=== PATIENT | male | born 1985 | race Caucasian/White ===

== ENCOUNTER 2016-08-09 13:12 | Inpatient (IN) | payer MEDICAID, OTHER ==
[~2016-08-09] VITALS: Ht 182.9 cm; Wt 100.0 kg
[~2016-08-09 13:12] MED LIST: DIVA500T14 PO; HYDR50CA3 PO; PALI156D IM; RISP4TAB2 PO
[2016-08-09] MEDS ORDERED: Magnesium Hydroxide 10 mL Oral Concentration PO PRN (14:30)
[2016-08-09] MEDS ORDERED: LORazepam 1 mg Tablet PO PRN (14:30)
[2016-08-09] MEDS ORDERED: Benzocaine-Menthol Lozenge 2/Pkg PO PRN (14:30)
[2016-08-09] MEDS ORDERED: Alum-Mag Hydrox-Simeth 30 mL Suspension PO PRN (14:30)
--- NOTE | 2016-08-09 16:15 | NUR ---
Nurses Admission Note 31 year old male admitted after losing behavioral control in [facility] grocery store by throwing a glass jar smashing it to the floor and threatening employees. Patient per report, appeared to be responding to inner stimuli. He apparently did not remain medication compliant since his discharge on 08/02/16 from our unit and was unable to stay at the [employer] [facility] due to preference and then psychosis. Patient was served with papers to revoke LRO today. Patient received Haldol 5mg,Ativan 2mg and Benadryl 50mg IM last evening around [id number] at [facility] ER. Patient presented to the unit via stretcher in good behavioral control. His thoughts were clear,organized and reality based. He has not been sleeping while on the streets. He c/o racing thoughts and excessive energy. Patient signed admission paperwork,showered,ate well at dinner. Will maintain Q 15min.checks for safety and support.
--- NOTE | 2016-08-09 18:58 | NUR ---
[facility] Day Shift Pt arrived on the unit at approx 16:25. Pt completed the admission process without incident. Pt affect appears pleasant, though pt appears tired. Pt spends most of the shift getting acclimated to the unit, obtaining food from the dining room, and resting/sleeping in his room. Pt appears appropriate with staff and peers when active on the unit. Pt attended dinner and ate 100% of all meals.
[2016-08-09] MEDS ORDERED: Haloperidol 5 mg/mL Inj ONE (20:35)
--- NOTE | 2016-08-09 23:48 | NUR ---
Nurses Note Seclusion Patient was placed in seclusion at 2030 after an agitated episode prompted by a female peer where he yelled out loudly and grabbed the door on his room pulling it away and off its hinges before throwing it to the floor. He received Haldol 5mg,Ativan 2mg,Benadryl 50mg IM R deltoid. Patient eventually calmed and was returned to his room at 2220 where he remains asleep without signs of distress and will be monitored q 15min. checks for safety. Patient was able to be debriefed about the events.
--- NOTE | 2016-08-10 05:04 | NUR ---
nursing, nights, 11-7 s/o- has appeared to sleep with sitter outside of door after 2244. assessed q 15 minutes. a- no apparent distress. p- monitor behavior/emotional state, quality, times and amount of sleep, use and effect of medication. nalini
--- NOTE | 2016-08-10 05:53 | NUR ---
Pt was upbeat/manic and sexually inappropriate with staff stating he was sexually frustrated at start of shift , after being called names by another Pt he ripped door to his room off while yelling. Walked into seclusion 2029 and medicated. Continued to yell, hit things and then finally sing. Out of seclusion at 2220 to room. Pt asleep at 2245. 1:1 sitter for safety. Pt observed every 15 minutes as ordered.
[2016-08-10] MEDS: hydrOXYzine Pamoate 25 mg Capsule PO PRN (08:15)
[2016-08-10] MEDS ORDERED: Haloperidol 5 mg/mL Inj ONE ×2 (08:31→10:08)
[2016-08-10] MEDS ORDERED: diphenhydrAMINE 50 mg Capsule PO ONE (08:35)
[2016-08-10] MEDS ORDERED: LORazepam 2 mg Tablet ONE (10:13)
[2016-08-10] MEDS ORDERED: Haloperidol 5 mg/mL Inj IM PRN (10:20)
[2016-08-10 10:30] VITALS: BP 149/80; PULSE 106
[2016-08-10] MEDS: diphenhydrAMINE 50 mg Capsule PO PRN ×2 (10:31→15:53)
[2016-08-10] MEDS ORDERED: Divalproex (QD) 500 mg ER24 Tablet PO ONE (10:39)
[2016-08-10] MEDS ORDERED: risperiDONE 2 mg Tablet ONE (10:41)
--- NOTE | 2016-08-10 13:48 | HP ---
[address] [address] HISTORY AND PHYSICAL PATIENT: WILFRED HERNANDEZ : 1985 MR#: [id number] ADMIT: 08/09/2016 JOB ID: [id number] INITIAL EVALUATION: IDENTIFICATION OF PATIENT: The patient is a 31-year-old male well known to myself with recent discharge last week who reportedly was admitted under a revocation of a LR 90, after presenting to the emergency department at [facility] with altered mental status. There is suggestion that the patient has not taken medications since his discharge last week. CHIEF COMPLAINT: "I don't trust any of you, you need to go back to school and learn more about medications." This per patient report. HISTORY OF PRESENT ILLNESS: As stated above, the patient was admitted under a revocation order of his LR 90. The patient has a significant long-term history of diagnostic features including paranoid schizophrenia, polysubstance use and antisocial personality disorder. Last evening the patient escalated to the point of throwing a glass jar, smashing it on the floor, threatening employees. He reportedly was under a Code [place] and seclusion order with injections of Haldol, Ativan and Benadryl. On interview this morning, the patient was seen pacing in the hallways. He showed significant inability to follow directions. Had evidence of racing thoughts, thought blocking, visual tracking throughout. He was agreeable to administer oral doses of Haldol 10 mg, Ativan 2 and Benadryl 50 with also co-administration of Risperdal 2 mg and Depakote 1500 mg due to the fact that he had refused medications last evening. In reviewing his current status, the patient also has been notified that there will be a police report filed due to the fact that he destroyed one of the patient room doors pulling it off of its hinges and throwing it onto the floor. The patient notably has a long-term history of antisocial personality disorder and has had previous incarceration per report. PAST MEDICAL HISTORY: Substantial for allergies to CECLOR, PREDNISONE, SULFAMETHOXAZOLE, TRIMETHOPRIM. His current medications that he was discharged on included: 1. Depakote 1500 mg q.h.s. 2. Risperdal 4 mg q.h.s. However, there is suspicion that he has been noncompliant. Other medical history was reviewed through documentation through [facility]. The patient declined physical examination. PAST PSYCHIATRIC HISTORY: Substantial for multiple hospitalizations, most recent with discharge last week. His current services under monitoring at LR 90 was notably with [facility] and he evidently was residing at [facility]. He denied any usage of substances. However, there is questionable validity. SOCIAL HISTORY: As noted above, the patient is homeless. There was some question of possible drug usage and questionable validity of the patient's response. Abuse history was not reviewed. FAMILY HISTORY: Deferred. DEVELOPMENT HISTORY: Deferred. MENTAL STATUS EXAMINATION: General appearance: The patient was seen pacing the halls but was agreeable to administer oral doses of medication as noted above. His speech is pressured, tangential. His mood is dysphoric, labile. Affect is elevated. His thought process shows evidence of racing thoughts, flight of ideas, loose and disconnected thinking. Thought content: There was no evidence of suicidal or homicidal ideation. Admits to significant agitation and behavioral outburst as noted above. He appears to be quite paranoid, actively hallucinating. He was alert, oriented to place only. Attention and concentration are poor. Insight and judgment are poor. IMPRESSIONS: AXIS I 1. Schizophrenia, schizoaffective disorder, bipolar variant. 2. Schizophrenia, paranoid type, by history. 3. Polysubstance use disorder. AXIS II Antisocial personality features. AXIS III None. AXIS IV Stressors are noted for noncompliance with medications, chronic mental health issues, chronic substance abuse issues. AXIS V Global assessment of functioning of current 20. PLANS: 1. Recommendations for utilization of Depakote 1500 mg ER q.h.s., Risperdal 4 mg q.h.s., Seroquel 100 mg q.4 hours p.r.n. p.o. for agitation, Ativan 2 mg q.4 hours p.o. or IM for agitation or anxiety, Haldol 10 mg p.o. or IM q.4 hours for agitation, Benadryl 50 mg p.o. or IM q.4 hours for EPS. 2. Petition to revoke LR 90 with possible options including return to [facility].
[2016-08-10] MEDS: LORazepam 1 mg Tablet PO PRN (15:53)
--- NOTE | 2016-08-10 15:53 | NUR ---
Nurses PRN Patient requested and received Ativan 2mg ,Haldol 10mg, Benadryl 50mg PO at 1553 for increasing agitation in the dayroom with peers, will assess response. Addendum: 08/10/16 at 2304 by DEMETRIA HURTADO RN Nurses Note Evening Patient has remained in good control this shift. His mood has been depressed with a sad affect. He napped on and off,ate well at dinner and later had snacks and accepted HS medications.Will maintain q 15min. checks for safety and support.
--- NOTE | 2016-08-10 18:09 | NUR ---
Nursing Dayshift: S: "Give me a shot in the arm!" O: Patient has been irritable and agitated this AM. Accepted Ativan 1 mg PO and Vistaril 50 mg at 0815 with no effectiveness noted. Patient more agitated and making derogatory statements towards a female patient about her vagina. Given Haldol 5 mg and Benadryl 50 mg both IM at 0856. Calmer within the half hour. Increasingly agitated yelling above statement and received Ativan 2 mg, Haldol 10 mg, and Benadryl 50 mg all PO at 1030. No effectiveness. Patient continued yelling and MD ordered now doses of Depakote ER 500 mg and Risperdal 4 mg at 1110. Patient progressively calmer afterward and noted to be calm early afternoon. Has eaten well at meals. Has remained calmer through the afternoon and through present. A: Agitated. Belligerent. P: CPOC. Monitor mood and behavior.
--- NOTE | 2016-08-10 18:33 | NUR ---
Observations [id number] Pt was asleep upon start of shift. Upon waking, pt was moved to a different room. Mood was extremely hostile and aggressive towards another male patient, pt stating "I just want to murder that miky." Pt was able to calm down once medicated. Pt was also verbally aggressive towards a female patient as well. Pt paced bardales. He attended all meals, eating 100%. Pt spent the majority of the afternoon sleeping. He stated "I will not take anymore meds." Pt did not participate in group activities. He appears to be very forward to female staff and patients. Pt appears negative regarding medication and future plans. He was observed every 15 minutes of shift as directed.
[2016-08-10] MEDS: risperiDONE 2 mg Tablet PO SCH (21:02)
[2016-08-10] MEDS: Divalproex (QD) 500 mg ER24 Tablet PO SCH (21:03)
--- NOTE | 2016-08-11 05:42 | NUR ---
Nursing Noc Pt noted to be sleeping and start of shift and then up for short periods of time for ADLs. Pt noted to be mostly non-verbal or belligerent with interaction. "that miky think he is funny or something". Pt noted to mostly approach nursing station and stair at staff non-verbally. Continuing to monitor q15 minute, mood, behavior, emotional state, and sleep times. CP
--- NOTE | 2016-08-11 06:35 | NUR ---
Pt asleep much of shift [id number], 2129-. Concerned about outside court date. Pt observed every 15 minutes as ordered.
[2016-08-11] MEDS: diphenhydrAMINE 50 mg Capsule PO PRN (08:22)
[2016-08-11] MEDS: LORazepam 1 mg Tablet PO PRN (08:22)
--- NOTE | 2016-08-11 13:20 | PROG NOTE ---
[address] [address] PROGRESS NOTE PATIENT: WILFRED HERNANDEZ : 1985 MR#: [id number] ADMIT: 08/09/2016 JOB ID: [id number] DATE: 08/11/2016 CHIEF COMPLAINT: "I thought you were going to help me." This per patient report. HISTORY OF PRESENT ILLNESS: As stated above, the patient met with myself briefly in the Day Area. He is quite sedate and has received multiple medication interventions at this time. He continues to be belligerent and aggressive but is redirectable to some degree. His speech is slurred. He is dressed in hospital scrub attire. His mood is dysphoric. Affect irritable, labile. His thought process shows continuation of random flight of ideas, loose and disorganized thinking. His thought content: There has been no evidence of suicidal or homicidal ideation. He descriptively, per nursing staff, has been irritable and labile. He appears to be responding to internal stimulus consistently. He was alert, oriented to place only. Attention and concentration are poor. Insight and judgment are poor. PHYSICAL EXAMINATION: All vital signs are current. Temperature is 36.2, pulse 106, blood pressure 149/80. MEDICATIONS: Review includes Depakote 1500 mg q.h.s., Risperdal 4 mg q.h.s. Seroquel 100 mg q.4 h. p.r.n., Ativan 2 mg q.4 h. p.r.n., Haldol 10 mg q.4 h. p.r.n., and Benadryl 50 mg q.4 h. p.r.n. ASSESSMENT: Walker I: Schizoaffective disorder, bipolar variant. Schizophrenia, paranoid type, by history. Polysubstance use disorder. Walker II: Antisocial personality disorder. Walker III: None. Walker IV: Stressors are noted for chronic mental health issues, noncompliance. Walker V: Global Assessment of Functioning of current 20. PLAN: 1. Recommendations for continuation of all medications as noted. 2. Recommendations for petition to revoke probable on Sunday with revision of LR 90 to MR 90 based on the patient's significant difficulties with rapid decompensation post hospitalization. However, this will be deferred to final judgment of Dr. Kerns and the additional treatment team members.
--- NOTE | 2016-08-11 13:38 | NUR ---
Nursing Note [id number] Behavior S/O: Pt brought footboard from bed & pounded in on nursing station window. He then gave me the footboard & stated, "I wanted to throw this at people & knock their heads off. I could use it as a shield. Shortly afterward he requested medications this morning. He wanted Ativan, Benadryl, & Haldol. Ativan 2 mg, Benadryl 50 mg, & Haldol 10 mg given at 0822. Pt attempted to follow nurse through locked doors on unit. He smiled as the door was shut prior to him getting out. A: Pt con't to have inappropriate volatile behavior. P: Provide structured environment. Monitor medications & effects.
[2016-08-11 14:14] VITALS: BP 141/85; PULSE 97; RESP 16
[2016-08-11] MEDS: Divalproex (QD) 500 mg ER24 Tablet PO SCH (20:03)
[2016-08-11] MEDS: risperiDONE 2 mg Tablet PO SCH (20:04)
--- NOTE | 2016-08-11 20:33 | NUR ---
Case Management/Counselor: S: "You guys said you were going to help me!" O: Met with patient and psychiatrist. Patient slept 8 hours last night per staff. He denies S/I and H/I. He also denies auditory and visual hallucinations. He did not rate depression and anxiety. A: Patient is cooperative, unkept, unpredictable, irritable, labile, poor insight, poor judgment. P: Follow care plan, coordinate out-patient providers.
--- NOTE | 2016-08-12 04:39 | NUR ---
Nursing Noc Patients affect continues to be irritable and labile. Pt noted to attempt to get into nursing station this shift. Pt noted to attempt to interact with other disruptive patient, perhaps to escalate situation or gain attention. Pt little more directable and is not glaring at staff this shift. Pt noted to be first asleep at [id number], up for short while drinking water then back to bed for the rest of the shift. Continuing to monitor safety and sleep times with Q15 minute safety checks. Monitoring mood, bahavior, emotional state and medications. CP
--- NOTE | 2016-08-12 06:03 | NUR ---
Pt asleep most of shift. When up he was labile and easily agitated. Asleep 2100-145, 215 on. Pt observed every 15 minutes as ordered.
[2016-08-12] MEDS: LORazepam 1 mg Tablet PO PRN ×2 (06:04→17:40)
--- NOTE | 2016-08-12 17:00 | NUR ---
[id number]. nurs. S: "You make me sleep by over medicating me...Nobody liked me there, I like to be social but they hated me cept one miky and he was friendly because he wanted..." O: Pt given ativan 2mg at 0604, and seroquel 100mg at 0636 for agitated appearance and request for anxiety meds by pt. Pt loud and restless then returned to bed. Pt mostly asleep until 1330 at which time he was irritable and appearing sedated and slurring words . Within 30 minutes pt looking alert ,speech clear , and pt no longer irritable, testy, and social with staff and some ppeers. Pt needing to be reminded re appropriate boundaries in verbal commentary re other peers and staff. Pt active around unit, discussing his experience with poor/negative interactions with others in [facility]. A: Pt not involved in problem solving shelter self care planning. Pt impulsive with poor insight, frustrated with poor coping. Maintaining behavioural control on unit. P:CNCP Addendum: 08/13/16 at 1509 by KEV WESTBROOK RN After dinner pt asking for nicorette lozenge within an hour after last dose, and became angry, went and kicked far bardales exit door, pt c/o wanting to leave because he can't cope with craving for cigarettes ,refuses offered patch, pt given nicorette and went with staff to patio to exercise to address pent up negative energies, get fresh air, and given 2 mg of ativan at that time 1740. Pt's mood calmer and behaviour controlled after episode, pt continues to try to push at appropriate verbal boundaries.
--- NOTE | 2016-08-12 18:31 | NUR ---
Line Assembler./ c.m. S.:"I feel better. I feel frustrated. I should do more with myself." O.: met with pt. and MD together. Pt. denied SI/HI, denied AH/VH, denied racing thoughts, denied paranoid/delusional thoughts, denied anxiety. He was in and out of his room during the day. He was hoping to go home on for Mary. He also was concerned about his court date that he didn't remember if he missed it already or not. He had difficulty focusing on a conversation and was trying to convince MD on discharging home on Sunday or Sunday. Later pt. had a phone conversation with his family and he became very upset. A.: pt. is cooperative, social with peers, scattered, has unpredictable behavior, easily agitated. P.: monitor behavior, provide safety in the unit, encourage pt. to take meds; follow care plan.
--- NOTE | 2016-08-12 19:03 | PCM.PNPSY ---
Subjective Date of Service Aug 12, 2016 Subjective Patient reports that he is frustrated that he is not moving forward fast enough and not doing enough to progress as a person. He reports that he would like to get a job potentially helping others, or get on SSI and have others help him. He reports that he is concerned about court [facility] which he reports should have occurred today, 08/12/16. No side effect c/o other than drowsiness. Reports no further problems with peer which had resulted in property damage early in stay. Sleep: 7.75+ hours Appetite: "okay" Suicidal and homicidal ideation: denies Auditory hallucinations/Visual hallucinations: denies Other Psychotic Symptoms: disorganization, denies PI Anxiety/Depression: denies Current Medications Current Medications Divalproex Sodium 1,500 mg HS PO Last administered on 08/11/16at 20:03; Admin Dose 1,500 MG; Start 08/10/16 at 21:00 Nicotine Polacrilex 2 mg Q4H PRN BUCCAL Last administered on 08/12/16at 17:32; Admin Dose 2 MG; Start 08/11/16 at 16:40 Risperidone 4 mg HS PO Last administered on 08/11/16at 20:04; Admin Dose 4 MG; Start 08/10/16 at 21:00 Mental Status Exam Appearance: Unkept, Disheveled Attitude: Cooperative Behavior: Distractible Affect: Restricted, Blunted Mood: Anxious Speech Production: Paucity Speech Rate: Lags/Latency Speech Articulation: Normal Thought Content: Negativistic Danger to Self/Suicidal Ideati: None Danger to Others: None Hallucinations: Auditory (Denies), Visual (Denies) Consciousness: Somnolent (somewhat) Orientation: Person, Place, Date, Situation Memory: Short Term Memory (Impaired) Estimate Intellectual Function: Average Basis for IQ estimate: Awareness current events, Word use/vocabulary, Educational history Attention/Concentration & Cogn: Impaired Insight: Limited Judgement: Limited Mental Health Plan The patient is a 31-year-old male with a history of schizoaffective disorder with recent discharge last week who was admitted under a revocation of a LR 90, after presenting to the emergency department at [facility] with altered mental status. There is suggestion that the patient has not taken medications since his discharge last week. The patient was initially quite impulsive and tore a door off its hinges. He is calmer and more organized but still presenting as impulsive. [place] AXIS I 1. Schizoaffective disorder, bipolar type. 2. Polysubstance use disorder. AXIS II Antisocial personality features. AXIS III None. AXIS IV Stressors are noted for noncompliance with medications, chronic mental health issues, chronic substance abuse issues. AXIS V Global assessment of functioning = 30. Medications Medications to address General Physical Health Depakote 1500 mg ER q.h.s., Risperdal 4 mg q.h.s., Seroquel 100 mg q.4 hours p.r.n. p.o. for agitation, Ativan 2 mg q.4 hours p.o. or IM for agitation or anxiety, Hydroxyzine 50mg po q4hr PRN anxiety/agitation/insomnia Haldol 10 mg p.o. or IM q.4 hours for agitation, Benadryl 50 mg p.o. or IM q.4 hours for EPS. Treatments 1. Continue all medications as noted above. 2. Pseudoephedrine and dextromethorphan for coryzal symptoms 3. Patient encouraged to participate in group and milieu therapy. 4. Treatment team to meet with patient on a daily basis 5. Per Dr. Tate, "Recommendations for petition to revoke probable on Sunday with revision of LR 90 to MR 90 based on the patient's significant difficulties with rapid decompensation post hospitalization. However, this will be deferred to final judgment of Dr. Kerns and the additional treatment team members." 6. No special precautions indicated at this time. Charbel Sahu MD Aug 12, 2016 19:03
--- NOTE | 2016-08-12 19:26 | NUR ---
Observations 0700 to 1900 Pt struggled to maintain behavioral control. Pt came out for breakfast and lunch, but other slept during morning until 1330. Pt spent afternoon pacing hallways and conversing with other pts. Pt seemed mostly amiable, but attempts to provoke staff by walking closely next to them and behind them. Pt asked staff if they would be interested in fighting. Pt starting escalating around 1730 and began kicking door at end of pt hallway and screaming. Staff took pt to patio and played music and pt calmed down. Pt then went to sleep and is asleep as of writing. Pt ate 100% of meals and was observed every 15 minutes as ordered.
[2016-08-12] MEDS: risperiDONE 2 mg Tablet PO SCH (23:00)
[2016-08-12] MEDS: Divalproex (QD) 500 mg ER24 Tablet PO SCH (23:00)
--- NOTE | 2016-08-13 05:46 | NUR ---
Observations from [id number] Pt was asleep for most of the evening but when he did wake up, pt was very sexually inappropriate with female staff. He continues to ask for hugs even thought he knows it's against the rules and he asked this abstract writer to "get into bed with him." He is commenting on staff appearance and body parts, and doesn't stop even when told he' being inappropriate. Pt was asleep at 180 and stayed asleep until 2345, was up for 30 minutes and then went back to bed. Pt has been monitored every 15 minutes as directed,
--- NOTE | 2016-08-13 06:27 | NUR ---
Nursing Noc Pt cooperative with medications this shift. Sexually aggressive towards female staff. Noted to be sleeping mostly and Up for ADLs only. Continuing to monitor sleep times, mood behavior, and medications. BHCP Q15 minute safety checks throughtout the night.
[2016-08-13] MEDS: LORazepam 1 mg Tablet PO PRN (10:37)
[2016-08-13] MEDS: guaiFENesin 20 mg/mL 10 mL Syrup PO PRN ×2 (10:37→21:47)
--- NOTE | 2016-08-13 15:09 | NUR ---
1222-0051. nurs. S: "I am a weak person, I give into my cravings,...." O: Pt unable to seriously address his past hx of impulsivity and the adverse consequences of his actions, and px solve future effective coping stats. Pt back and forth to bed to sleep between 0500 and 0930 this am, then more consistently out of room restless around unit, interacting with staff with robin lerma, trying to get attention, trying to test boundaries verbally. Pt trying to minimally scrape and bang furniture to obtain reaction , pt escorted away from interacting with peer intrusively, and involved in ping pong with [facility]. Pt given 2 mg of ativan at 1037. and this med did appear to reduce pt's acting out behaviour and reduce further escalation. Addendum: 08/13/16 at 1539 by KEV WESTBROOK RN Pt able to report with some serious attention that his depression was 2/10 and anxiety "none" even when asked if he was anxious re. managing on discharge. Pt reports no SI. Pt out on patio for fresh air breaks and exercise with ball games over afternoon and appears to help him focus some of his restless energy and help him relax.
--- NOTE | 2016-08-13 15:35 | PCM.PNPSY ---
Subjective Date of Service Aug 13, 2016 Subjective The patient reports that he is "doing alright today." Patient reports that he is "ashamed that I did that" [break the door] "I felt I had to do something explosive." He reports that he is feeling stable enough for discharge but quickly snapped, smacked his fist into his hand, and became rather irritable when given the answer that he should try to not damage anything for the remainder of his stay as this had become a pattern and could potentially cause problems in the future. He reported that he would like to move forward regardless, "the next step is the first step because I'm at the bottom ring." Patient stated he would [facility] and then go to [facility]. Sleep: 7.75+ hours Appetite: "okay" Suicidal and homicidal ideation: denies Auditory hallucinations/Visual hallucinations: denies Other Psychotic Symptoms: disorganization, denies PI Anxiety: 09/05 Depression: 12/04 Current Medications Current Medications Guaifenesin 200 mg Q6H PRN PO Last administered on 08/13/16at 10:37; Admin Dose 200 MG; Start 08/13/16 at 10:20 Nicotine Polacrilex 2 mg Q4H PRN BUCCAL Last administered on 08/13/16at 11:06; Admin Dose 2 MG; Start 08/11/16 at 16:40 Mental Status Exam Appearance: Unkept, Disheveled Attitude: Cooperative, Hostile/Threatening (briefly) Behavior: Distractible Affect: Restricted Mood: Anxious Speech Production: Paucity Speech Rate: Lags/Latency Speech Articulation: Normal Thought Content: Negativistic Danger to Self/Suicidal Ideati: None Danger to Others: None Hallucinations: Auditory (Denies), Visual (Denies) Consciousness: Alert Orientation: Person, Place, Date, Situation Memory: Short Term Memory (Impaired) Estimate Intellectual Function: Average Basis for IQ estimate: Awareness current events, Word use/vocabulary, Educational history Attention/Concentration & Cogn: Impaired Insight: Limited Judgement: Limited Mental Health Plan The patient is a 31-year-old male with a history of schizoaffective disorder with recent discharge last week who was admitted under a revocation of a LR 90, after presenting to the emergency department at [facility] with altered mental status. There is suggestion that the patient has not taken medications since his discharge last week. The patient was initially quite impulsive and tore a door off its hinges. He is calmer and more organized but still presenting as impulsive. It is unclear what community resources remain available to him at this time due to his ongoing impulsivity. [place] AXIS I 1. Schizoaffective disorder, bipolar type. 2. Polysubstance use disorder. AXIS II Antisocial personality features. AXIS III None. AXIS IV Stressors are noted for noncompliance with medications, chronic mental health issues, chronic substance abuse issues. AXIS V Global assessment of functioning = 30. Medications Medications to address General Physical Health Depakote 1500 mg ER q.h.s., Risperdal 4 mg q.h.s., Seroquel 100 mg q.4 hours p.r.n. p.o. for agitation, Ativan 2 mg q.4 hours p.o. or IM for agitation or anxiety, Hydroxyzine 50mg po q4hr PRN anxiety/agitation/insomnia Haldol 10 mg p.o. or IM q.4 hours for agitation, Benadryl 50 mg p.o. or IM q.4 hours for EPS. Treatments 1. Continue all medications as noted above. 2. Pseudoephedrine and dextromethorphan for coryzal symptoms 3. Patient encouraged to participate in group and milieu therapy. 4. Treatment team to meet with patient on a daily basis 5. Per Dr. Tate, "Recommendations for petition to revoke probable on Sunday with revision of LR 90 to MR 90 based on the patient's significant difficulties with rapid decompensation post hospitalization. However, this will be deferred to final judgment of Dr. Kerns and the additional treatment team members." 6. No special precautions indicated at this time. 7. CBC, CMP, Valproic acid level in am. Charbel Sahu MD Aug 13, 2016 15:35
--- NOTE | 2016-08-13 16:32 | NUR ---
Ep Technologist./ c.m. S.:"I'm doing all right. I feel more like a human right now." O.: met with pt. and MD together in a private room. Pt. slept a lot last night but it was a broken sleep. He felt more rested today. He denied SI/HI, denied AH/VH, rated depression at 4/10 and anxiety at 1/10. He said that his thoughts were "slow" today. He is waiting for his family visit on Sunday. He said that he needed a stable housing. He wanted to go to [facility] prior to [facility]. He became angry and threatening after MD mentioned his violent behavior towards hospital property. "You can f---ing discharge me now! You are treating me like a f---ing child!I don't need this!" It took pt. some time to calm down. He was in and out of his room during the day. He was hitting renee occasionally and running in a bardales. A.: pt. is unpredictable, easily agitated and angry, intrusive at times, looks restless and gamy. P.: monitor behavior, provide safety in the unit; follow care plan.
[2016-08-13 17:28] VITALS: BP 133/78; PULSE 92; RESP 17
--- NOTE | 2016-08-13 17:43 | NUR ---
[facility] [place] Day Shift Pt maintained behavioral control throughout the shift. Pt affect appears mostly euthymic, somewhat manic. Pt spends most of the shift pacing the unit, interacting with peers, and participating in unit activities. Pt is mostly appropriate with staff and peers, but is occasionally inappropriate during interactions with female staff and peers. Pt is redirectable. Pt participated actively in afternoon group activity. Pt attended all meals and ate approx 100% of all meals.
[2016-08-13] MEDS: risperiDONE 2 mg Tablet PO SCH (21:18)
[2016-08-13] MEDS: Divalproex (QD) 500 mg ER24 Tablet PO SCH (21:18)
[2016-08-14] MEDS: hydrOXYzine Pamoate 25 mg Capsule PO PRN (01:00)
--- NOTE | 2016-08-14 05:57 | NUR ---
Nursing 7p-7a Pt remains hypersexual in thoughts and statements when around females. He has maintained behavioral control this shift. Able to follow direction for the most part. Visible out on the unit and participatory in unit activities. Took scheduled medication. He received Robitussin prior to bed for a bad cough and later received Vistaril 50mg for anxiety. Adequate sleep through the night with 7.5 hours. He awoke briefly x 2 and quickly back to sleep both times. His sleep has improved compared to previous nights.
[2016-08-14 09:31] LABS: BASOPHILS % (AUTO) 0.5 % (0-3); EOSINOPHILS % (AUTO) 2.7 % (0-5); MONOCYTES % (AUTO) 8.7 % (4-12); Mean Corpuscular Hemoglobin 28.9 pg (27.0-35.0); Mean Corpuscular Volume 85.3 fL (81-100); NEUTROPHILS % (AUTO) 70.8 % (40-74); Platelet Count 220 bil/L (150-400)
--- NOTE | 2016-08-14 13:37 | PCM.PNPSY ---
Subjective Date of Service Aug 14, 2016 Subjective I spent 30 minutes both reviewing his treatment plan and providing supportive and educational psychotherapy. I spent more than 50% of the time counseling the patient. I reviewed the treatment plan with the patient and discussed options available including the potential risks, benefits and side effects. Emery reports that he is ready for discharge and is hoping for a fdc. The Staff reports that he has been very active on the unit. He had been quite disruptive over the weekend and responded verbally in a verbally aggressive manner to another patient who was agitated. Today he is participating well in one-to-one unit and group activities. He slept 7 hours. He denies medication side effects. Patient was able to identify his medications and what they were used to treat. He acknowledged that he was medication noncompliant as an outpatient. He appeared to understand the need for medications by the questions he asked during our discussion. Current Medications Current Medications Guaifenesin 200 mg Q6H PRN PO Last administered on 08/13/16at 21:47; Admin Dose 200 MG; Start 08/13/16 at 10:20 Mental Status Exam Appearance: Unkept, Disheveled Attitude: Pleasant, Cooperative Behavior: Distractible Affect: Restricted Mood: Expansive, Anxious Speech Production: Paucity Speech Rate: Lags/Latency Speech Articulation: Normal Thought Content: Negativistic Danger to Self/Suicidal Ideati: None Danger to Others: None Hallucinations: Auditory (Denies), Visual (Denies) Consciousness: Alert Orientation: Person, Place, Date, Situation Memory: Short Term Memory (Impaired) Estimate Intellectual Function: Average Basis for IQ estimate: Awareness current events, Word use/vocabulary, Educational history Attention/Concentration & Cogn: Impaired Insight: Limited Judgement: Limited Result Diagram: 08/14/1691708/14/16917 Mental Health Plan The patient is a 31-year-old male with a history of antisocial personality disorder and also schizoaffective disorder with a recent discharge last week. He had been admitted under a revocation of a LR 90, after presenting to the emergency department at [facility] with altered mental status. There is suggestion that the patient has not taken medications since his discharge last week. The patient was initially quite impulsive and tore a door off its hinges this past weekend. He is calmer and more organized but still presenting as impulsive. It is unclear what community resources remain available to him at this time due to his ongoing impulsivity. We may need to petition for [facility] long-term treatment. [place] AXIS I 1. Schizoaffective disorder, bipolar type. 2. Polysubstance use disorder. AXIS II Antisocial personality features. AXIS III None. AXIS IV Stressors are noted for noncompliance with medications, chronic mental health issues, chronic substance abuse issues. AXIS V Global assessment of functioning = 35. Medications Medications to address General Physical Health Depakote 1500 mg ER q.h.s., Risperdal 4 mg q.h.s., Seroquel 100 mg q.4 hours p.r.n. p.o. for agitation, Ativan 2 mg q.4 hours p.o. or IM for agitation or anxiety, Hydroxyzine 50mg po q4hr PRN anxiety/agitation/insomnia Haldol 10 mg p.o. or IM q.4 hours for agitation, Benadryl 50 mg p.o. or IM q.4 hours for EPS. Treatments 1. Continue all medications as noted above. 2. Pseudoephedrine and dextromethorphan for coryzal symptoms 3. Patient encouraged to participate in group and milieu therapy. 4. Treatment team to meet with patient on a daily basis 5. Dr. Tate, "Recommendations for petition to revoke probable on Sunday with revision of LR 90 to MR 90 based on the patient's significant difficulties with rapid decompensation post hospitalization. I met with the patient this morning and we discussed least restrictive alternatives versus most restrictive alternatives. Patient repeatedly stated that he believed he could maintain as an outpatient if he had the right follow- up. I am concerned given the rapid number of rapid readmissions but will consider this over the next 24 hours. 6. No special precautions indicated at this time. 7. CBC, CMP, Valproic acid level in am. Ritchie Kerns MD Aug 14, 2016 13:37
[2016-08-14] MEDS: LORazepam 1 mg Tablet PO PRN (14:25)
--- NOTE | 2016-08-14 15:01 | NUR ---
Nursing Note [id number] Behavior S/O: Pt frequently pacing halls. Pt started to follow me to door going off unit. Confronted pt about following me. Pt smiled & stated, "You think I'm trying to scare you?!" Pt d/n follow further. Pt attending groups today. His goal today was to do laundry. Pt requested at 1415 for Ativan. He reports, "I feel angry for no reason." Ativan 2 mg given. Pt able to maintain behavioral control. A: Pt enjoys teasing people & has poor boundaries about how much is enough. P: Provide supportive environment. Monitor medications & effects.
[2016-08-14] MEDS: Divalproex (QD) 500 mg ER24 Tablet PO SCH (20:36)
[2016-08-14] MEDS: risperiDONE 2 mg Tablet PO SCH (20:36)
--- NOTE | 2016-08-14 22:08 | NUR ---
Pt maintained controlled behavior on unit. Affect appeared bright and Pt stated he was looking forward to DC in near future to [facility]. Pt up on unit socializing with peers and staff and conversation appropriate. Pt compliant with meds and is currently asleep in room. Q15min safety checks done per protocol, [facility] sleep, behavior, safety
--- NOTE | 2016-08-15 03:30 | NUR ---
Observations 1900 to 0700 Pt was in and out of his room for most of the evening. Pt had some snacks and walked the hallways for awhile before going back to his room. Pt affect was flat. Pt first appeared asleep at 21:30 and was observed every 15 minutes through the night as directed.
--- NOTE | 2016-08-15 05:45 | NUR ---
Nursing: surface plate inspector Patient noted to be awake briefly at 0100 to check the time. Patient appears to be sleeping on all subsequent safety checks.
[2016-08-15 10:06] VITALS: BP 127/68; PULSE 80; RESP 17
--- NOTE | 2016-08-15 11:49 | NUR ---
Nursing Note [id number] Behavior S/O: Pt out of room most of the day. Pt ate 100% of breakfast. Pacing halls. Blocked nurse from going into nurses station, smiled & stated sarcastically, "I'm sorry, I'm sorry, I'm sorry" while continuing to block nurse. Pt after a few minutes did move & laughed. Pt went to outside patio during group. Attend community meeting this morning. VS stable. Frequent multiple requests from staff. A: Pt unable to set appropriate boundaries. P: Provide supportive environment. Monitor medications & effects.
--- NOTE | 2016-08-15 12:00 | NUR ---
Process Development Chemist./ c.m. S.:"I'm good. I'm going to court tomorrow. Did you call [facility]? I'm going to [facility] tomorrow after the court." O.: met with pt. early in the morning. He is expecting to see his family today in the evening. He talked about his possible discharge tomorrow after court but he didn't know for sure where he would go. He denied SI/HI, denied AH/VH. He couldn't carry on a conversation well. He was moving constantly and talking about multiple things at once. His mood was changing all the time from even to angry and unpredictable. Later pt. asked the commercial lines underwriter to be present when he would have a mtg with MD. Love.: pt. is unpredictable, looks restless and tired, has poor boundaries. P.: monitor behavior, court tomorrow, provide safety in the unit; follow care plan.
--- NOTE | 2016-08-15 13:44 | NUR ---
Obs Dayshift Pt is participating, restless, bored, joking, energetic, good eye contact, engages well w/ peers and staff, mostly appropriate. Pt participates in groups, encourages peers. Pt spend a lot of time walking the unit, entertaining peers and staff, talking. Spent a hour outside bowling and talking. Read the daily reading in comm. meeting. Watched movie w/ peers. Pt made a statement that he was told he was going to [facility] and was ok with the idea, talked w/ a couple of peers that have been before. Good ADL's, Good meals
--- NOTE | 2016-08-15 13:51 | PCM.PNPSY ---
Subjective Date of Service Aug 15, 2016 Subjective I spent 30 minutes both reviewing his treatment plan and providing supportive and educational psychotherapy. I spent more than 50% of the time counseling the patient. I reviewed the Court senior care process with the patient and discussed options available including his right to talk with the printed circuit layout taper. Emery reports that he is ready for discharge and is hoping for a care home. The Staff reports that he has been hyperactive on the unit. He had been quite disruptive over the weekend and responded verbally in a verbally aggressive manner to another patient who was agitated. Today he is participating well in one-to-one unit and group activities. He slept 8 hours. He denies medication side effects. Patient was able to identify his medications and what they were used to treat. He appeared to understand the need for medications by the questions he asked during our discussion. Mental Status Exam Vital Signs Vital Signs Date Time Temp Pulse Resp B/P Pulse Ox O2 Delivery O2 Flow Rate FiO2 08/15/16 10:06 36.4 80 17 127/68 Appearance: Neat/well groomed Attitude: Pleasant, Cooperative Behavior: Distractible Affect: Labile Mood: Expansive, Anxious Speech Production: Normal Speech Rate: Normal Speech Articulation: Normal Thought Content: Appropriate Danger to Self/Suicidal Ideati: None Danger to Others: None Consciousness: Alert Orientation: Person, Place, Date, Situation Estimate Intellectual Function: Average Basis for IQ estimate: Awareness current events, Word use/vocabulary, Educational history Attention/Concentration & Cogn: Impaired Insight: Limited Judgement: Limited Result Diagram: 08/14/1691708/14/1618 Mental Health Plan He is a 31year-old white male, who has been struggling with symptoms of psychosis and mood instability for the past 10 years. He is medication noncompliant and tends to use recreational drugs. Since release he has not been taking his medications. He is currently showing multiple symptoms of psychosis with disorganized thought, flight of ideas, perseveration and extremely poor judgment and insight. Current symptoms: I have met with the above patient and he continues to have significant symptoms of psychosis. His main issue is schizophrenia and co- occurring issues are medication noncompliance and significant substance abuse. The condition is chronic and has been present for the past 10 years (The patient meets diagnostic features of paranoid schizophrenia, polysubstance use and antisocial personality disorder). At present it is of a moderate intensity manifesting with escalating to the point of throwing a glass jar, smashing items on the floor, threatening employees, and causing property damage on the unit to the tune of $3-$4000 by destroying one of the rooms. A behavioral Code [place] had to be called and he required seclusion and injections of Haldol, Ativan and Benadryl to maintain safety. All the above symptoms and behaviors are made worse by not taking his medications, poor sleep, interpersonal relationship conflicts and ongoing substance abuse. He continues to present with little insight into his mental illness or need for medications. I believe a revocation of his 90 day LRO is necessary given this lack of insight and severity of impairment. [place] AXIS I 1. Schizoaffective disorder, bipolar type. 2. Polysubstance use disorder. AXIS II Antisocial personality features. AXIS III None. AXIS IV Stressors are noted for noncompliance with medications, chronic mental health issues, chronic substance abuse issues. AXIS V Global assessment of functioning = 35. Medications Medications to address General Physical Health Depakote 1500 mg ER q.h.s., Risperdal 4 mg q.h.s., Seroquel 100 mg q.4 hours p.r.n. p.o. for agitation, Ativan 2 mg q.4 hours p.o. or IM for agitation or anxiety, Hydroxyzine 50mg po q4hr PRN anxiety/agitation/insomnia Haldol 10 mg p.o. or IM q.4 hours for agitation, Benadryl 50 mg p.o. or IM q.4 hours for EPS. Treatments 1. Continue all medications as noted above. 2. Pseudoephedrine and dextromethorphan for coryzal symptoms 3. Patient encouraged to participate in group and milieu therapy. 4. Treatment team to meet with patient on a daily basis 5. Patient scheduled for court in the a.m., I am requesting a 90 day revocation. 6. No special precautions indicated at this time. 7. CBC, CMP, Valproic acid level in am. Ritchie Kerns MD Aug 15, 2016 13:51
[2016-08-15] MEDS: guaiFENesin 20 mg/mL 10 mL Syrup PO PRN (13:58)
[2016-08-15] MEDS: Divalproex (QD) 500 mg ER24 Tablet PO SCH (20:17)
[2016-08-15] MEDS: risperiDONE 2 mg Tablet PO SCH (20:18)
[2016-08-15] MEDS: LORazepam 1 mg Tablet PO PRN (21:21)
[2016-08-15] MEDS: hydrOXYzine Pamoate 25 mg Capsule PO PRN (21:42)
--- NOTE | 2016-08-15 21:52 | NUR ---
Nursing Note Yaima Pt had visit from mother. Pt was increasingly restless, and energetic after visit with mom. Started making inappropriate remarks to female staff. Pacing hallway, humping tv. Pt was given ativan and Pt requested "more pills". Pt was asked to keep it down and Pt became verbally threatening to [facility]. Security was called. Pt was escorted to his room by security and staff. PO Haldol and Vistaril given. Pt debriefed that threatening staff was not appropriate and Pt agreed to try and calm down and stay in room. Q15 min safety checks done per protocol, PT currently resting in room. [facility] sleep, safety, behavior
--- NOTE | 2016-08-16 02:52 | NUR ---
Observations 1900 to 0700 Pt behavior was inappropriate and disruptive for most of the night. Pt told me me right when my shift started that he didn't like my voice so that's why he hates me. Pt said the same thing when I was filling out the board in the DR, to the point his visitors told him to calm down. Pt a few hours later was yelling and clapping when Pt's were asleep. Pt then began pelvic thrusting the TV and kicking the chairs and laughing. I asked Pt to quiet down because people were sleeping. He didn't like that, I then told him if he cant act in the proper way and be a little quieter that I would have to turn the movie off earlier. Pt then proceed to walk towards me doing some gang type movements with his hands over his head and lifting up his shirt as if he was carrying a gun. I said to him "come on Emery you're not a gangster now, just don't be so loud. He became enraged and walking towards me with his hands up in the fighting stance and threatening all types of violence against me. I went to the nurse station and called security for a show of force. Pt continued yelling obscenities at me until he seen me on the phone. Pt then laid down on the floor in front of the med window. Once security arrived I told him that he's the choice to go to his room or seclusion if he couldn't act in an appropriate way. Pt asked if he could go to his room on his own. I told he he can do that but he needs to stay there for the rest of the evening. Pt went to his stefano and yelled out many more obscenities at me including "fat f--k". Security stayed present until the Pt took his meds. Pt has stayed in his room as requested. Pt first appeared asleep at 21:30 and was observed every 15 minutes through the night as directed.
--- NOTE | 2016-08-16 06:18 | NUR ---
Sleep 11p-7a Adequate sleep through the night with no noted distress or awakening per protocol checks. Total sleep 7.5+ hours.
--- NOTE | 2016-08-16 12:36 | PCM.PNPSY ---
Subjective Date of Service Aug 16, 2016 Subjective I spent 30 minutes both reviewing his treatment plan and providing supportive and educational psychotherapy. I spent more than 50% of the time counseling the patient. I reviewed the Court care home process with the patient and discussed options available . He and his candy vendor decided to postpone his court until this Sunday. This was in hopes that Emery could stabilize and potentially be discharged. Emery reports that he is ready for discharge and is hoping for a fdc. Really wants to smoke cigarettes and is very frustrated about this. He showing very poor insight and judgment. His impulse control relative to normal situations is barely maintained. The Staff reports that he has been hyperactive on the unit. He had been quite disruptive over the weekend and responded verbally in a verbally aggressive manner to another patient who was agitated. Today he is participating well in one-to-one unit and group activities. He slept 7 hours. He denies medication side effects. Patient was able to identify his medications and what they were used to treat. He appeared to understand the need for medications by the questions he asked during our discussion. Mental Status Exam Appearance: Neat/well groomed Attitude: Pleasant, Cooperative Behavior: Distractible Affect: Labile Mood: Expansive, Anxious Speech Production: Normal Speech Rate: Normal Speech Articulation: Normal Thought Content: Appropriate Danger to Self/Suicidal Ideati: None Danger to Others: None Consciousness: Alert Orientation: Person, Place, Date, Situation Estimate Intellectual Function: Average Basis for IQ estimate: Awareness current events, Word use/vocabulary, Educational history Attention/Concentration & Cogn: Impaired Insight: Limited Judgement: Limited Result Diagram: 08/14/1691708/14/16 09 Mental Health Plan He is a 31year-old white male, who has been struggling with symptoms of psychosis and mood instability for the past 10 years. He is medication noncompliant and tends to use recreational drugs. Since release he has not been taking his medications. He is currently showing multiple symptoms of psychosis with disorganized thought, flight of ideas, perseveration and extremely poor judgment and insight. Current symptoms: I have met with the above patient and he continues to have significant symptoms of psychosis. His main issue is schizophrenia and co- occurring issues are medication noncompliance and significant substance abuse. The condition is chronic and has been present for the past 10 years (The patient meets diagnostic features of paranoid schizophrenia, polysubstance use and antisocial personality disorder). At present it is of a moderate intensity manifesting with escalating to the point of throwing a glass jar, smashing items on the floor, threatening employees, and causing property damage on the unit to the tune of $3-$4000 by destroying one of the rooms. A behavioral Code Mccarthy had to be called and he required seclusion and injections of Haldol, Ativan and Benadryl to maintain safety. All the above symptoms and behaviors are made worse by not taking his medications, poor sleep, interpersonal relationship conflicts and ongoing substance abuse. He continues to present with little insight into his mental illness or need for medications. I believe a revocation of his 90 day LRO is necessary given this lack of insight and severity of impairment. We have rescheduled court until this next Sunday. At present 08/16/2016 Emery is demonstrating the ability to interact in a calm and socially appropriate manner. He does requires multiple redirections from staff but is receptive to this feedback. [place] AXIS I 1. Schizoaffective disorder, bipolar type. 2. Polysubstance use disorder. AXIS II Antisocial personality features. AXIS III None. AXIS IV Stressors are noted for noncompliance with medications, chronic mental health issues, chronic substance abuse issues. AXIS V Global assessment of functioning = 35. Medications Medications to address General Physical Health Depakote 1500 mg ER q.h.s., Risperdal 4 mg q.h.s., Seroquel 100 mg q.4 hours p.r.n. p.o. for agitation, Ativan 2 mg q.4 hours p.o. or IM for agitation or anxiety, Hydroxyzine 50mg po q4hr PRN anxiety/agitation/insomnia Haldol 10 mg p.o. or IM q.4 hours for agitation, Benadryl 50 mg p.o. or IM q.4 hours for EPS. Treatments 1. Continue all medications as noted above. 2. Pseudoephedrine and dextromethorphan for coryzal symptoms 3. Patient encouraged to participate in group and milieu therapy. 4. Treatment team to meet with patient on a daily basis 5. Patient scheduled for court in the a.m., I am requesting a 90 day revocation. 6. No special precautions indicated at this time. 7. CBC, CMP, Valproic acid level in am. 8. Court date moved to this coming Sunday. Ritchie Kerns MD Aug 16, 2016 12:36
--- NOTE | 2016-08-16 16:32 | NUR ---
Obs Dayshift Pt spent the day in his room sleeping. Got up for meals and court, then went right back to bed. Little to no engaging w/ others this shift. Pt has been calm, quiet, tired. No ADL's, Good meals
--- NOTE | 2016-08-16 18:45 | NUR ---
[id number]. nurs . S/0: Pt noted to be in very quiet subdued mood through day, frequently returning to sleep on mattress on floor in bedrm and stated that he did not feel well some residual cold symptoms. Pt did attend court hearing remained calm under control and was continued to next Sunday. Pt did take patio break with RT and noted to be quiet without usual energetic movts and verbally brief , polite with few request or commentary. No prn meds given over day pt's temp 37.2 in am continue to monitor URI. P:CNCP
--- NOTE | 2016-08-16 18:54 | NUR ---
Case Management/Counselor: S: "Miladis, how are you today?" O: Met with patient. Patient slept 7+ hours last night per staff. However, patient slept the majority of the day. Patient denies S/I and H/I. He also denies auditory and visual hallucinations. He did not rate depression and anxiety. A: Patient is cooperative, labile, anxious, distractible, limited insight, limited judgment. P: Follow care plan, coordinate out-patient providers.
[2016-08-16] MEDS: risperiDONE 2 mg Tablet PO SCH (20:45)
[2016-08-16] MEDS: Divalproex (QD) 500 mg ER24 Tablet PO SCH (20:46)
--- NOTE | 2016-08-16 21:11 | NUR ---
Behavior Pt found lying in his bed, awake. I stated that he had spent alot of time in bed today. The pt agreed. He is afebrile. I asked if he felt ok. The pt stated, "I took alot of pills last night. I took ativan, haldol, and vistaril. I wanted to see what they would do to me." RN encouraged pt to be interactive in group area get a snack. Pt responded positively by coming out to the group area. Interacting and then having a snack. Care ongoing
--- NOTE | 2016-08-17 01:32 | NUR ---
Observations 1900 to 0700 Pt was in his room for most of the evening. Pt had some snacks before going back to his room. Pt affect was flat. Pt first appeared asleep at 21:45 and was observed every 15 minutes through the night as directed.
--- NOTE | 2016-08-17 05:36 | NUR ---
nursing, nights, 11-7 s/o- has appeared to sleep after 2144 to 299. had a snack and returned to bed, appearing to sleep after 344. assessed q 15 minutes. a- generally appropriate, interrupted sleep, no apparent distress. p- monitor behavior/emotional state, quality, times and amount of sleep, use and effect of medication. nalini
--- NOTE | 2016-08-17 12:35 | NUR ---
[id number]. nurs. S: "How can I be a 10/10 when I am in here" O: Pt out on unit reporting that his cold symptoms had improved from yesterday. Pt with bright affect, active out on unit seeking to engage with staff and some peers with joking commentary and behaviours also dancing and participating in grp physical exercising activities. pt stated to staff last night that he taken a lot of prn meds "to see what would happen" and felt that his quiet presentation, sedated, slowed behaviour, and long periods in bed was a result of these meds taken night before on . Pt had one flare of frustration and anger re. his continued hospitalization but does not appear to work on any discharge self care planing. A: Pt maintaining behavioural control does push boundaries verbally aware of appropriate lts. P:CNCP
--- NOTE | 2016-08-17 13:08 | PCM.PNPSY ---
Subjective Date of Service Aug 17, 2016 Subjective I spent 20 minutes both reviewing his treatment plan and providing supportive and educational psychotherapy. I spent more than 50% of the time counseling the patient. Emery reports that he is feeling sedated but calm.. He showing very poor insight and judgment. His impulse control relative to normal situations is barely maintained. The Staff reports that he has been calm and appropriate on the unit. He had been quite disruptive over the weekend and responded verbally in a verbally aggressive manner to another patient who was agitated. Today he is participating well in one-to-one unit and group activities. He slept 7.75 hours. He denies medication side effects. Mental Status Exam Appearance: Neat/well groomed Attitude: Pleasant, Cooperative Behavior: No unusual behavior Affect: Well Modulated/Appropriate Mood: Euthymic Speech Production: Normal Speech Rate: Normal Speech Articulation: Normal Thought Content: Appropriate Danger to Self/Suicidal Ideati: None Danger to Others: None Consciousness: Alert Orientation: Person, Place, Date, Situation Estimate Intellectual Function: Average Basis for IQ estimate: Awareness current events, Word use/vocabulary, Educational history Attention/Concentration & Cogn: Impaired Insight: Limited Judgement: Limited Result Diagram: 08/14/1691708/14/16917 Mental Health Plan He is a 31year-old white male, who has been struggling with symptoms of psychosis and mood instability for the past 10 years. He is medication noncompliant and tends to use recreational drugs. Since release he has not been taking his medications. He is currently showing multiple symptoms of psychosis with disorganized thought, flight of ideas, perseveration and extremely poor judgment and insight. Current symptoms: I have met with the above patient and he continues to have significant symptoms of psychosis. His main issue is schizophrenia and co- occurring issues are medication noncompliance and significant substance abuse. The condition is chronic and has been present for the past 10 years (The patient meets diagnostic features of paranoid schizophrenia, polysubstance use and antisocial personality disorder). At present it is of a moderate intensity manifesting with escalating to the point of throwing a glass jar, smashing items on the floor, threatening employees, and causing property damage on the unit to the tune of $3-$4000 by destroying one of the rooms. A behavioral Code Mccarthy had to be called and he required seclusion and injections of Haldol, Ativan and Benadryl to maintain safety. All the above symptoms and behaviors are made worse by not taking his medications, poor sleep, interpersonal relationship conflicts and ongoing substance abuse. He continues to present with little insight into his mental illness or need for medications. I believe a revocation of his 90 day LRO is necessary given this lack of insight and severity of impairment. We have rescheduled court until this next Sunday. Over the past 24 hours Emery has continued to demonstrate the ability to interact in a calm and socially appropriate manner. He has required less redirection from staff as he is starting to self manage. [place] AXIS I 1. Schizoaffective disorder, bipolar type. 2. Polysubstance use disorder. AXIS II Antisocial personality features. AXIS III None. AXIS IV Stressors are noted for noncompliance with medications, chronic mental health issues, chronic substance abuse issues. AXIS V Global assessment of functioning = 40. Medications Medications to address General Physical Health Depakote 1500 mg ER q.h.s., Risperdal 4 mg q.h.s., Seroquel 100 mg q.4 hours p.r.n. p.o. for agitation, Ativan 2 mg q.4 hours p.o. or IM for agitation or anxiety, Hydroxyzine 50mg po q4hr PRN anxiety/agitation/insomnia Haldol 10 mg p.o. or IM q.4 hours for agitation, Benadryl 50 mg p.o. or IM q.4 hours for EPS. Treatments 1. Continue all medications as noted above. 2. Pseudoephedrine and dextromethorphan for coryzal symptoms 3. Patient encouraged to participate in group and milieu therapy. 4. Treatment team to meet with patient on a daily basis 5. Patient scheduled for court in the a.m., I am requesting a 90 day revocation. 6. No special precautions indicated at this time. 7. CBC, CMP, Valproic acid level in am. 8. Court date moved to this coming Sunday Ritchie Kerns MD Aug 17, 2016 13:08
[2016-08-17] MEDS: guaiFENesin 20 mg/mL 10 mL Syrup PO PRN (16:08)
[2016-08-17 17:46] VITALS: BP 130/81; PULSE 103; RESP 18
--- NOTE | 2016-08-17 18:23 | NUR ---
[facility] Day Shift Pt maintained behavioral control throughout the shift. Pt affect appears mostly euthymic, somewhat manic. Pt spends most of the shift pacing the unit, interacting with peers, and participating in unit activities. Pt is mostly appropriate with staff and peers, but is occasionally inappropriate during interactions with female staff and peers. Pt is redirectable, though he requires more redirection in the evening. Pt did not attend community meeting. Pt participated actively in afternoon group activity. Pt attended all meals and ate approx 100% of all meals.
--- NOTE | 2016-08-17 18:45 | NUR ---
Case Management/Counselor: S: "I'm doing better today." O: Met with patient. Patient slept 7.75 hours last night per staff. Patient denies S/I and H/I. He also denies auditory and visual hallucinations. He did not rate depression and anxiety. A: Patient is cooperative, improving, brighter, smiling, pleasant, limited insight, limited judgment. P: Follow care plan, coordinate out-patient providers.
[2016-08-17] MEDS: LORazepam 1 mg Tablet PO PRN (19:27)
[2016-08-17] MEDS: diphenhydrAMINE 50 mg Capsule PO PRN (20:00)
[2016-08-17] MEDS: Divalproex (QD) 500 mg ER24 Tablet PO SCH (20:57)
[2016-08-17] MEDS: risperiDONE 2 mg Tablet PO SCH (20:58)
--- NOTE | 2016-08-18 05:14 | NUR ---
nursing, nights, 11-7 s/o- has appeared to sleep after 2144 during q 15 minute assessments. a- no apparent distress. p- monitor behavior/emotional state, quality, times and amount of sleep, use and effect of medication. nalini
--- NOTE | 2016-08-18 05:45 | NUR ---
Pt very active and inappropriate until going to bed and asleep at 2145. Pt observed every 15 minutes as ordered.
[2016-08-18 09:54] VITALS: BP 123/77; PULSE 107; RESP 20
--- NOTE | 2016-08-18 13:07 | PCM.PNPSY ---
Subjective Date of Service Aug 18, 2016 Subjective I spent 30 minutes both reviewing his treatment plan and providing supportive and educational psychotherapy. I spent more than 50% of the time counseling the patient. Emery reports that he is feeling calm.. He showing improved insight and judgment. His impulse control relative to normal social situations markedly improved. The Staff reports that he has been calm and appropriate on the unit. Today he is participating well in one-to-one unit and group activities. He slept 7.75 hours. He is hoping to discharge to a least restrictive [facility] rather than [facility]. He denies medication side effects. Mental Status Exam Vital Signs Vital Signs Date Time Temp Pulse Resp B/P Pulse Ox O2 Delivery O2 Flow Rate FiO2 08/18/16 09:54 36.6 107 20 123/77 Appearance: Neat/well groomed Attitude: Pleasant, Cooperative Behavior: No unusual behavior Affect: Well Modulated/Appropriate Mood: Euthymic Speech Production: Normal Speech Rate: Normal Speech Articulation: Normal Thought Content: Appropriate Danger to Self/Suicidal Ideati: None Danger to Others: None Consciousness: Alert Orientation: Person, Place, Date, Situation Estimate Intellectual Function: Average Basis for IQ estimate: Awareness current events, Word use/vocabulary, Educational history Attention/Concentration & Cogn: Impaired Insight: Limited Judgement: Limited Result Diagram: 08/14/1691708/14/16917 Mental Health Plan He is a 31year-old white male, who has been struggling with symptoms of psychosis and mood instability for the past 10 years. He is medication noncompliant and tends to use recreational drugs. Since release he has not been taking his medications. He is currently showing multiple symptoms of psychosis with disorganized thought, flight of ideas, perseveration and extremely poor judgment and insight. Current symptoms: I have met with the above patient and he continues to have significant symptoms of psychosis. His main issue is schizophrenia and co- occurring issues are medication noncompliance and significant substance abuse. The condition is chronic and has been present for the past 10 years (The patient meets diagnostic features of paranoid schizophrenia, polysubstance use and antisocial personality disorder). At present it is of a moderate intensity manifesting with escalating to the point of throwing a glass jar, smashing items on the floor, threatening employees, and causing property damage on the unit to the tune of $3-$4000 by destroying one of the rooms. A behavioral Code Mccarthy had to be called and he required seclusion and injections of Haldol, Ativan and Benadryl to maintain safety. All the above symptoms and behaviors are made worse by not taking his medications, poor sleep, interpersonal relationship conflicts and ongoing substance abuse. He continues to present with little insight into his mental illness or need for medications. I believe a revocation of his 90 day LRO is necessary given this lack of insight and severity of impairment. We have rescheduled court until this next Sunday. Over the past 48 hours Emery has continued to demonstrate the ability to interact in a calm and socially appropriate manner. He has required less redirection from staff as he is starting to self manage. [place] AXIS I 1. Schizoaffective disorder, bipolar type. 2. Polysubstance use disorder. AXIS II Antisocial personality features. AXIS III None. AXIS IV Stressors are noted for noncompliance with medications, chronic mental health issues, chronic substance abuse issues. AXIS V Global assessment of functioning = 40. Medications Medications to address General Physical Health Depakote 1500 mg ER q.h.s., Risperdal 4 mg q.h.s., Seroquel 100 mg q.4 hours p.r.n. p.o. for agitation, Ativan 2 mg q.4 hours p.o. or IM for agitation or anxiety, Hydroxyzine 50mg po q4hr PRN anxiety/agitation/insomnia Haldol 10 mg p.o. or IM q.4 hours for agitation, Benadryl 50 mg p.o. or IM q.4 hours for EPS. Treatments 1. Continue all medications as noted above. 2. Pseudoephedrine and dextromethorphan for coryzal symptoms 3. Patient encouraged to participate in group and milieu therapy. 4. Treatment team to meet with patient on a daily basis 5. Patient scheduled for court in the a.m., I am requesting a 90 day revocation. 6. No special precautions indicated at this time. 7. CBC, CMP, Valproic acid level in am. 8. Court date moved to this coming Sunday Ritchie Kerns MD Aug 18, 2016 13:07
--- NOTE | 2016-08-18 14:33 | NUR ---
Nursing Note Days Pt has been up socializing with staff and peers most of morning. Pt overly energetic, restless and continues making inappropriate comments to female staff . Pt compliant with meds and took PRN Motrin for pain. Pt has been cooperative and no anger outbursts noted on shift. Pt currently sleeping in room. Q15 min safety checks done per protocol, [facility] sleep, safety, behavior
[2016-08-18] MEDS: LORazepam 1 mg Tablet PO PRN (16:51)
--- NOTE | 2016-08-18 17:00 | NUR ---
Case Management/Counselor: S: "What are we doing here people?" O: Met with patient and psychiatrist. Patient slept 7.5 hours last night per staff. Patient denies S/I and H/I. He also denies auditory and visual hallucinations. He did not rate depression and anxiety. This card writer hand faxed PACT Team screening application A: Patient is cooperative, improving, euthymic, limited insight, limited judgment. P: Follow care plan, coordinate out-patient providers.
--- NOTE | 2016-08-18 21:12 | NUR ---
Observations 0900 to 2130 Pt appears to be labile, inappropriate at times, preoccupied and poor boundaries. Pt speech and eye contact was good. Pt was social with staff and select peers when approached. Pt attended group and unit activities. Pt listened to music and paced in the hallway. Pt to a shower and attended to ADL's. Pt appears to be internally preoccupied. Pt maintained behavior throughout the shift for the most part. Pt needs redirection and talked to about boundaries. Pt attended meals in the D.R. and ate 100% of breakfast, 100% of lunch and 100% of dinner. Pt ate snack. Pt had a couple of visitors and it appeared to go well. Pt was observed every 15 minutes throughout the shift as ordered.
[2016-08-18] MEDS: Divalproex (QD) 500 mg ER24 Tablet PO SCH (21:30)
[2016-08-18] MEDS: risperiDONE 2 mg Tablet PO SCH (21:30)
--- NOTE | 2016-08-18 21:45 | NUR ---
Nurses Note Evening Patient has maintained behavioral control this shift. He enjoyed a visit from his mother and sister which improved his mood. He had a period earlier in the shift requiring an Ativan 2mg at 1651 for increasing disorganization and hyper active behaviors with calming effect. Patient continues to lack insight into illness and management of same. Will maintain q 15min.checks for safety,encourage continued medication compliance. Addendum: 08/18/16 at 2201 by DEMETRIA HURTADO RN Amended: Links added.
--- NOTE | 2016-08-19 05:19 | NUR ---
nursing, nights, 11-7 s/o- has appeared to sleep after 2129 during q 15 minute assessments. a- no apparent distress. p- monitor behavior/emotional state, quality, times and amount of sleep, use and effect of medication. nalini
--- NOTE | 2016-08-19 05:25 | NUR ---
Pt had visit from mother and sister. Was up interacting on unit for a while and was excited that he had signed PACT team paperwork to help get DC planning going. Asleep at 2130. Pt observed every 15 minutes as ordered.
--- NOTE | 2016-08-19 12:37 | PCM.PNPSY ---
Subjective Date of Service Aug 19, 2016 Subjective I spent 20 minutes both reviewing his treatment plan and providing supportive and educational psychotherapy. I spent more than 50% of the time counseling the patient. Emery reports that he is feeling calm and is requesting discharge. He is showing improved insight and judgment. His impulse control relative to normal social situations continues to be poor but markedly improved from his previous hospitalizations. The Staff reports that he has been appropriate on the unit. Today he is participating well in one-to-one unit and group activities. He slept 7.75 hours. He is hoping to discharge to a least restrictive [facility] rather than [facility]. He denies medication side effects. Mental Status Exam Appearance: Neat/well groomed Attitude: Pleasant, Cooperative Behavior: No unusual behavior Affect: Well Modulated/Appropriate Mood: Euthymic Thought Process/Associations: Logical/Sequential, Goal Directed Speech Production: Normal Speech Rate: Normal Speech Articulation: Normal Thought Content: Appropriate Danger to Self/Suicidal Ideati: None Danger to Others: None Consciousness: Alert Orientation: Person, Place, Date, Situation Estimate Intellectual Function: Average Basis for IQ estimate: Awareness current events, Word use/vocabulary, Educational history Attention/Concentration & Cogn: Impaired Insight: Limited Judgement: Limited Result Diagram: 08/14/1691708/14/16917 Mental Health Plan He is a 31year-old white male, who has been struggling with symptoms of psychosis and mood instability for the past 10 years. He is medication noncompliant and tends to use recreational drugs. Since release he has not been taking his medications. He is currently showing multiple symptoms of psychosis with disorganized thought, flight of ideas, perseveration and extremely poor judgment and insight. Current symptoms: I have met with the above patient and he continues to have significant symptoms of psychosis. His main issue is schizophrenia and co- occurring issues are medication noncompliance and significant substance abuse. The condition is chronic and has been present for the past 10 years (The patient meets diagnostic features of paranoid schizophrenia, polysubstance use and antisocial personality disorder). At present it is of a moderate intensity manifesting with escalating to the point of throwing a glass jar, smashing items on the floor, threatening employees, and causing property damage on the unit to the tune of $3-$4000 by destroying one of the rooms. A behavioral Code Fabio had to be called and he required seclusion and injections of Haldol, Ativan and Benadryl to maintain safety. All the above symptoms and behaviors are made worse by not taking his medications, poor sleep, interpersonal relationship conflicts and ongoing substance abuse. He continues to present with little insight into his mental illness or need for medications. I believe a revocation of his 90 day LRO is necessary given this lack of insight and severity of impairment. We have rescheduled court until this next Sunday. Over the past 72 hours Emery has continued to demonstrate the ability to interact in a calm and socially appropriate manner. He has required less redirection from staff as he is starting to self manage. [place] AXIS I 1. Schizoaffective disorder, bipolar type. 2. Polysubstance use disorder. AXIS II Antisocial personality features. AXIS III None. AXIS IV Stressors are noted for noncompliance with medications, chronic mental health issues, chronic substance abuse issues. AXIS V Global assessment of functioning = 40. Medications Medications to address General Physical Health Depakote 1500 mg ER q.h.s., Risperdal 4 mg q.h.s., Seroquel 100 mg q.4 hours p.r.n. p.o. for agitation, Ativan 2 mg q.4 hours p.o. or IM for agitation or anxiety, Hydroxyzine 50mg po q4hr PRN anxiety/agitation/insomnia Haldol 10 mg p.o. or IM q.4 hours for agitation, Benadryl 50 mg p.o. or IM q.4 hours for EPS. Treatments 1. Continue all medications as noted above. 2. Pseudoephedrine and dextromethorphan for coryzal symptoms 3. Patient encouraged to participate in group and milieu therapy. 4. Treatment team to meet with patient on a daily basis 5. Patient scheduled for court in the a.m., I am requesting a 90 day revocation. 6. No special precautions indicated at this time. 7. CBC, CMP, Valproic acid level in am. 8. Court date moved to this coming Sunday Ritchie Kerns MD Aug 19, 2016 12:37
--- NOTE | 2016-08-19 17:27 | NUR ---
Nursing Dayshift: S: "I was grumpy this morning. I was tired and I got a good nap." O: Patient's mood has improved through the shift. A little irritable this AM when changing rooms to accommodate a new patient. Patient's " mom" visited this afternoon. Noted to be a very good visit. Has been eating well at meals. Approachable. Denies anxiety, depression, harmful thoughts, and hallucinations. A: Mood improved. Brighter. Some irritability. P: CPOC. Monitor mood and behavior. Addendum: 08/19/16 at 1734 by SHADY MOORE RN Amended: Links added.
--- NOTE | 2016-08-19 18:20 | NUR ---
Assistant Account Executive./ c.m. S.:"What did I do? I did nothing!.. Come here, I will give you a hug..." O.: met with pt. after lunch. He was in and out of his room. He denied SI/HI, denied AH/VH or paranoid/delusional thoughts. Pt. was intrusive in his behavior. He was aware of [facility] application and he asked writer producer to follow through with this process. "Now it is your job to get me in that program." He denied depression or anxiety at this time. He slept "ok" last night. A.: pt. is cooperative, intrusive, has poor boundaries and unpredictable in his behavior. P.: monitor behavior, provide safety in the unit, follow care plan.
--- NOTE | 2016-08-19 19:52 | NUR ---
Observations 0900 to 2130 Pt affect and mood remains the same. Pt speech and eye contact was good. Pt was social with staff and select peers when approached. Pt attended group and unit activities. Pt listened to music and paced in the hallway. Pt appears to be preoccupied and responding to internal stimuli. Pt maintained behavior throughout the shift for the most part. Pt needs redirection and talked to about boundaries. Pt attended meals in the D.R. and ate 75% of breakfast, 100% of lunch and 100% of dinner. Pt ate snack. Pt had a visitor and it appeared to go well. Pt was observed every 15 minutes throughout the shift as ordered.
[2016-08-19] MEDS: Divalproex (QD) 500 mg ER24 Tablet PO SCH (19:58)
[2016-08-19] MEDS: risperiDONE 2 mg Tablet PO SCH (19:59)
--- NOTE | 2016-08-19 21:00 | NUR ---
Nurses PRN Patient received Ativan 2mg and Seroquel 100mg for anxiety and hypomanic behaviors,night nurse to assess response.
[2016-08-19] MEDS: LORazepam 1 mg Tablet PO PRN (21:08)
--- NOTE | 2016-08-20 05:40 | NUR ---
nursing, nights, 11-7 s/o- has appeared to sleep after 2214 during q 15 minute assessments. a- no apparent distress. p- monitor behavior/emotional state, quality, times and amount of sleep, use and effect of medication. nalini
--- NOTE | 2016-08-20 06:13 | NUR ---
Pt out on unit when awake walking halls, playing Wii, watching TV and interacting with staff and peers. Still inappropriate at times but more easily redirected. Asleep at 2215. Pt observed every 15 minutes as ordered.
[2016-08-20 11:30] VITALS: BP 121/78; PULSE 104; RESP 18
--- NOTE | 2016-08-20 11:50 | PCM.PNPSY ---
Subjective Date of Service Aug 20, 2016 Subjective I spent 20 minutes both reviewing his treatment plan and providing supportive and educational psychotherapy. Emery reports that he is feeling calm and is requesting discharge. He is showing improved insight and judgment. His impulse control relative to normal social situations continues to be poor but markedly improved from his previous hospitalizations. The Staff reports that he has been anxious and hypomanic on the unit over the past 24 hours. He slept 8 hours. He is hoping to discharge to a least restrictive [facility] rather than [facility]. He denies medication side effects. Mental Status Exam Appearance: Neat/well groomed Attitude: Pleasant, Cooperative Behavior: No unusual behavior Affect: Well Modulated/Appropriate Mood: Euthymic Thought Process/Associations: Logical/Sequential, Goal Directed Speech Production: Normal Speech Rate: Normal Speech Articulation: Normal Thought Content: Appropriate Danger to Self/Suicidal Ideati: None Danger to Others: None Consciousness: Alert Orientation: Person, Place, Date, Situation Estimate Intellectual Function: Average Basis for IQ estimate: Awareness current events, Word use/vocabulary, Educational history Attention/Concentration & Cogn: Impaired Insight: Limited Judgement: Limited Result Diagram: 08/14/1618 08/14/16917 Mental Health Plan He is a 31year-old white male, who has been struggling with symptoms of psychosis and mood instability for the past 10 years. He is medication noncompliant and tends to use recreational drugs. Since release he has not been taking his medications. He is currently showing multiple symptoms of psychosis with disorganized thought, flight of ideas, perseveration and extremely poor judgment and insight. Current symptoms: I have met with the above patient and he continues to have significant symptoms of psychosis. His main issue is schizophrenia and co- occurring issues are medication noncompliance and significant substance abuse. The condition is chronic and has been present for the past 10 years (The patient meets diagnostic features of paranoid schizophrenia, polysubstance use and antisocial personality disorder). At present it is of a moderate intensity manifesting with escalating to the point of throwing a glass jar, smashing items on the floor, threatening employees, and causing property damage on the unit to the tune of $3-$4000 by destroying one of the rooms. A behavioral Code Mccarthy had to be called and he required seclusion and injections of Haldol, Ativan and Benadryl to maintain safety. All the above symptoms and behaviors are made worse by not taking his medications, poor sleep, interpersonal relationship conflicts and ongoing substance abuse. He continues to present with little insight into his mental illness or need for medications. I believe a revocation of his 90 day LRO is necessary given this lack of insight and severity of impairment. We have rescheduled court until this next Sunday. Emery had shown marked improvement for the past 3 days, however over the last 24 hours staff are noticing increased hypomanic behaviors and a lot of anxiety. This may be related to the holiday weekend and has to tension. [place] AXIS I 1. Schizoaffective disorder, bipolar type. 2. Polysubstance use disorder. AXIS II Antisocial personality features. AXIS III None. AXIS IV Stressors are noted for noncompliance with medications, chronic mental health issues, chronic substance abuse issues. AXIS V Global assessment of functioning = 40. Medications Medications to address General Physical Health Depakote 1500 mg ER q.h.s., Risperdal 4 mg q.h.s., Seroquel 100 mg q.4 hours p.r.n. p.o. for agitation, Ativan 2 mg q.4 hours p.o. or IM for agitation or anxiety, Hydroxyzine 50mg po q4hr PRN anxiety/agitation/insomnia Haldol 10 mg p.o. or IM q.4 hours for agitation, Benadryl 50 mg p.o. or IM q.4 hours for EPS. Treatments 1. Continue all medications as noted above. 2. Pseudoephedrine and dextromethorphan for coryzal symptoms 3. Patient encouraged to participate in group and milieu therapy. 4. Treatment team to meet with patient on a daily basis 5. Patient scheduled for court in the a.m., I am requesting a 90 day revocation. 6. No special precautions indicated at this time. 7. CBC, CMP, Valproic acid level in am. 8. Court date moved to this coming Sunday Ritchie Kerns MD Aug 20, 2016 11:50
--- NOTE | 2016-08-20 14:48 | NUR ---
Digital Forensic Analyst./ c.m. S./O.: came to pt.'s room a few times. He was sleeping. He wasn't available for a conversation. A.: pt. is isolative, quiet, sleeping. P.: monitor behavior, follow care plan.
--- NOTE | 2016-08-20 16:23 | NUR ---
Nursing Dayshift: S: "That was a good lunch. I really like those little cakes." O: Patient has been relaxing in his room much of the shift noted to be snoring at times. Has been up for meals with a good appetite. Pleasant on approach. Good eye contact. Denies anxiety, depression, harmful thoughts, and hallucinations. Sister and cousin here visiting at present. A: Med compliant. Calm. P: CPOC. Monitor mood and behavior. Addendum: 08/20/16 at 1634 by SHADY MOORE RN Amended: Links added.
--- NOTE | 2016-08-20 18:29 | NUR ---
Observations 0700 to 1900 Pt affect and mood remains the same. Pt speech and eye contact was good. Pt was social with staff and select peers when approached. Pt maintained behavior throughout the shift for the most part. Pt needs redirection and talked to about boundaries. Pt attended meals in the D.R. and ate 100% of breakfast, 100% of lunch and 100% of dinner. Pt ate snack. Pt had visitors and it appeared to go well. Pt was observed every 15 minutes throughout the shift as ordered.
[2016-08-20] MEDS: risperiDONE 2 mg Tablet PO SCH (20:49)
[2016-08-20] MEDS: Divalproex (QD) 500 mg ER24 Tablet PO SCH (20:49)
--- NOTE | 2016-08-20 22:26 | NUR ---
NURSING NOTE [id number] Orientation= x3 Mood= "good, now can I get a kiss from you, nurse?" *laughs* Affect= pleasant, flirtatious, irritable at times Behavior= social w/peers, peers into NS window often and makes frequent efforts to engage w/staff, visible in the common area for most of the evening, his family visited, med compliant Thought processes= needed redirection several times from this repairer typewriter to abstain from making provocative and flirtatious statements to this repairer typewriter, became irritable when other staff mechanical engineer discussed w/him the actions that lead to his readmission to this unit, denies SI/HI/AH/VH, however this repairer typewriter heard him conversing w/himself in his room this evening PRNs: PRN Vistaril 50 mg @ 23:40 for anxiety & insomnia Addendum: 08/21/16 at 0611 by DIEUDONNE GUARDADO RN As of 599, pt. appears to have slept 7.5 hrs. He got up once in the night at 23:40 and received PRN Vistaril 50 mg and appeared to fall asleep shortly after.
[2016-08-20] MEDS: hydrOXYzine Pamoate 25 mg Capsule PO PRN (23:38)
--- NOTE | 2016-08-21 02:08 | NUR ---
OBSERVATIONS 1900 TO 0700 Pt affect remains the same. Pt was social and cooperative, inappropriate at times but easily redirected. Pt watched TV with peers and participated in wrap-up group. Pt stated he had a good visit with family and that today was good but he did not accomplish his goal of showering. Maintained Q15 safety checks as directed. Addendum: 08/21/16 at 0432 by PEARL ESCOBEDO [facility] Pt asleep at 2145, woke once at 2345 asking for Ambien, asleep again 15min later and slept through the night.
[2016-08-21 12:21] VITALS: BP 113/72; PULSE 85; RESP 17
[2016-08-21] MEDS: LORazepam 1 mg Tablet PO PRN (15:00)
[2016-08-21] MEDS: hydrOXYzine Pamoate 25 mg Capsule PO PRN (15:00)
--- NOTE | 2016-08-21 16:52 | NUR ---
[place]; Day shift: S: "I want a B52. Overheard talking on phone: "They're helping me get a solid place to live. third time around. There are cute nurses here." O: Emery has been restless around the open unit, with multiple requests and attention seeking behavior. Making inappropriate sexual comments to MHS's and nurses at times. At 1430, he became upset when his comments were not accepted and slammed Room 229 door and yelled loudly. PRN med: Accepted Ativan 2 mg and Hydroxyzine 50 mg po at 1500. did not rate anxiety. At 1545, pt stated that the med had no effect on his anxiety. However, he apologized for earlier inappropriate statements to sign writer hand and appeared more calm. At 1700 was able to come to DR and watch TV for 15 min without intrusive, insistent requests. In call from pt's biological mom she stated to sign writer hand that Emery is "expressing things to his brother and her that are very deep stuff. He is pushing against a wall, challenging what I am saying.'You think you are so great' But nothing has changed. A: Labile. Behavior unpredictable. Needy. ? Unrealistic in ideas of what housing can be arranged for him? P: Continue to assess effect of current medication regimen. Addendum: 08/21/16 at 1807 by MARY DELGADO RN Amended: Links added.
--- NOTE | 2016-08-21 17:04 | NUR ---
Academic Services Professional./ c.m. S.:"I'm nervous because I'm going to court tomorrow." O.: met with pt. and MD together. Pt. said that he was "doing alright." He slept "alright, maybe too much." He denied SI/HI, denied AH/VH, denied paranoid/delusional thoughts, denied depression or anxiety. He asked if we got a respond from [facility]. He said that he "would actually prefer to go to [facility] in [facility]" because it is closer to his family. He also wanted to have a session with dietitian. He was in and out of his room. He was talking to selective peers. A.: pt. is cooperative, unpredictable, has poor boundaries. P.: monitor behavior, monitor for safety and meds intake, court tomorrow for revocation of 90 LRO; follow care plan.
--- NOTE | 2016-08-21 17:21 | NUR ---
Observations [id number] Pt was asleep upon start of shift. Pt presents as needy and attention seeking. He has a difficult time with boundaries with staff and other peers, making sexually inappropriate comments and needing redirection. Pt ate 100% of meals, and spent the majority of the day in the dining room with peers or pacing the halls. Pt also used the phone on a few occasions, talking with family. Pt went outside for group. Pt become upset in the evening regarding his medication, yelling and slamming his door. Pt appears to become agitated when told no, or when he can't do things based on his schedule. Pt was observed every 15 minutes of shift as directed.
--- NOTE | 2016-08-21 18:05 | PCM.PNPSY ---
Subjective Date of Service Aug 21, 2016 Subjective The patient reports that he is "doing all right" and indicates that many of his problems come from his behavior being "too sexual." He reports that he would like to have a dietitian consult due to weight gain. If at all possible he would prefer to stay in the [facility] and is willing to follow-up with the PACT team. No side effect complaints. Sleep: "Too much" Appetite: "Too well" Suicidal and homicidal ideation: Denies Auditory hallucinations/Visual hallucinations: Denies Other Psychotic Symptoms: Denies but does appear to have significant impulsivity Anxiety: 0/10 Depression: 0/10 Mental Status Exam Vital Signs Vital Signs Date Time Temp Pulse Resp B/P Pulse Ox O2 Delivery O2 Flow Rate FiO2 08/21/16 12:21 36.1 85 17 113/72 Appearance: Neat/well groomed Attitude: Pleasant, Cooperative Behavior: No unusual behavior, Other (some psychomotor activation and "clowning ") Affect: Well Modulated/Appropriate Mood: Euthymic Thought Process/Associations: Logical/Sequential, Goal Directed Speech Production: Normal Speech Rate: Normal Speech Articulation: Normal Thought Content: Appropriate Danger to Self/Suicidal Ideati: None Danger to Others: None Hallucinations: Auditory (Denies), Visual (Denies) Consciousness: Alert Orientation: Person, Place, Date, Situation Estimate Intellectual Function: Average Basis for IQ estimate: Awareness current events, Word use/vocabulary, Educational history Attention/Concentration & Cogn: Impaired Insight: Limited Judgement: Limited Mental Health Plan The patient is a 31-year-old male with a history of schizoaffective disorder with discharge one week prior to admission who was admitted under a revocation of a LR 90, after presenting to the emergency department at [facility] with altered mental status. [facility] suggested that the patient has not taken medications since his discharge. The patient was initially quite impulsive and tore a door off its hinges. The patient has gradually calmed over the course of his hospital stay and is more appropriate and interacts appropriately with peers and staff. It is unclear what community resources remain available to him at this time due to his ongoing impulsivity and property damage. The patient would prefer to stay in the [facility] if possible. [place] AXIS I 1. Schizoaffective disorder, bipolar type. 2. Polysubstance use disorder. AXIS II Antisocial personality features. AXIS III None. AXIS IV Stressors are noted for noncompliance with medications, chronic mental health issues, chronic substance abuse issues. AXIS V Global assessment of functioning = 40. Medications Depakote 1500 mg ER q.h.s., Risperdal 4 mg q.h.s., Seroquel 100 mg q.4 hours p.r.n. p.o. for agitation, Lorazepam 2 mg q.4 hours p.o. or IM for agitation or anxiety, Hydroxyzine 50mg po q4hr PRN anxiety/agitation/insomnia Haldol 10 mg p.o. or IM q.4 hours for agitation, Benadryl 50 mg p.o. or IM q.4 hours for EPS. Treatments 1. Continue all medications as noted above. 2. Patient encouraged to participate in group and milieu therapy. 4. Treatment team to meet with patient on a daily basis 5. Patient scheduled for court in the a.m., with 90 day revocation requested due to aggressive behavior and difficulty in placement. 6. No special precautions indicated at this time. 7. [facility]CT team involvement has been requested but not approved. 8. The patient is encouraged to abstain from the use of drugs or alcohol. Charbel Sahu MD Aug 21, 2016 18:05
[2016-08-21] MEDS: risperiDONE 2 mg Tablet PO SCH (19:54)
[2016-08-21] MEDS: Divalproex (QD) 500 mg ER24 Tablet PO SCH (19:54)
--- NOTE | 2016-08-22 02:27 | NUR ---
Observations 1900 to 0700 Pt was in his room for most of the evening. Pt did have visitors last night. Pt had some snacks before going back to his room. Pt affect was flat. Pt first appeared asleep at 20:45 and was observed every 15 minutes through the night as directed.
--- NOTE | 2016-08-22 05:20 | NUR ---
Noc shift Pt appeared to be asleep throughout most of the night with no apparent distress. Monitored Q15min checks
[2016-08-22 10:35] VITALS: BP 129/75; PULSE 110; RESP 17
--- NOTE | 2016-08-22 15:48 | NUR ---
RD education Pt requesting wt loss counseling/tips to help him lose wt. He reported that he thinks his medication is making him hungry all the time. Discussed foods to eat that would help him to feel blackman for longer and possibly eating smaller more frequent meals. Discussed importance of staying hydrated and drinking water or other calorie-free drinks before a meal to help curve his appetite. Pt was interested in different diet plans provided here at hospital (vegetarian, low carb etc). Educated pt on the differences. Pt decided he wanted to stay on the general diet plan. Provided pt with 1 day meal plan for 2200kcal/day and handout for wt loss tips.
--- NOTE | 2016-08-22 16:06 | PCM.PNPSY ---
Subjective Date of Service Aug 22, 2016 Subjective The patient reports that he is "doing good" and indicates that he was happy about his court continuance. He would prefer to stay in the [facility] and is willing to follow-up with the PACT team. The patient is still reporting nasal congestion. Patient has yet to use pseudoephedrine. No side effect complaints. Sleep: 9 hours, "tossing and turning" Appetite: "Good" Suicidal and homicidal ideation: Denies Auditory hallucinations/Visual hallucinations: Denies Other Psychotic Symptoms: Denies but does appear to have some impulsivity, eating for a screening today. Anxiety: "Good" Depression: "Happy" Mental Status Exam Vital Signs Vital Signs Date Time Temp Pulse Resp B/P Pulse Ox O2 Delivery O2 Flow Rate FiO2 08/22/16 10:35 36.4 110 17 129/75 Appearance: Neat/well groomed Attitude: Pleasant, Cooperative Behavior: No unusual behavior Affect: Well Modulated/Appropriate Mood: Euthymic Thought Process/Associations: Logical/Sequential, Goal Directed Speech Production: Normal Speech Rate: Normal Speech Articulation: Normal Thought Content: Appropriate Danger to Self/Suicidal Ideati: None Danger to Others: None Hallucinations: Auditory (Denies), Visual (Denies) Consciousness: Alert Orientation: Person, Place, Date, Situation Estimate Intellectual Function: Average Basis for IQ estimate: Awareness current events, Word use/vocabulary, Educational history Attention/Concentration & Cogn: Impaired Insight: Limited Judgement: Limited Mental Health Plan The patient is a 31-year-old male with a history of schizoaffective disorder with discharge one week prior to admission who was admitted under a revocation of a LR 90, after presenting to the emergency department at [facility] with altered mental status. [facility] suggested that the patient has not taken medications since his discharge. On the mental health unit, the patient was initially quite impulsive and tore a door off its hinges. The patient has gradually calmed over the course of his hospital stay and is more appropriate and interacts appropriately with peers and staff. It is unclear what community resources remain available to him at this time due to his ongoing impulsivity and property damage. PACT team has yet to definitively state whether they can follow the patient. The patient would prefer to stay in the [facility] if possible. [place] AXIS I 1. Schizoaffective disorder, bipolar type. 2. Polysubstance use disorder. AXIS II Antisocial personality features. AXIS III None. AXIS IV Stressors are noted for noncompliance with medications, chronic mental health issues, chronic substance abuse issues. AXIS V Global assessment of functioning = 40. Medications Depakote 1500 mg ER q.h.s., Risperdal 4 mg q.h.s., Seroquel 100 mg q.4 hours p.r.n. p.o. for agitation, Lorazepam 2 mg q.4 hours p.o. or IM for agitation or anxiety, Hydroxyzine 50mg po q4hr PRN anxiety/agitation/insomnia Haldol 10 mg p.o. or IM q.4 hours for agitation, Benadryl 50 mg p.o. or IM q.4 hours for EPS. Treatments 1. Continue all medications as noted above. 2. Patient encouraged to participate in group and milieu therapy. 3. The patient was encouraged to use pseudoephedrine for nasal congestion. If this persists, the patient may benefit from cetirizine. 4. Treatment team to meet with patient on a daily basis 5. The patient's court hearing was moved to Sunday, with 90 day revocation requested due to aggressive behavior and difficulty in placement. 6. No special precautions indicated at this time. 7. PACT team involvement has been requested but not approved. 8. The patient is encouraged to abstain from the use of drugs or alcohol. Charbel Sahu MD Aug 22, 2016 16:06
--- NOTE | 2016-08-22 17:30 | NUR ---
Nursing: Day shift: S: I am not lying low. I wanted to walk down the bardales with M___(staff). O: Emery was more subdued in his behavior today than yesterday. Rested on bed between meals and groups. No outbursts or observable signs of agitation. No requests for PRN anxiety medication. P: Continue to support Emery as plans for placement are being arranged.
--- NOTE | 2016-08-22 17:50 | NUR ---
Observations [id number] Pt was asleep upon start of shift. Pt stated that he did not sleep well last night, and slept after breakfast. He presents with a large appetite, stating that his medication is making him very hungry. Pt ate 100% of meals. He continues to be flirtatious with staff, having to be redirected and reminded and personal boundaries. Pt did participate in group, and went outside. His mood appeared more calm then previous days, with less attention seeking behaviors. He was seen walking the halls with peers throughout the day. Pt was observed every 15 minutes of shift as directed.
[2016-08-22] MEDS: LORazepam 1 mg Tablet PO PRN (19:31)
[2016-08-22] MEDS: risperiDONE 2 mg Tablet PO SCH (21:12)
[2016-08-22] MEDS: Divalproex (QD) 500 mg ER24 Tablet PO SCH (21:12)
--- NOTE | 2016-08-22 23:13 | NUR ---
Nursing Note [id number] Pt in milieu upon arrival to unit. Pt engaging in conversation with staff and peers. Pt appeared to be more calm this marilin and had a decrease in restlessness and inappropriate sexual comments. Pt requested Ativan at 1930 for anxiety. Pt attended snack and marilin group and went to bed shortly after with sleep time noted 2144. Pt controlled behavior and no anger outbursts noted. Complaint with meds. Q15 min safety checks done per protocol, no distress noted, [facility] sleep, safety, behavior Addendum: 08/23/16 at 0450 by ELISA GAYLE RN Noc shift pt slept well through the night, total of 7 hrs of sleep with no distress. Monitored Q15 min checks completed. pt woke up at 0430 and went to [facility] to eat a snack, but returned back to his room at 0450.
--- NOTE | 2016-08-23 00:56 | NUR ---
Observations 1900 to 0700 Pt was out in the DR and more social than the previous nights. Pt watched the movie and walked around. Pt had some snacks before going back to his room. Pt affect was brighter. Pt first appeared asleep at 21:45 and was observed every 15 minutes through the night as directed.
--- NOTE | 2016-08-23 12:59 | NUR ---
Nursing Dayshift: S: "Really high. Both anxiety and depression. I want to hurt you too! No, just kidding!" O: Patient joking around during interaction. Slept in and ate a late breakfast and a double serving of lunch. Friendly on approach. Social with peers. Good eye contact. Denies anxiety, depression, harmful thoughts, and hallucinations. A: Jovial. Interactive. P: CPOC. Monitor mood and behavior. Addendum: 08/23/16 at 1411 by SHADY MOORE RN Amended: Links added.
--- NOTE | 2016-08-23 16:31 | PCM.PNPSY ---
Subjective Date of Service Aug 23, 2016 Subjective The patient reports that he is "doing good" and indicates that he is willing to have outpatient services here or in [place]. He would prefer to stay in the [place] area and is willing to follow-up with the PACT team. The patient took pseudoephedrine today for congestion and is unsure whether it is helping. No side effect complaints. Sleep: 7 hours, "not as good" Appetite: "Good" Suicidal and homicidal ideation: Denies Auditory hallucinations/Visual hallucinations: Denies Other Psychotic Symptoms: Denies. Anxiety: 0/10 Depression: 0/10 Mental Status Exam Appearance: Neat/well groomed Attitude: Pleasant, Cooperative Behavior: No unusual behavior Affect: Well Modulated/Appropriate Mood: Euthymic Thought Process/Associations: Logical/Sequential, Goal Directed Speech Production: Normal Speech Rate: Normal Speech Articulation: Normal Thought Content: Appropriate Danger to Self/Suicidal Ideati: None Danger to Others: None Hallucinations: Auditory (Denies), Visual (Denies) Consciousness: Alert Orientation: Person, Place, Date, Situation Estimate Intellectual Function: Average Basis for IQ estimate: Awareness current events, Word use/vocabulary, Educational history Attention/Concentration & Cogn: Impaired Insight: Limited Judgement: Limited Mental Health Plan The patient is a 31-year-old male with a history of schizoaffective disorder with discharge one week prior to admission who was admitted under a revocation of a LR 90, after presenting to the emergency department at [facility] with altered mental status. [facility] suggested that the patient has not taken medications since his discharge. On the mental health unit, the patient was initially quite impulsive and tore a door off its hinges. The patient has gradually calmed over the course of his hospital stay and is more appropriate and interacts appropriately with peers and staff. It is unclear what community resources remain available to him at this time due to his ongoing impulsivity and property damage. PACT team has yet to definitively state whether they can follow the patient. The patient would prefer to stay in the [place] area if possible. [place] AXIS I 1. Schizoaffective disorder, bipolar type. 2. Polysubstance use disorder. AXIS II Antisocial personality features. AXIS III None. AXIS IV Stressors are noted for noncompliance with medications, chronic mental health issues, chronic substance abuse issues. AXIS V Global assessment of functioning = 40. Medications Depakote 1500 mg ER q.h.s., Risperdal 4 mg q.h.s., Seroquel 100 mg q.4 hours p.r.n. p.o. for agitation, Lorazepam 2 mg q.4 hours p.o. or IM for agitation or anxiety, Hydroxyzine 50mg po q4hr PRN anxiety/agitation/insomnia Haldol 10 mg p.o. or IM q.4 hours for agitation, Benadryl 50 mg p.o. or IM q.4 hours for EPS. Treatments 1. Continue all medications as noted above. 2. Patient encouraged to participate in group and milieu therapy. 3. The patient was encouraged to use pseudoephedrine for nasal congestion. If this persists, the patient may benefit from cetirizine. 4. Treatment team to meet with patient on a daily basis 5. The patient's court hearing was moved to Sunday, with 90 day revocation requested due to aggressive behavior and difficulty in placement. 6. No special precautions indicated at this time. 7. PACT team involvement has been requested but not approved. 8. The patient is encouraged to abstain from the use of drugs or alcohol. 9. CBC, CMP, Depakote level in a.m. Charbel Sahu MD Aug 23, 2016 16:31
[2016-08-23] MEDS: diphenhydrAMINE 50 mg Capsule PO PRN (16:48)
[2016-08-23] MEDS: LORazepam 1 mg Tablet PO PRN (16:49)
--- NOTE | 2016-08-23 16:50 | NUR ---
Nurses Note PRN Patient requested and received Ativan 1mg and Benadryl 50mg for increased restlessness and c/o cold symptoms,will assess response.
[2016-08-23 17:36] VITALS: BP 132/74; PULSE 65; RESP 16
--- NOTE | 2016-08-23 17:45 | NUR ---
[facility] Day Shift Pt maintained behavioral control throughout the shift. Pt affect appears mostly euthymic, somewhat flat in the AM. Pt spends most of the shift resting/sleeping in his room, pacing the unit, interacting with peers, and participating in unit activities. Pt is mostly appropriate with staff and peers, but is occasionally inappropriate during interactions with female staff and peers. Pt is redirectable throughout the shift. Pt attended community meeting in the AM. Pt participated in group activities throughout the shift. Pt attended all meals and ate approx 100% of all meals.
[2016-08-23] MEDS: Divalproex (QD) 500 mg ER24 Tablet PO SCH (20:47)
[2016-08-23] MEDS: risperiDONE 2 mg Tablet PO SCH (20:47)
--- NOTE | 2016-08-23 23:07 | NUR ---
Nursing Note [id number] Pt in bed sleeping upon arrival to unit. Pt appeared to be sleep until I went into room to give HS meds. Pt stated "what time is it". Pt appeared sleep and disoriented. Pt quickly woke up took HS med and went to [facility] for marilin snack and group. No inappropriate language or talk noted on shift and Pt appeared calm, cooperative with controlled behaviors. Q15 min safety checks per protocol, no distress noted and noted sleep time 2145. [facility] sleep, safety, behavior Addendum: 08/24/16 at 0446 by FARHAN DE LA PAZ RN Sleep- Pt has had 8 plus hr of uninterrupted sleep, no distress noted
--- NOTE | 2016-08-24 05:41 | NUR ---
Pt in room much of shift. Asleep at 2145. Pt observed every 15 minutes as ordered.
[2016-08-24 09:29] LABS: BASOPHILS % (AUTO) 0.2 % (0-3); MONOCYTES % (AUTO) 9.2 % (4-12); Mean Corpuscular Hemoglobin 28.8 pg (27.0-35.0); Mean Corpuscular Volume 86.3 fL (81-100); NEUTROPHILS % (AUTO) 62.1 % (40-74); Platelet Count 188 bil/L (150-400)
[2016-08-24 11:35] VITALS: BP 107/52; PULSE 85; RESP 18
--- NOTE | 2016-08-24 12:16 | NUR ---
Nursing Dayshift: S: "Julius, can I get one of those red pills? The one for allergies?" O: Sudafed 30 mg given at 1059 this AM for c/o congestion. Will monitor for effectiveness. Has been ambulating the bardales more today than yesterday. Making faces at the staff in the nurses station when passing by with laughing and grinning. Eating well at meals and requesting snacks. Pleasant on approach. Joking with staff. Occasional inappropriate remark and is redirectable. Denies anxiety, depression, harmful thoughts, and hallucinations. A: Cooperative. Approachable. P: CPOC. Monitor mood and behavior. Addendum: 08/24/16 at 1255 by SHADY MOORE RN Amended: Links added.
[2016-08-24] MEDS: LORazepam 1 mg Tablet PO PRN ×2 (15:27→20:48)
[2016-08-24] MEDS: diphenhydrAMINE 50 mg Capsule PO PRN ×2 (15:27→20:49)
--- NOTE | 2016-08-24 18:20 | PCM.PNPSY ---
Subjective Date of Service Aug 24, 2016 Subjective Per staff, patient had increased anxiety last night and received lorazepam. On assessment today, the patient was unaware that he had anxiety were any additional stress last evening. He indicated that he was doing well but was frustrated somewhat with having to stay in the hospital awaiting disposition. We discussed the possibility of attending [facility] and the patient was agreeable. He was still open to being with the PACT team in the [place] or [place] area. No side effect complaints. Sleep: 7.5 hours, "okay" Appetite: "Good" Suicidal and homicidal ideation: Denies Auditory hallucinations/Visual hallucinations: Denies Other Psychotic Symptoms: Denies. Anxiety: 0/10 Depression: 0/10 Mental Status Exam Vital Signs Vital Signs Date Time Temp Pulse Resp B/P Pulse Ox O2 Delivery O2 Flow Rate FiO2 08/24/16 11:35 36.7 85 18 107/52 Appearance: Neat/well groomed Attitude: Pleasant, Cooperative Behavior: No unusual behavior Affect: Well Modulated/Appropriate Mood: Euthymic Thought Process/Associations: Logical/Sequential, Goal Directed Speech Production: Normal Speech Rate: Normal Speech Articulation: Normal Thought Content: Appropriate Danger to Self/Suicidal Ideati: None Danger to Others: None Hallucinations: Auditory (Denies), Visual (Denies) Consciousness: Alert Orientation: Person, Place, Date, Situation Estimate Intellectual Function: Average Basis for IQ estimate: Awareness current events, Word use/vocabulary, Educational history Attention/Concentration & Cogn: Impaired Insight: Limited Judgement: Limited Result Diagram: 08/24/16 0910 08/24/16 0910 Mental Health Plan The patient is a 31-year-old male with a history of schizoaffective disorder with discharge one week prior to admission who was admitted under a revocation of a LR 90, after presenting to the emergency department at [facility] with altered mental status. [facility] suggested that the patient has not taken medications since his discharge. On the mental health unit, the patient was initially quite impulsive and tore a door off its hinges. The patient has gradually calmed over the course of his hospital stay and is more appropriate and interacts appropriately with peers and staff. It is unclear what community resources remain available to him at this time due to his ongoing impulsivity and property damage. PACT team has yet to definitively state whether they can follow the patient. The patient would prefer to stay in the [facility] if possible. The patient is agreeable to having a referral sent to [facility]. Laboratory values essentially within normal limits with Depakote level 57, previous level 58. [place] AXIS I 1. Schizoaffective disorder, bipolar type. 2. Polysubstance use disorder. AXIS II Antisocial personality features. AXIS III None. AXIS IV Stressors are noted for noncompliance with medications, chronic mental health issues, chronic substance abuse issues. AXIS V Global assessment of functioning = 40. Medications Depakote 1500 mg ER q.h.s., Risperdal 4 mg q.h.s., Seroquel 100 mg q.4 hours p.r.n. p.o. for agitation, Lorazepam 2 mg q.4 hours p.o. or IM for agitation or anxiety, Hydroxyzine 50mg po q4hr PRN anxiety/agitation/insomnia Haldol 10 mg p.o. or IM q.4 hours for agitation, Benadryl 50 mg p.o. or IM q.4 hours for EPS. Treatments 1. Continue all medications as noted above. 2. Patient encouraged to participate in group and milieu therapy. 3. The patient was encouraged to use pseudoephedrine for nasal congestion. If this persists, the patient may benefit from cetirizine. 4. Treatment team to meet with patient on a daily basis 5. The patient's court hearing was moved to Sunday, with 90 day revocation requested due to aggressive behavior and difficulty in placement. 6. No special precautions indicated at this time. 7. PACT team involvement has been requested but not approved. Patient has also been referred to [facility] 8. The patient is encouraged to abstain from the use of drugs or alcohol. 9. Laboratory studies indicate medication adherence. Charbel Sahu MD Aug 24, 2016 18:20
--- NOTE | 2016-08-24 20:29 | NUR ---
Observations 0900 to 2130 Pt affect and mood was friendly, goofy and mostly bright. Pt speech and eye contact was good. Pt was social with staff and select peers approached. Pt maintained behavior throughout the shift. Pt continues to need redirection and talked to about boundaries. Pt was mostly appropriate with staff and peers, improvement from previous days. Pt attended meals in the D.R. and ate 100% of breakfast, 100% of lunch and 100% of dinner. Pt ate snack. Pt attended group and unit activities. Pt attended wrap up group and stated that he met his goal for the day. Pt rated his mood and overall day a 6/10 with 10 being the best. Pt was observed every 15 minutes throughout the shift as ordered.
[2016-08-24] MEDS: Divalproex (QD) 500 mg ER24 Tablet PO SCH (20:49)
[2016-08-24] MEDS: risperiDONE 2 mg Tablet PO SCH (20:49)
--- NOTE | 2016-08-25 05:17 | NUR ---
Nursing Noc Pt less theatrical than noted on previous shifts, Out to common area for snacks, accepted evening medications and PRNs. Linear thought content and observant of activities within environment. Continuing to monitor Q15 minute for safety, mood, behavior, emotional state, and medication effectiveness. CP
--- NOTE | 2016-08-25 05:47 | NUR ---
Pt in room most of shift. Out for snacks and some interaction with others. Behavior more appropriate. Asleep at 2200. Pt observed every 15 minutes as ordered.
[2016-08-25] MEDS: LORazepam 1 mg Tablet PO PRN ×2 (15:37→22:49)
--- NOTE | 2016-08-25 16:59 | NUR ---
Nursing Day Shift S: "I really want a cigarette. That's why I really wanted to go so bad today." O: Patient had court today. Modified order given for up to 6 more days until 08/27/2016 1700. patient made above statement after court but states he is happy "things are going the way they are." Has been up for meals with a good appetite. Med compliant. Social with staff and peers. Attending group activities. Denies anxiety, depression, harmful thoughts, and hallucinations. A: Social. Alert. Bright. P: CPOC. Monitor mood and behavior. Addendum: 08/25/16 at 1720 by SHADY MOORE RN Amended: Links added.
[2016-08-25 18:00] VITALS: BP 128/85; PULSE 97; RESP 14
--- NOTE | 2016-08-25 18:49 | NUR ---
[facility] Day Shift Pt affect and behavior mostly unchanged from previous shifts. Pt maintained behavioral control throughout the shift. Pt affect appears mostly euthymic, somewhat flat in the AM. Pt spends most of the shift resting/sleeping in his room, pacing the unit, interacting with peers, and participating in unit activities. Pt has not displayed any inappropriate behaviors throughout the shift. Pt did not attend community meeting in the AM. Pt participated in group activities throughout the shift. Pt attended all meals and ate approx 100% of all meals.
--- NOTE | 2016-08-25 20:36 | PCM.PNPSY ---
Subjective Date of Service Aug 25, 2016 Subjective The patient had court today and indicated that he would prefer to be discharged rather than wait for PACT team or [facility]. The patient received a court order to be discharged by Sunday of next week(08/30/2016). He reports that should he be discharged without pact follow-up he would like to be discharged to [place] the [facility]. He denies any side effects or medical issues outside of possibly having some strange dreams last night. He was still open to being with the PACT team in the [place] or [place] area or to [facility] if this became available. Sleep: 7+ hours, "okay" Appetite: "Good" Suicidal and homicidal ideation: Denies Auditory hallucinations/Visual hallucinations: Denies Other Psychotic Symptoms: Denies. Anxiety: 2-3/10 Depression: 0/10 Mental Status Exam Vital Signs Vital Signs Date Time Temp Pulse Resp B/P Pulse Ox O2 Delivery O2 Flow Rate FiO2 08/25/16 18:00 36.6 97 14 128/85 Appearance: Neat/well groomed Attitude: Pleasant, Cooperative Behavior: No unusual behavior Affect: Well Modulated/Appropriate Mood: Euthymic Thought Process/Associations: Logical/Sequential, Goal Directed Speech Production: Normal Speech Rate: Normal Speech Articulation: Normal Thought Content: Appropriate Danger to Self/Suicidal Ideati: None Danger to Others: None Hallucinations: Auditory (Denies), Visual (Denies) Consciousness: Alert Orientation: Person, Place, Date, Situation Estimate Intellectual Function: Average Basis for IQ estimate: Awareness current events, Word use/vocabulary, Educational history Attention/Concentration & Cogn: Impaired Insight: Limited Judgement: Limited Result Diagram: 08/24/16 0910 08/24/16 0910 Mental Health Plan The patient is a 31-year-old male with a history of schizoaffective disorder with discharge one week prior to admission who was admitted under a revocation of a LR 90, after presenting to the emergency department at [facility] with altered mental status. [facility] suggested that the patient has not taken medications since his discharge. On the mental health unit, the patient was initially quite impulsive and tore a door off its hinges. The patient has gradually calmed over the course of his hospital stay and is more appropriate and interacts appropriately with peers and staff. It is unclear what community resources remain available to him at this time due to his ongoing impulsivity and property damage. PACT team has yet to definitively state whether they can follow the patient. The patient would prefer to stay in the [facility] if possible. The patient is agreeable to having a referral sent to [facility]. Laboratory values essentially within normal limits with Depakote level 57, previous level 58. Patient continues to remain stable and awaiting disposition with termination court order inpatient treatment on 08/30/2016. [place] AXIS I 1. Schizoaffective disorder, bipolar type. 2. Polysubstance use disorder. AXIS II Antisocial personality features. AXIS III None. AXIS IV Stressors are noted for noncompliance with medications, chronic mental health issues, chronic substance abuse issues. AXIS V Global assessment of functioning = 40. Medications Depakote 1500 mg ER q.h.s., Risperdal 4 mg q.h.s., Seroquel 100 mg q.4 hours p.r.n. p.o. for agitation, Lorazepam 2 mg q.4 hours p.o. or IM for agitation or anxiety, Hydroxyzine 50mg po q4hr PRN anxiety/agitation/insomnia Haldol 10 mg p.o. or IM q.4 hours for agitation, Benadryl 50 mg p.o. or IM q.4 hours for EPS. Treatments 1. Continue all medications as noted above. 2. Patient encouraged to participate in group and milieu therapy. 3. The patient was encouraged to use pseudoephedrine for nasal congestion. If this persists, the patient may benefit from cetirizine. 4. Treatment team to meet with patient on a daily basis 5. The patient received a modification of his 90 day order with additional time until 08/30/2016.. 6. No special precautions indicated at this time. 7. PACT team involvement has been requested but not approved. Patient has also been referred to [facility] 8. The patient is encouraged to abstain from the use of drugs or alcohol. 9. Laboratory studies indicate medication adherence. Charbel Sahu MD Aug 25, 2016 20:36
[2016-08-25] MEDS: risperiDONE 2 mg Tablet PO SCH (21:35)
[2016-08-25] MEDS: Divalproex (QD) 500 mg ER24 Tablet PO SCH (21:35)
[2016-08-25] MEDS: diphenhydrAMINE 50 mg Capsule PO PRN (22:49)
[2016-08-25] MEDS: hydrOXYzine Pamoate 25 mg Capsule PO PRN (22:51)
--- NOTE | 2016-08-26 05:29 | NUR ---
Nursing Noc Pt pleasant this shift. Noted to have family visit this evening. Pt requested all available PRNs for sleep. Pt reports he will be discharged next week for sure. Either to the street or [facility] housing. Continue to monitor sleep times by Q15 minute safety checks, mood, behavior, emotional state, and medication effectiveness.
--- NOTE | 2016-08-26 05:42 | NUR ---
Pt out on unit in evening watching TV and interaction with others. Enjoyed visit from sister and cousin. Behavior more appropriate. Asleep at 2315. Pt observed every 15 minutes as ordered.
[2016-08-26 12:31] VITALS: BP 116/65; PULSE 63; RESP 16
--- NOTE | 2016-08-26 14:59 | NUR ---
[id number]. nurs. S/O: pt has been isolating in bed ,does get up for meals and snacks, quickly returns to bed. Pt sounding congested and given Sudafed in am. Pt awaiting disposition plans of assessment with [facility] on Sunday, and f/u with [facility] housing application. Pt has expressed in past that he has a lot of difficulty with craving to smoke cigarettes, does use Nicorette but not nicoderm but ltd reduction of craving. A:Pt denying pxs apart from wanting to be able to discharge to housing. Pt did get out of bed at 1515 with enc. to be active to promote sleep tonight. Pt taking shower and to play ping pong with MHA. P:CNCP
--- NOTE | 2016-08-26 19:33 | PCM.PNPSY ---
Subjective Date of Service Aug 26, 2016 Subjective The patient reports that he is doing well with no particular complaints today. He states he slept well and "I had an awesome dream-different ways the human race could have all." Sleep: 6+ hours good. Appetite: "Okay" Suicidal and homicidal ideation: Denies Auditory hallucinations/Visual hallucinations: Denies Anxiety: 0/10 Depression: 0/10 Mental Status Exam Vital Signs Vital Signs Date Time Temp Pulse Resp B/P Pulse Ox O2 Delivery O2 Flow Rate FiO2 08/26/16 12:31 37.0 63 16 116/65 Appearance: Neat/well groomed Attitude: Pleasant, Cooperative Behavior: No unusual behavior Affect: Well Modulated/Appropriate Mood: Euthymic Thought Process/Associations: Logical/Sequential, Goal Directed Speech Production: Normal Speech Rate: Normal Speech Articulation: Normal Thought Content: Appropriate Danger to Self/Suicidal Ideati: None Danger to Others: None Hallucinations: Auditory (Denies), Visual (Denies) Consciousness: Alert Orientation: Person, Place, Date, Situation Estimate Intellectual Function: Average Basis for IQ estimate: Awareness current events, Word use/vocabulary, Educational history Attention/Concentration & Cogn: Impaired Insight: Good Judgement: Limited Result Diagram: 08/24/16 0910 08/24/16 0910 Mental Health Plan The patient is a 31-year-old male with a history of schizoaffective disorder with discharge one week prior to admission who was admitted under a revocation of a LR 90, after presenting to the emergency department at [facility] with altered mental status. [facility] suggested that the patient has not taken medications since his discharge. On the mental health unit, the patient was initially quite impulsive and tore a door off its hinges. The patient has gradually calmed over the course of his hospital stay and is more appropriate and interacts appropriately with peers and staff. It is unclear what community resources remain available to him at this time due to his ongoing impulsivity and property damage. PACT team has yet to definitively state whether they can follow the patient. The patient would prefer to stay in the [place] area if possible. Laboratory values essentially within normal limits with Depakote level 57, previous level 58. Referrals have been made to [facility] in [facility]CT and to [facility] and [facility]CT are expected to arrive early next week for assessment. Patient continues to remain stable and awaiting disposition with termination court order inpatient treatment on 08/30/2016. [place] AXIS I 1. Schizoaffective disorder, bipolar type. 2. Polysubstance use disorder. AXIS II Antisocial personality features. AXIS III None. AXIS IV Stressors are noted for noncompliance with medications, chronic mental health issues, chronic substance abuse issues. AXIS V Global assessment of functioning = 40. Medications Depakote 1500 mg ER q.h.s., Risperdal 4 mg q.h.s., Seroquel 100 mg q.4 hours p.r.n. p.o. for agitation, Lorazepam 2 mg q.4 hours p.o. or IM for agitation or anxiety, Hydroxyzine 50mg po q4hr PRN anxiety/agitation/insomnia Haldol 10 mg p.o. or IM q.4 hours for agitation, Benadryl 50 mg p.o. or IM q.4 hours for EPS. Treatments 1. Continue all medications as noted above. 2. Patient encouraged to participate in group and milieu therapy. 3. The patient was encouraged to use pseudoephedrine for nasal congestion. If this persists, the patient may benefit from cetirizine. 4. Treatment team to meet with patient on a daily basis 5. The patient received a modification of his 90 day order with additional time until 08/30/2016.. 6. No special precautions indicated at this time. 7. PACT team involvement has been requested but not approved. Patient has also been referred to [facility] 8. The patient is encouraged to abstain from the use of drugs or alcohol. 9. Laboratory studies indicate medication adherence. Charbel Sahu MD Aug 26, 2016 19:33
[2016-08-26] MEDS: risperiDONE 2 mg Tablet PO SCH (20:37)
[2016-08-26] MEDS: Divalproex (QD) 500 mg ER24 Tablet PO SCH (20:37)
--- NOTE | 2016-08-26 21:25 | NUR ---
OBSERVATIONS 0900 TO 2130 Pt remained in bed all morning. Once up, pt was social with peers and staff. Played table tennis, watched television with peers. Maintained appropriateness majority of the shift with occasional inappropriate, sexually charged comments toward female staff but redirected easily. Maintained Q15 safety checks as directed.
--- NOTE | 2016-08-27 05:12 | NUR ---
Nursing Noc Pt pleasant and cooperating with staff and patients. Scheduled [facility] assessment Sunday. Noted to be asleep for the night at 2044 by q15 minute safety checks. Continuing to monitor safety, mood, behavior, emotional state and medications.
[2016-08-27 15:40] VITALS: BP 137/70; PULSE 70; RESP 16
--- NOTE | 2016-08-27 16:24 | NUR ---
[id number]. nurs. S: "I'm depressed cause I am here, bored day after day, with nothing to do, except look forward to meals, I say I'm a 0/10.. but O: Pt with calm presentation, controlled behaviour over day until before dinner, then started to escalate with loud pressured presentation, and some poor boundaries with speech to staff, quickly forgetting all expressed intention to practice any of activities available on unit to provide productive distraction . Pt talked of persistent craving to smoke cigarettes, with angry eye expression, and restless, did agree to spend time out on patio with MHA and able to decrease pt's frustration and desire to act in out of control manner within 20minutes and remained on break for 30minutes pt using music head phones on return. Pt stated he did not want to use offered ativan because he expected to discharge without this med and did not want to have reliance on it here for self control. Pt hopeful of solving disposition px this week. P:CNCP
--- NOTE | 2016-08-27 17:26 | NUR ---
Melting Supervisor./ c.m. S.:"I'm doing pretty good." O.: met with pt. and MD together. Pt. slept "well" last night. He denied SI/HI, denied AH/VH, denied paranoid/delusional thoughts, denied depression or anxiety. He denied side effect of meds. He was looking forward to a mtg with Sparkle Carver from [facility]. He was in and out of his room walking in a bardales or talking to selective peers. A.: pt. is cooperative, pleasant, has a bright affect. P.: monitor behavior, follow care plan.
--- NOTE | 2016-08-27 18:32 | NUR ---
[facility] Day Shift Pt affect and behavior mostly unchanged from previous shifts. Pt maintained behavioral control throughout the shift. Pt affect appears mostly euthymic, somewhat flat in the AM. Pt spends most of the shift resting/sleeping in his room, pacing the unit, interacting with peers, and participating in unit activities. Pt has not displayed any inappropriate behaviors throughout the shift, though pt did become rambunctious in the evening (pt was able to calm down somewhat following staff intervention). Pt did not attend community meeting in the AM. Pt participated lightly in group activities throughout the shift. Pt attended all meals and ate approx 100% of all meals.
--- NOTE | 2016-08-27 18:37 | PCM.PNPSY ---
Subjective Date of Service Aug 27, 2016 Subjective The patient reports that he is doing well with no particular complaints today. He states that he did not sleep as well as he did not take all the medications could have at bedtime. We discussed that the PACT team would be coming to do an assessment ostensibly for Sunday. Sleep: 9.5+ hours good. Appetite: "Hungry but not hangry" Suicidal and homicidal ideation: Denies Auditory hallucinations/Visual hallucinations: Denies Anxiety: 0/10 Depression: 0/10 Mental Status Exam Vital Signs Vital Signs Date Time Temp Pulse Resp B/P Pulse Ox O2 Delivery O2 Flow Rate FiO2 08/27/16 15:40 36.2 70 16 137/70 Appearance: Neat/well groomed Attitude: Pleasant, Cooperative Behavior: No unusual behavior Affect: Well Modulated/Appropriate Mood: Euthymic Thought Process/Associations: Logical/Sequential, Goal Directed Speech Production: Normal Speech Rate: Normal Speech Articulation: Normal Thought Content: Appropriate Danger to Self/Suicidal Ideati: None Danger to Others: None Hallucinations: Auditory (Denies), Visual (Denies) Consciousness: Alert Orientation: Person, Place, Date, Situation Estimate Intellectual Function: Average Basis for IQ estimate: Awareness current events, Word use/vocabulary, Educational history Attention/Concentration & Cogn: Impaired Insight: Good Judgement: Limited Result Diagram: 08/24/16 0910 08/24/16 0910 Mental Health Plan The patient is a 31-year-old male with a history of schizoaffective disorder with discharge one week prior to admission who was admitted under a revocation of a LR 90, after presenting to the emergency department at [facility] with altered mental status. [facility] suggested that the patient has not taken medications since his discharge. On the mental health unit, the patient was initially quite impulsive and tore a door off its hinges. The patient has gradually calmed over the course of his hospital stay and is more appropriate and interacts appropriately with peers and staff. It is unclear what community resources remain available to him at this time due to his ongoing impulsivity and property damage. PACT team has yet to definitively state whether they can follow the patient. The patient would prefer to stay in the [place] area if possible. Laboratory values essentially within normal limits with Depakote level 57, previous level 58. Referrals have been made to [facility] and to [facility] and [facility]CT are expected to arrive early next week for assessment. Patient continues to remain stable and awaiting disposition with termination court order inpatient treatment on 08/30/2016. Valproic acid level from 08/14/2016 was 58 from 08/24/2016 was 57. CBC from was within normal limits. CMP from 08/24/2016 within normal limits except for creatinine of 0.66 glucose 110 and total protein 6.0. [place] AXIS I 1. Schizoaffective disorder, bipolar type. 2. Polysubstance use disorder. AXIS II Antisocial personality features. AXIS III None. AXIS IV Stressors are noted for noncompliance with medications, chronic mental health issues, chronic substance abuse issues. AXIS V Global assessment of functioning = 40. Medications Depakote 1500 mg ER q.h.s., Risperdal 4 mg q.h.s., Seroquel 100 mg q.4 hours p.r.n. p.o. for agitation, Lorazepam 2 mg q.4 hours p.o. or IM for agitation or anxiety, Hydroxyzine 50mg po q4hr PRN anxiety/agitation/insomnia Diphenhydramine 50 mg every 4 hours when necessary EPS Haldol 10 mg p.o. or IM q.4 hours for agitation, Benadryl 50 mg p.o. or IM q.4 hours for EPS. Pseudoephedrine 30 mg every 6 hours when necessary Treatments 1. Continue all medications as noted above. 2. Patient encouraged to participate in group and milieu therapy. 3. The patient was encouraged to use pseudoephedrine for nasal congestion. If this persists, the patient may benefit from cetirizine, patient still declining at this time. 4. Treatment team to meet with patient on a daily basis 5. The patient received a modification of his 90 day order with additional time until 08/30/2016. 6. No special precautions indicated at this time. 7. PACT team involvement has been requested but not approved; anticipate at least [facility] assessment ostensibly for Sunday. Patient has also been referred to [facility]. 8. The patient is encouraged to abstain from the use of drugs or alcohol. 9. Laboratory studies indicate medication adherence. Charbel Sahu MD Aug 27, 2016 18:37
[2016-08-27] MEDS: risperiDONE 2 mg Tablet PO SCH (20:21)
[2016-08-27] MEDS: Divalproex (QD) 500 mg ER24 Tablet PO SCH (20:21)
[2016-08-27] MEDS: hydrOXYzine Pamoate 25 mg Capsule PO PRN (23:34)
[2016-08-27] MEDS: LORazepam 1 mg Tablet PO PRN (23:53)
--- NOTE | 2016-08-28 05:49 | NUR ---
Nursing Noc Pt noted to be more energetic and intrusive to staff and patients as evening progressed to bed time. Remained directable and retired to room on own when noted to be loud and inappropriate. Pt able to calm self independently and welcomed staff interaction r/t behavior. Appeared sexually preoccupied by female staff, which was displayed both physically and emotionally in room only when female staff was not present. Continuing to monitor sleep, emotional state, mood, behavior, and medication effects by q15 minute safety checks. CP
--- NOTE | 2016-08-28 07:01 | NUR ---
OBSERVATIONS 1900 TO 0700 Pt did not maintain appropriate conduct throughout the shift, became agitated when he was asked to use a spork instead of spoon and denied a third ice cream. Pt made several lewd and derogatory comments regarding female staff. Pt dropped trash in dining room and popcorn throughout hallways saying, "Now you have to clean it up." Pt was heard several times saying, "Come on, put me in seclusion! Do it!" when asked to cease inappropriate and disruptive behaviors. Pt was restless and had a difficult time falling asleep. Pt noted asleep at 0100. Q15 safety checks maintained as directed. Addendum: 08/28/16 at 0711 by [facility] Pt attended evening wrap-up but was disruptive and non-participatory.
--- NOTE | 2016-08-28 12:15 | NUR ---
Nursing Note [id number] Behavior S/O: Pt only up for meals & snacks then goes back to bed. Good appetite. Pt sleeping between meals. Minimal interaction with staff & peers. Maintains good behavioral control. Conversation tracking clear. A: Isolative to room. Appears tired. P: Provide supportive environment. Monitor medications & effects.
--- NOTE | 2016-08-28 16:50 | NUR ---
Striping Machine Operator./ c.m. S.:"I'm fine.... Why do you need to know what happened yesterday? You are just a special education case manager! I'm not talking to you anymore." O.: met with pt. in a private room. He was in and out of his room mostly keeping to himself. He is waiting for a mtg with Sprakle Duarte from [facility] tomorrow. He denied SI/HI, denied AH/VH or paranoid/delusional thoughts. He denied depression or anxiety. He became angry after global technical writer's question about yesterday incident. He refused to talk and left the room. A.: pt. is unpredictable, easily agitated. P.: monitor behavior, provide safety in the unit, follow care plan.
--- NOTE | 2016-08-28 18:01 | NUR ---
Observations [id number] Pt was asleep upon start of shift. Pt appeared to be extremely tired, sleeping much of the day. He attended meals eating 100% along with snacks but went right back to bed afterwards. Pt presents with a large appetite. Pt did not attend Community Meeting or set a daily goal. He stated that he's been sleeping so much due to "all the pills I am taking." Pt appeared more awake in the evening hours and was more social with peers. He was observed every 15 minutes of shift as directed.
[2016-08-28] MEDS: risperiDONE 2 mg Tablet PO SCH (20:45)
[2016-08-28] MEDS: Divalproex (QD) 500 mg ER24 Tablet PO SCH (20:45)
--- NOTE | 2016-08-28 21:20 | PROG NOTE ---
[address] [address] PROGRESS NOTE PATIENT: WILFRED HERNANDEZ : 1985 MR#: [id number] ADMIT: 08/09/2016 JOB ID: [id number] DATE: 08/28/2016 CHIEF COMPLAINT: " , I guess I am meeting with the PAC team today." This is per patient report. HISTORY OF PRESENT ILLNESS: As stated above, the patient was very casual. He was able to recall interactions with myself. He indicated that he is currently awaiting an interview process through the pact team and identified that he is hoping that they have some additional housing for him. He reportedly did have an episode last evening with noted agitation and became defensive on inquiry. He indicated that some people just do not like him and he is well aware of that. MENTAL STATUS EXAM: He was bright, cooperative, interactive with myself. His speech was of normal tone, frequency, and volume. His mood was neutral. Affect was congruent. His thought process showed no evidence of racing thoughts, flight of ideas, loose or disconnected thinking. Thought content: He denied any evidence of current suicidal, homicidal ideation. There was a mild degree of paranoia. No evidence of hallucinations or delusions. He was alert, oriented to time, place, and person. Attention and concentration intact. Memory intact in the short term, terminal manager, recent. Insight and judgment are fair. PHYSICAL EXAM: Vital signs are current. Temperature is 36.2, pulse 70 respirations 16, BP 137/71. MEDICATION REVIEW: Includes: 1. Depakote 1500 mg q.h.s. 2. Risperdal 4 mg q.h.s. 3. Haldol 10 mg q.4 h. p.r.n. for agitation both p.o. and IM. 4. Benadryl 50 mg q.4 h. p.r.n. ETS both IM and p.o. 5. Ativan 2 mg daily. ASSESSMENT: [place] I 1. Schizoaffective disorder, bipolar type. 2. Polysubstance use disorder. [place] II Antisocial personality features. [place] III None. [place] IV Stressors are noted for noncompliance with medications, chronic mental health issues, chronic substance abuse. [place] V Global assessment of functioning current 40. PLAN: 1. Recommendations for titration of Depakote to 2000 mg ER q.h.s. based on recent levels of 57. 2. Continuation of Risperdal 4 mg q.h.s., Haldol and p.r.n. Seroquel, as noted. 3. Recommendations for probable discharge later this week with transition through pact team consolidation.
--- NOTE | 2016-08-29 02:39 | NUR ---
Observations 1900 to 0700 Pt wasn't out in the DR as much as some of his previous nights here. Pt did attend group and have some snacks before going back to his room for the night. Pt first appeared asleep at 21:00 and was observed every 15 minutes through the night as directed.
--- NOTE | 2016-08-29 06:18 | NUR ---
Nursing note NOC Patient remained in room almost entire night Appears to have slept all shft, approximately 8.5 hours. Up x1 for 1/2 hour, beween 0215 and 0245,
[2016-08-29 10:00] VITALS: BP 145/79; PULSE 93; RESP 17
[2016-08-29] MEDS ORDERED: Paliperidone Palmitate 234 mg/1.5 mL Inj (NC) IM SCH (13:10)
--- NOTE | 2016-08-29 15:50 | NUR ---
Manager Mission./ c.m. S./O.: spoke with Sparkle Duarte who came for PACT Assessment. Pt. was accepted into PACT. Sparkle asked us to call her tomorrow to schedule pt.'s transportation to a new placement. She said that [facility] had opening and pt. agreed to go there. A.: pt. is cooperative, pleasant, agreeing with discharge plan. P.: monitor behavior, coordinate transportation with PACT; follow care plan.
[2016-08-29] MEDS ORDERED: Paliperidone Palmitate 234 mg/1.5 mL Inj IM ONE (15:55)
--- NOTE | 2016-08-29 16:24 | PROG NOTE ---
[address] [address] PROGRESS NOTE PATIENT: WILFRED HERNANDEZ : 1985 MR#: [id number] ADMIT: 08/09/2016 JOB ID: [id number] DATE: 08/29/2016 CHIEF COMPLAINT: "Sure, I will take the shot, it means that I do not have to take the pills every single day." This per patient report. HISTORY OF PRESENT ILLNESS: As stated above, the patient agreed to initiate doses of Invega indicating that he basically was agreeable to take the medication in the past, only if they gave it to him in his deltoid versus gluteal injection site. He reported that he believes in the past that he has informed myself of that. However, I do not recall the conversation. The patient nonetheless will be initiated on Invega Sustenna today at 234 mg. He otherwise is cooperative, polite. He was very congenial and supportive throughout the course of the interaction throughout the daytime. He has been much more redirectable and at times almost giddish. He denies any evidence of hallucinations, delusions. He indicated that he was excited that the PACT team will be evaluating him today for possible resources of housing. OBJECTIVE: On mental status examination, he was bright, cooperative, interactive. On several interactions his speech was of normal tone, frequency and volume. His mood was neutral. Affect was congruent. His thought process showed no evidence of racing thoughts, flight of ideas, loose association, disconnection of thought. Thought content: He denied any evidence of current suicidal or homicidal ideation. No evidence of active hallucinations, delusions. He was alert, oriented to person, place, time, situation. Attention and concentration intact. Memory intact in the short term, correction, recent. Insight and judgment were fair. PHYSICAL EXAMINATION: Vital signs were not completed. MEDICATION REVIEW: Includes: 1. Depakote 2000 mg q.h.s. 2. Risperdal 4 mg q.h.s. 3. P.r.n. doses of Haldol. ASSESSMENT: AXIS I 1. Schizoaffective disorder, bipolar variant. 2. Polysubstance use disorder. AXIS II Antisocial personality features. AXIS III None. AXIS IV Stressors are noted for chronic substance use, chronic mental health issues, noncompliance. AXIS V Global assessment of functioning of current 35. PLANS: 1. Recommendations for initiation of Invega Sustenna 234 mg IM today with followup of 156 mg on September 03. 2. Continuation of Risperdal 4 mg q.h.s. for one month, then discontinue. 3. Continuation of Depakote 2000 mg q.h.s. 4. Continuation of disposition planning with the PACT team to follow.
--- NOTE | 2016-08-29 17:03 | NUR ---
Observations [id number] Pt was asleep upon start of shift. Pt appeared to be in better spirits then yesterday, spending more time in the common areas with peers. Pt attended all meals, eating 100% and presents with a large appetite. Pt spoke with the PACT team in the afternoon and appears to be excited about his future and leaving. Pt walked halls with peers and socialized in the evening. Pt was observed every 15 minutes of shift as directed.
--- NOTE | 2016-08-29 19:16 | NUR ---
Nursing: Day shift: Emery has been active on the open unit. He talks readily to peers. He interacts with staff and has a rapport with them that he even tried to act as a peer advocate. No evidence of psychotic thinking today. Took meds as offered: Invega 234 mg dose IM. Smiling. Met with [facility] for intake with them. Looking forward to discharge when housing can be arranged.
[2016-08-29] MEDS: Divalproex (QD) 500 mg ER24 Tablet PO SCH (20:38)
[2016-08-29] MEDS: risperiDONE 2 mg Tablet PO SCH (20:38)
[2016-08-29] MEDS: diphenhydrAMINE 50 mg Capsule PO PRN (22:15)
[2016-08-30] MEDS: hydrOXYzine Pamoate 25 mg Capsule PO PRN (00:27)
[2016-08-30] MEDS: LORazepam 1 mg Tablet PO PRN (01:17)
--- NOTE | 2016-08-30 02:02 | NUR ---
Observations 1900 to 0700 Pt was out in the DR and more social than the previous nights. Pt . Pt did attend group and have some snacks. Pt had trouble of falling asleep last night. Pt was observed every 15 minutes through the night as directed.
--- NOTE | 2016-08-30 10:46 | PCM.DIMED ---
Discharge Instructions Date of Service Aug 30, 2016 Dates of Hospitalization Aug 09, 2016 at 16:21 Discharge Diagnosis Discharge Diagnosis Schizoaffective DO bipolar type Polysubstance Use DO Diet No restrictions Activity No restrictions Omar Tate DO Aug 30, 2016 10:46
[2016-08-30] MEDS ORDERED: DIVA500T14 PO (10:48)
[2016-08-30] MEDS ORDERED: PALI156D IM (10:48)
[2016-08-30] MEDS ORDERED: RISP2TAB21 PO (10:48)
--- NOTE | 2016-08-30 14:09 | PROG NOTE ---
[address] [address] PROGRESS NOTE PATIENT: WILFRED HERNANDEZ : 1985 MR#: [id number] ADMIT: 08/09/2016 JOB ID: [id number] DATE: 08/30/2016 CHIEF COMPLAINT: "I am glad I get to go tomorrow." This is per patient report. HISTORY OF THE PRESENT ILLNESS: As stated above, the patient openly identified his willingness to cooperate with staffing with PACT for transfer to [facility], a [facility]. He reports that he is glad that he has some place to go and further indicated that he is willing to remain on his medications. OBJECTIVE: On mental status exam, he was bright, cooperative, interactive. He maintained good eye contact throughout. His speech was of normal tone, frequency and volume. His mood was neutral. Affect was congruent. His thought process showed no evidence of random flight of ideas, loose or disconnected thinking. Thought content, he denied any evidence of current suicidal or homicidal ideation. He was alert, oriented to person, place, time, situation. Attention and concentration intact. 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 Insight and judgment are fair. PHYSICAL EXAMINATION: Vital signs of current are not listed. MEDICATION REVIEW: Includes: 1. Depakote 2000 mg q.h.s. 2. Risperdal 4 mg q.h.s. 3. Invega Sustenna first injection of 234 mg given yesterday, next injection on the 8th at 156. ASSESSMENT: AXIS I 1. Schizoaffective disorder, bipolar variant. 2. Polysubstance use disorder. AXIS II Antisocial personality traits. AXIS III None. AXIS IV Stressors are noted for chronic mental health issues, chronic substance abuse issues. AXIS V Global Assessment of Functioning current 40. PLAN: 1. Recommendation is to discharge tomorrow to PACT team, [facility]. 2. Continuation of medications as noted. 3. Depakote level to be obtained tomorrow morning for final reading, along with ammonia levels and LFT for final review.
--- NOTE | 2016-08-30 15:51 | NUR ---
[id number] nurs. Discharge note. Pt has been looking forward to discharging today, with bright affect and controlled behaviour ,pt completing his safety plan and extensive and considered. Pt noting his tendency to lose control, be impulsive and destructive at times. Pt trying to identify non harming actions he can take to deal with these outbursts of negative energy. Pt stating depression level at 2/10, pt stating realizes that his opportunity for secure housing is limited and he will try to avoid actions that will jeopardize planned housing at [facility]. Pt continued to want to joke and distract and treat some of his pxs lightly. But paying attention to impt details of discharge plan . Pt discharged with JESSI Alexis from PACT pt will have mtg and collect food bank items with CM prior to being delivered to [facility]. Discharged at 1510. P:CNCP
--- NOTE | 2016-08-30 17:19 | NUR ---
Case Management/Counseling: S: "I'm looking forward to going to [facility]." O: Met with patient. Patient only slept 3+ hours last night per staff. He denies S/I and H/I. He also denies auditory and visual hallucinations. Depression is 0/10 and anxiety is 0/10. When asked his mood, patient stated, "Ready to get out of here." Out-patient appointment: Reuben Sands, PACT counselor with [facility], 08/30/16 at 3:00pm. A: Patient is cooperative, hopeful, fair insight, fair judgment. P: Follow care plan, coordinate transportation and out-patient providers.
--- NOTE | 2016-08-31 13:42 | DIS ---
[address] [address] DISCHARGE SUMMARY PATIENT: WILFRED HERNANDEZ : 1985 MR#: [id number] ADMIT: 08/09/2016 JOB ID: [id number] DIS: 08/30/2016 ADMITTING DIAGNOSES: [place] I: 1. Schizoaffective disorder, bipolar variant. 2. Polysubstance use disorder. [place] II: Antisocial personality features. [place] III: None. [place] IV: Stressors were noted for noncompliance with medication, chronic mental health issues, chronic substance abuse. [place] V: Global Assessment of Functioning of current 20. DISCHARGE DIAGNOSES: [place] I: 1. Schizoaffective disorder, bipolar variant. 2. Polysubstance use disorder. [place] II: Antisocial personality features. [place] III: None. [place] IV: Stressors were noted for noncompliance with medication, chronic mental health issues, chronic substance abuse. [place] V: Global Assessment of Functioning of current 40. REASON FOR ADMISSION: Patient was a well-known patient with prior hospitalizations. He reportedly was admitted with a revocation of LR 90. During the course of hospitalization patient was agreeable to titrate doses of Depakote eventually to 2000 mg q.h.s., and remained on doses of Risperdal at 4 mg q.h.s. He did show significant evidence of clearing throughout the course of hospitalization after significant difficulties with Code Mccarthy and seclusion and restraint. Throughout hospital course patient was agreeable to reinitiate the administration of IM injectables of Invega Sustenna and was given his 1st loading dose of 244 mg q. month on August 29. He was instructed to follow up with his PAC team rn care manager for his next injection, scheduled on September 03. Throughout hospital course patient was agreeable to initiate service with the PAC team and eventually was placed at [facility] in [facility]. CONDITION AT TIME OF DISCHARGE: Patient's mood and affect were stable. He denied any evidence of current suicidal, homicidal ideation. No evidence of active hallucinations, delusions. He was alert, oriented to time, place, situation. His attention and concentration intact. Memory intact in the short term, detention, recent. Insight and judgment were fair. PLAN: 1. Recommendations to discharge to the PAC team for appropriate placement at [facility]. 2. Continuation of medications including Depakote 2000 mg q.h.s., Risperdal 4 mg q.h.s., and Invega Sustenna 156 mg q. month, next injection September 03. One month supply of all medications was noted. Reason for usage also noted for significant history of psychoses and mood instability. 3. Follow up with his outpatient care provider team through the PACT including medication management and also individual therapy.
[2016-09-03] MEDS ORDERED: Paliperidone Palmitate 156 mg/mL Inj (NC) IM SCH (13:10)
== END 2016-08-30 15:10 | disposition home or self-care (01) | DRG 750 ==
LOC: MHC 16:21
PROVIDERS: ADMIT Psychiatry & Neurology Psychiatry; ATTEND Psychiatry & Neurology Psychiatry
DX: F25.0 Schizoaffective disorder, bipolar type (principal); Z91.14 Patient's other noncompliance with medication regimen; F60.2 Antisocial personality disorder; Z59.0 Homelessness; F19.90 Other psychoactive substance use, unspecified, uncomplicated

== ENCOUNTER 2016-09-03 05:49 | Inpatient (IN) | payer OTHER, MEDICAID ==
[~2016-09-03] VITALS: Ht 188 cm; Wt 100.0 kg
[~2016-09-03 05:49] MED LIST changes: +RISP2TAB21 PO; -RISP4TAB2 PO
[2016-09-03 05:52] VITALS: BP 154/83; PULSE 98; RESP 20; O2SAT 97
[2016-09-03 06:00] VITALS: BP 154/83; PULSE 94; RESP 20; O2SAT 100
--- NOTE | 2016-09-03 06:04 | ED.REPORT ---
HPI-Psychiatric Illness Date of Service Sep 03, 2016 ED Provider: Pt is a 31 year old male who is a well-known patient with prior hospitalizations with schizoaffective, bipolar disorder and chronic substance abuse who was brought to the emergency department by police for bizarre behavior. The patient was found walking on [address] with a garden hoe. The patient states he was "hanging out at the store to buy some cigarettes" and that he wants to go back into the hospital to talk to the psychiatrist and a golf ball trimmer. Pt has no other physical complaints. Upon first inquiry pt confirms suicidal ideation, then says he is "feeling unsafe" and further amends that if the police hadn't picked him up he would have gone to sabianism today in [place]. He was admitted to the [facility] for a few weeks and was discharged home a few days ago. When questioned if he had been taking his prescribed medication, pt reported that the pharmacy would not give him the medication due to his insurance. Patient states that since he was discharged he has been smoking a lot of marijuana. Pt confirms that he is hearing voices, specifically girls that are reciting lines from a popular TV show, and denies visual hallucinations. Nursing Notes Stated Complaint: INTOXICATION Nursing Notes Reviewed: Yes Allergies: Coded Allergies: cefaclor (Verified Allergy, Unknown, 07/11/16) Pt states he does not know his reaction. Parents told him he was allergic to this med. prednisone (Verified Allergy, Unknown, 07/11/16) sulfamethoxazole (Verified Allergy, Unknown, 07/11/16) Pt does not know reaction. His parents told him. trimethoprim (Verified Allergy, Unknown, 07/11/16) Pt does not know reaction. His parents told him. Scheduled Divalproex ER (Divalproex ER) 500 Mg Tab.er.24h 1,500 MG PO HS *DAILY DOSING ONLY* Swallowed whole without chewing to avoid local irritation of the mouth and throat. Divalproex ER (Divalproex ER) 500 Mg Tab.er.24h 2,000 MG PO HS Hydroxyzine Pamoate (HydrOXYzine Pamoate) 50 Mg Capsule 50 MG PO BID Paliperidone Palmitate Inj (Invega Sustenna) 156 Mg/1 Ml Syringe 234 MG IM Q30D Paliperidone Palmitate Inj (Invega Sustenna) 156 Mg/1 Ml Syringe 156 MG IM Q30D Risperidone (Risperdal) 2 Mg Tablet 4 MG PO HS Scheduled PRN Hydroxyzine Pamoate (HydrOXYzine Pamoate) 50 Mg Capsule 50 MG PO BID PRN PRN For Itching General Time Seen by MD: 06:03 Chief Complaint Suicidal ideation Hx Obtained From: Patient, Police Arrived By: Police Onset Occurred: More than a week ago... Symptom Duration: Since onset Severity: Current: No pain currently Severity: Maximum: No pain Recent Healthcare: Recent hospitalization Similar Sx Previous: Yes Risk-Psychiatric Illness Suicide Risk Stratification Suicide Risk Factors - Adult: : Prior psych admission: Substance abuse RF Statements: Risk factors reviewed Past Medical History Past Medical History Schizoaffective disorder, bipolar variant. Polysubstance use disorder. Depression Anxiety Past Surgical History none reported Smoking History Current Every Day Smoker Social History methamphetamine use in past Drug Use: THC Other Social History: Local resident Ambulatory Status Independent Review of Systems Constitutional: Denies: Chills, Fever Respiratory: Denies: Non-productive cough, Shortness of breath Cardiovascular: Denies: Chest pain GI: Denies: Abdominal pain, Diarrhea, Vomiting Skin: Denies Rash Neurologic: Denies: Headache Psychiatric: Reports: Change mental status, Depression, Hallucinations, auditory, Suicidal ideation, Denies: Hallucinations, visual Complete sys rev & neg: except as marked. Physical Exam Initial Vital Signs Vital Signs (First) Date Time Temp Pulse Resp B/P Pulse Ox O2 Delivery O2 Flow Rate FiO2 09/03/16 05:52 36.8 98 20 154/83 97 Room Air Initial VS: Reviewed Head / Eyes: Atraumatic, Normocephalic, PERRL ENT: Mucous membranes moist, Conjunctiva normal Neck: Supple, Non-tender, Full range of motion Respiratory: Breath sounds normal, Clear to auscultation, No respiratory distress Cardiovascular: Regular rate & rhythm, Heart sounds normal, Intact distal pulses Abdomen / GI: Soft, Non-tender, No guarding, No rebound, No distention Extremities: Vascular intact, Neuro intact, No swelling, No tenderness Skin: Warm, Dry, No cyanosis General/Constitutional: Awake, Alert Neurologic: No motor deficits, No sensory deficits, Gait NL Abnormal Thinking / Perception: Positive: Hallucinations, auditory (Girls talking to him about a TV show), Suicidal, no plan Odd affect Suicidal but no active intent or plan Pt reports that he would not actually commit suicide bc he's, "too much of a pussy." Vague statement that if a car pulled out in front of him, "that's their choice," but he would move out of the way. Interpretation & Diagnostics Lab Results Interpretation Result Diagram: 09/03/16 0703 09/03/16 0703 Test 09/03/16 06:58 09/03/16 07:03 09/03/16 08:29 Hold Urine Received (Received) White Blood Count 10.3th/mm3 (3.8-10.1) Red Blood Count 5.26mil/mm3 (4.40-5.80) Hemoglobin 15.3g/dL (13.8-17.2) Hematocrit 44.4% (41.0-50.0) Mean Corpuscular Volume 84.4fL (81-100) Mean Corpuscular Hemoglobin 29.1pg (27.0-35.0) Mean Corpuscular Hemoglobin Concent 34.5% (32.0-37.0) Red Cell Distribution Width 13.5% (12.3-15.4) Platelet Count 174bil/L (150-400) Neutrophils (%) (Auto) 67.3% (40-74) Lymphocytes (%) (Auto) 19.5% (14-46) Monocytes (%) (Auto) 11.1% (4-12) Eosinophils (%) (Auto) 1.7% (0-5) Basophils (%) (Auto) 0.1% (0-3) Sodium Level 142mEq/L (134-144) Potassium Level 4.8mEq/L (3.5-5.2) Chloride Level 105mEq/L (97-108) Carbon Dioxide Level 22mmol/L (18-29) Blood Urea Nitrogen 15mg/dL (6-20) Creatinine 0.68mg/dL (0.76-1.27) Estimat Glomerular Filtration Rate 146mL/min (>59) Glucose Level 99mg/dL (60-99) Calcium Level 9.1mg/dL (8.5-10.1) Total Bilirubin 0.6mg/dL (0.0-1.2) Aspartate Amino Transf (AST/SGOT) 18U/L (0-50) Alanine Aminotransferase (ALT/SGPT) 18U/L (0-44) Alkaline Phosphatase 56U/L (25-150) Total Protein 6.8g/dL (6.4-8.4) Albumin 4.2g/dL (3.4-5.0) Thyroid Stimulating Hormone (TSH) 1.780uIU/mL (0.450-4.500) Hold Aguilar Top Tube Received (Received) Re-Eval/Medical Decision Med Decision/Clinical Course Patient will be detained to the care center. Patient is medically clear. Source of Hx: Old records Re-Evaluation/Progress #1: Time of Eval: 06:01 Re-Evaluation/Progress Note: I performed a face to face evaluation at this time. Pt placed in seclusion. Re-Evaluation/Progress #2: Time of Eval: 11:27 Re-Evaluation/Progress Note: Pt rechecked. Re-Evaluation/Progress #3: Time of Eval: 13:42 Re-Evaluation/Progress Note: [facility] is here to evaluate the patient. Consultation #1: Consulted With: mold yard worker Note: DCR will be paged to evaluate the patient. Consultation #2: Referral / Consult Name: Omar Tate DO Consulted With: Psychiatry Document Review Specialist: Will see patient, Agrees with eval, Agrees with plan, Accepts admit Counseled Regarding: Diagnosis, Lab results, Need for admission Discharge & Departure Impression: Primary Impression: Acute psychosis Disposition: ADMITTED TO HOSPITAL Discharge Condition All VS Reviewed: Yes Condition: Stable Referrals: NOPCP (PCP) Scribe Attestation Portion of this note were transcribed by Margo Poon and Carlton Jackson. I, Dr. Ekaterina García, personally performed the history, physcial exam, and medical decision- making: I reviewed and confirmed the accuracy for the information in the transcribed note. Signed by: Carlton Jackson and figueroa Sanchez, 08/31/16 1440. Justo Flores DO Sep 03, 2016 06:04 CARLTON JACKSON Sep 03, 2016 06:23 Margo Poon Sep 03, 2016 08:36 transcribed note. Signed by: [email or web address] 08/31/16 0800 Justo Flores DO Sep 03, 2016 06:04 CARLTON JACKSON Sep 03, 2016 06:23 Margo Poon Sep 03, 2016 08:36
[2016-09-03] MEDS ORDERED: hydrOXYzine Pamoate 25 mg Capsule PO ONE (06:30)
[2016-09-03 07:18] LABS: BASOPHILS % (AUTO) 0.1 % (0-3); EOSINOPHILS % (AUTO) 1.7 % (0-5); MONOCYTES % (AUTO) 11.1 % (4-12); Mean Corpuscular Hemoglobin 29.1 pg (27.0-35.0); Mean Corpuscular Volume 84.4 fL (81-100); NEUTROPHILS % (AUTO) 67.3 % (40-74); Platelet Count 174 bil/L (150-400)
[2016-09-03] MEDS ORDERED: Haloperidol 5 mg/mL Inj IM ONE (11:05)
[2016-09-03 14:17] VITALS: BP 116/75; PULSE 94; RESP 18; O2SAT 100
[2016-09-03 14:55] VITALS: BP 116/75; PULSE 94; RESP 18; O2SAT 100
--- NOTE | 2016-09-03 15:10 | NUR ---
Nurses Admission Note 31 year old male readmitted on LRO after decompensation when found wandering into traffic carrying a garden hoe. He was confused and disorganized in his conversation when picked up by the police and brought to our ER. Patient presented to the unit oriented with poor eye contact,slurred speech wanting to eat. His mood was surly but was able to complete paperwork. He accepted Haldol 10mg PO due to earlier c/o auditory hallucinations in the ER and mounting irritability. Patient was easily agitated while talking about his ER experience to provide a urine specimen. Patient has limited to no insight into behaviors and consequences. He remains self absorbed resenting structure and authority. Will maintain q15min. checks for safety and support.
[2016-09-03] MEDS ORDERED: Alum-Mag Hydrox-Simeth 30 mL Suspension PO PRN (15:35)
[2016-09-03] MEDS ORDERED: Magnesium Hydroxide 10 mL Oral Concentration PO PRN (15:35)
[2016-09-03] MEDS ORDERED: Benzocaine-Menthol Lozenge 2/Pkg PO PRN (15:35)
--- NOTE | 2016-09-03 20:43 | NUR ---
Observations 0900 to 2130 Pt arrived on unit at 1510. Pt was put in room 230 and close to nurses station. Pt is familiar with unit and was just discharged last week. Pt is unpredictable, labile and disheveled. Pt speech and eye contact was ok. Pt was in bed resting after admit. Pt ate snacks shortly after getting on unit. Pt was minimally social with staff and peers when approached. Pt attended meals in the D.R. and ate 100% of dinner. Pt has poor boundaries and needs some redirection. Pt was observed every 15 minutes throughout the shift as ordered. Pt has been in room resting and sleeping most of the evening.
[2016-09-03] MEDS: risperiDONE 2 mg Tablet PO SCH (22:20)
[2016-09-03] MEDS: Divalproex (QD) 500 mg ER24 Tablet PO SCH (22:20)
--- NOTE | 2016-09-04 06:19 | NUR ---
Nursing note NOC Patient slept 7+ hours with no PRNs on NOC. PRN Haldol 10 mg at 1530. Lab creatinine low at .68. Out of room x1 on NOC shift for a snack and returned to bed without incident.
--- NOTE | 2016-09-04 07:02 | NUR ---
Observations from [id number] Pt has remained in room almost all of shift except coming out twice for a snack. Pt appeared asleep at 2044 nad has been monitored every 15 minutes as directed.
[2016-09-04] MEDS ORDERED: Haloperidol 5 mg/mL Inj IM PRN (11:05)
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
[2016-09-04] MEDS: Divalproex (QD) 500 mg ER24 Tablet PO SCH (18:04)
[2016-09-04] MEDS: LORazepam 1 mg Tablet PO PRN (18:05)
[2016-09-04] MEDS: risperiDONE 2 mg Tablet PO SCH (18:05)
--- NOTE | 2016-09-04 18:35 | NUR ---
Observations 0311-0011 Pt was asleep upon start of shift. Pt attended breakfast, and then began walking halls and using phone. Pt made threatening statements to peers and staff. He became very agitated, demanding to know when he could leave. Pt was observed running after staff and becoming very threatening in his body language. Pt was put in seclusion and was able to leave later in the evening in which he went to bed. Pt was observed every 15 minutes by staff and by 1x1 observation while in seclusion.
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
--- NOTE | 2016-09-04 22:21 | HP ---
[address] [address] HISTORY AND PHYSICAL PATIENT: WILFRED HERNANDEZ : 1985 MR#: [id number] ADMIT: 09/03/2016 JOB ID: [id number] IDENTIFICATION OF PATIENT: The patient is a 31-year-old male well known to myself with recent admission and discharge within the past week under an LR 90 with instructions about followup through the PACT team and also current residence at the [facility]. Then, the patient was found [place] on the [place] with a hoe under the influence of substances. He was floridly psychotic and required restraint and seclusion in the emergency department, and was admitted under a petition to revoke. CHIEF COMPLAINT: "I'll agree to take the shots Bebeto." This is per patient report. HISTORY OF PRESENT ILLNESS: As stated above, the patient did agree to submit to injections of medications with staff presence and Code Mccarthy. The patient reportedly in exchange operator hours had become quite agitated, aggressive, and was secluded by the time of my arrival for interview. He was disoriented, confused. He was agreeable to submit to injections and held my hand through the process of injections. He showed significant regressive behaviors with crying throughout the course of injections. He reportedly had been identified as being very inappropriate earlier during the morning and also became quite sexualized on the interactions with myself with witness of other members of the team. PAST MEDICAL HISTORY: Substantial for allergies to 1. CECLOR. 2. PREDNISONE. 3. SULFAMETHOXAZOLE. 4. TRIMETHOPRIM. CURRENT MEDICATIONS: Include: 1. Risperdal 4 mg q.h.s. 2. Invega Sustenna 156 mg given on Sunday of last week. 3. Depakote 2000 mg q.h.s. Other medical history was reviewed through the emergency department report, and agree with findings. PAST PSYCHIATRIC HISTORY: Substantial for multiple admissions. Most recent hospitalization and discharge within the past week. He is currently managed through the PACT team under LR 90 status. SOCIAL HISTORY: Currently patient is single, never , unemployed, he draws disability. FAMILY HISTORY: Deferred. DEVELOPMENTAL HISTORY: Deferred. MENTAL STATUS EXAMINATION: The patient was seen in the seclusion room as noted above. He was dressed in hospital scrub attire. He made intermittent eye contact. He was quite disheveled. His speech is pressured, loose and disorganized. His mood is euphoric. Affect is irritable, labile. His thought process showed evidence of racing thoughts, loose and disorganized thinking, evidence of thought blocking throughout. His thought content, there has been no evidence of suicidal statements, however, he has been quite aggressive and agitated with homicidal variants. No evidence of active hallucinations per his own report, but he appears to be responding to internal stimulus. He was alert. Orientation was off in all quadrants. Insight and judgment are deemed poor. PLAN: 1. Recommendations for initiation of second opinion with forced medications including p.r.n. doses of Haldol 10 mg q.4 h. p.o. or IM, Zyprexa 10 mg q.6 h. p.o. or IM, Ativan 2 mg q.4 h. p.o. or IM. 2. Continuation of scheduled doses of Risperdal 4 mg q.h.s. 3. Continuation of Depakote 2000 mg q.h.s. 4. Recommendations for probable continuation of LR 90 with discharge based on the patient's significant positive methamphetamine usage as primary presentation of current psychoses, however, I would highly encourage the outpatient provider team of PACT to provide additional referrals for chemical dependency as part of his long-term treatment goals.
--- NOTE | 2016-09-05 03:37 | NUR ---
Observations 1900 to 0700 Pt was in his room when my shift and started and remained there for most of the night. Pt first appeared asleep at 19:45 and was observed every 15 minutes through the night as directed.
--- NOTE | 2016-09-05 05:12 | NUR ---
Nursing Noc Pt has remained asleep in his room all shift. He awoke briefly to have a snack and returned to bed without incident. No behavioral outbursts this shift. He did c/o nasal congestion, he received Vistaril 50mg po prn @ 0336 with apparent results. He returned back to sleep with no further physical complaints. Total sleep over 9 hours.
[2016-09-05 08:20] VITALS: BP 150/95; PULSE 116; RESP 17
[2016-09-05] MEDS: LORazepam 1 mg Tablet PO PRN ×2 (10:28→18:00)
[2016-09-05] MEDS ORDERED: diphenhydrAMINE 50 mg Capsule PO ONE (10:40)
[2016-09-05] MEDS ORDERED: OLANZapine Zydis ODT 5 mg Tablet ONE ×2 (10:40→10:41)
[2016-09-05] MEDS ORDERED: LORazepam 2 mg Tablet ONE (10:40)
[2016-09-05] MEDS ORDERED: OLANZapine Zydis ODT 5 mg Tablet PO PRN (11:40)
--- NOTE | 2016-09-05 13:25 | NUR ---
Nursing: Day shift: 07 Emery is pacing in [address]. Quiet tones to voice when approaching staff. Asked, "When do I get another nurse?" 0830 Emery came to nursing station with no provocation from staff and made statement to security staff who was in nursing station on an errand, "Hey, security, come on out. I've got something for you." in threatening tone. 0900 Another patient reported to [facility] staff that Emery said to her "Get out of here. This is MY bardales." 09 Emery is walking in bardales, talking in a loud voice to people on the PACT team. "Get me out of here!" 1000 Heel Slugger asked Emery how he was doing, what he found out from PACT about living at [facility] where he had been discharged to on aug 30, 2016, Emery replied, "Where do YOU live? Tell me where YOU live. When short story writer declined, he stated, "You are a whore... a shit".... Get me out of here!" 1020 When short story writer asked Emery to stay in Dining room and east bardales, he replied, "Watch me" and swaggered down the west bardales. At 1030, Emery approached short story writer and requested Ativan. When asked to rate his anxiety, he stated, "I'm not anxious. I'm angry and frustrated about being here." Ativan 1 mg po administered at 10:30. Due to pt's escalating behavior, security members were called at 1035 and pt was escorted to seclusion room. Orders received and seclusion began at 1040. Addendum: 09/05/16 at 1949 by MARY DELGADO RN 0700 to 1900 notes continued. After being put in seclusion and medicated, Emery has remained with no insight as to why he is in seclusion even though he has been debriefed multiple times. He was offered and had explanations about a behavioral contract that, if he could undersstand and agree to, could have provided a step toward having seclusion discontinued. He refused to sign and stated, "I don't understand." Behavior is labile between being calm and speaking in a normal tone to yelling, kicking, spitting, and throwing plastic food containers about the room. Seclusion is still ongoing due to behaviors that are not able to be safe to others in the open unit.
--- NOTE | 2016-09-05 14:55 | NUR ---
Assistant Softball Coach./ c.m. S.:"Get me out of here!" O.: pt. was walking in a bardales on and off and making threatening comments to female peers. Most of peers were trying to stay in their rooms in order to avoid him. Probate Lawyer called [facility] ([phone]) and spoke with Dana who said that PACT was aware of pt.'s hospitalization here. She said that pt.'s c.m. is [facility]. She didn't know who was pt.'s med. provider. Pt.'s behavior became more provocative in the middle of the morning and he was escorted into seclusion room. A.: pt. is unpredictable, easily agitated, entitled. He has poor judgement and impulse control. P.: monitor for safety, monitor meds intake, coordinate with [facility] CASSID[facility]; follow care plan.
--- NOTE | 2016-09-05 14:58 | PROG NOTE ---
[address] [address] PROGRESS NOTE PATIENT: WILFRED HERNANDEZ : 1985 MR#: [id number] ADMIT: 09/03/2016 JOB ID: [id number] DATE: CHIEF COMPLAINT: "I will take pills." This is per patient report. HISTORY OF PRESENT ILLNESS: As stated above, the patient did meet with myself in the Day Area and was willing to walk back to the seclusion area with administration of medications. He continues be loose, disorganized and needs redirection. He became rapidly delusional, some sexually provocative statements were made to myself with staff present. The patient was agreeable to administer medications including doses of Haldol 10 mg, Zyprexa 10 mg, Benadryl and Ativan. OBJECTIVE: On mental status exam, the patient was loose, disorganized, responding to internal stimulus and showing significant agitation throughout. His speech was of adequate tone but continues to be mildly pressured on interaction. His mood is described is euphoric/dysphoric. His affect is irritable, labile. His thought process shows evidence of some loose and disorganized thinking. He was tangential. He denied any evidence of suicidal or homicidal ideation. He appears to be responding to internal stimulus and evidence of thought blocking. He was alert, disoriented to situation. Insight and judgment were deemed poor. PHYSICAL EXAMINATION: Vital signs are current. Temperature was 36.1 pulse 94, respirations 18, BP 118/75. MEDICATION REVIEW: Includes: 1. Zyprexa injection 10 mg q.6 p.r.n. 2. Ativan injection 2 mg q.4 h. p.r.n. 3. Haldol injection 10 mg q.4 h. p.r.n. 4. Benadryl 50 mg q.4 h. p.r.n. IM. 5. Risperdal 4 mg q.h.s. 6. Depakote 2000 mg q.h.s. 7. Haldol 10 mg q.4 h. p.r.n. p.o. 8. Ativan 1 mg q.4 h. p.r.n. p.o. 9. Vistaril 50 mg q.4 h. p.r.n. for anxiety and agitation. ASSESSMENT: AXIS I: 1. Schizoaffective disorder, bipolar variant. Most recent episode manic with psychotic features. 2. Methamphetamine use disorder. 3. Cannabis use disorder. AXIS II: Antisocial personality disorder. AXIS III: None. AXIS IV: Stressors are noted for chronic mental health issues, chronic substance abuse. AXIS V: GAF: Current 20. PLANS: 1. Recommendations for revision of orders for both p.o. and IM Haldol 10 mg q.4 h., Ativan 2 mg q.4 h. p.o. or IM and Zyprexa 10 mg p.o. or IM q.6. 2. Continuation of scheduled doses of Risperdal, Depakote. 3. Initiation of Restoril 30 mg q.h.s. 4. Continuation of seclusion as needed based on the patient's significant elevation of imminent threat of danger to others.
[2016-09-05] MEDS: Divalproex (QD) 500 mg ER24 Tablet PO SCH (18:00)
[2016-09-05] MEDS: risperiDONE 2 mg Tablet PO SCH (20:18)
--- NOTE | 2016-09-05 20:56 | NUR ---
Obs Dayshift Pt was on the phone, pacing, loud and demanding in the early half of the shift. Mumbling, making rude and threatening comments to peers. Pt went into seclusion and slept at first. When he woke he would make threatening statement to staff, challenging, sexually inappropriate, yelling, posturing gestures. "Let me out of here and I'll kick your ass" "I didn't do anything to be put in here and I refuse to sign your fucking paperwork" referring to the Behavioral Contract to not threaten staff or peers, to nt hurt himself, etc. Pt received a snack and after when he learned that he would not be getting out he threw his garbage around the room, spitting on the door, window and renee, then again threatening the 1:1 outside the door. Every hour RN checks in on him and he continues with uncontrolled, loud, aggressive, sexually inappropriate behavior. Unsafe for Patient, Staff and Peers. Multi bathroom breaks, snacks and 100% of meals
--- NOTE | 2016-09-06 02:43 | NUR ---
Observations 1900 to 0700 Pt has been in seclusion science my shift started. pt has declined to sign a behavior contract the entire night.
--- NOTE | 2016-09-06 04:24 | NUR ---
Nursing Note [id number] Pt in seclusion upon arrival to unit and has remained there. Pt c/t refuse signing the behavior contract stating "Fuck you and not willing to acknowledge behavior. Pt c/t state "I didn't do anything, Im not signing that". Pt was compliant with HS meds and has been sleeping most of shift. 1:[address], no distress noted. Will c/t debrief with Pt and offer behavior contract to sign
--- NOTE | 2016-09-06 04:38 | NUR ---
Observations 1900 to 0700 Pt was in seclusion when the shift started. mortgage loan underwriter has been 1:1 for pt and he was observed at all times. Pt has been uncooperative and refused to sign a behavior contract several times throughout the night. when pt is approached he continues to curse at staff. Pt is unpredictable, labile and disheveled. Pt speech and eye contact was poor. Pt was observed every 15 minutes throughout the shift as ordered. Pt signed behavior contract at 5:25 and pt went back to room 230 seclusion ended at 5:30. 1:1 continued for the time being to access his behavior.
[2016-09-06] MEDS: LORazepam 1 mg Tablet PO PRN ×2 (05:33→16:37)
--- NOTE | 2016-09-06 05:42 | NUR ---
Seclusion Ended - Seclusion ended 30, Pt stated he was ready to go back to his room and sign the behavior contract. Pt used the BR and ate snack in the milieu. PRN offered and accepted. Pt given 2mg Ativan and Nicorette lozenge. Pt cooperative and currently in bed
--- NOTE | 2016-09-06 13:05 | PROG NOTE ---
[address] [address] PROGRESS NOTE PATIENT: WILFRED HERNANDEZ : 1985 MR#: [id number] ADMIT: 09/03/2016 JOB ID: [id number] DATE: 09/06/2016 CHIEF COMPLAINT: "I really want to go back to the [facility], my sister said that she would be visiting every weekend." This per patient report. HISTORY OF PRESENT ILLNESS: As stated above, the patient did admit to a significant willingness to return to the [facility], his current fpc placement. He indicated that he does recall the circumstances that led to his initial admission of this current presentation and identified that he had been using marijuana that was provided to him by friends at his current fpc setting. I did inform him that he did test positive for methamphetamine as well and the patient became quite agitated indicating that he had no clue or awareness. He reportedly readily identified that he is hopeful that his placement of [facility] will allow him to retain contact with his sister who is currently living in [place]. He stated that he has a strong desire to reconnect with her and states that he needs to be back in the fpc so that she can reconnect. He did identify that he has no intent on hurting or harming anyone on the unit and became quite tearful in discussing the current factor that many times when he escalates with his voice that he does present to be very threatening. The patient states that he has never hurt anyone and that it is not his intent. He continues to ramble at length and appeared to gain insight into the understanding that he needs to present in a more appropriate and calm manner. The patient did agree to his current medication interventions stating that he knows that he needs to cooperate with medication administration. He reportedly has been seen on the Day Area and acting more appropriately and with more appropriate boundaries. OBJECTIVE: On the mental health examination, he was much more cooperative and compliant. He was able to track and follow and was apologetic about his previous behaviors. His speech was of normal tone, frequency and volume until he escalated with the point of review of yesterday. He was able to retract and apologize post. His mood is neutral. His affect is much more congruent. His thought process shows some evidence of tangential thought but he is much more cohesive and coherent. His thought content, he denied any evidence of current suicidal or homicidal ideation. He was alert, oriented to time and place. His attention and concentration were intact. His memory was notably intact. His insight and judgment were gaining. PHYSICAL EXAM: Vital signs are current. Temperature was 38.2, pulse 123, respirations 18, BP 142/100. MEDICATION REVIEW: Includes: 1. Risperdal 4 mg q.h.s. 2. Depakote 2000 mg q.h.s. 3. Invega Sustenna, last injection last Sunday, 156 mg daily. 4. Restoril 30 mg q.h.s. 5. He reportedly has received p.r.n. medication administration of Haldol, Ativan, Benadryl and Zyprexa over the past 24 hours. ASSESSMENT: AXIS I 1. Schizoaffective disorder, bipolar variant. 2. Polysubstance use disorder, most recent positive tox screen for methamphetamine and THC. AXIS V Global assessment of functioning of current 25. PLAN: 1. Recommendations for continuation of all medications noted. 2. Recommendations for probable discharge tomorrow with return of continuation of services with PACT team fpc placement. 3. Recommendations for continuation of all medications noted.
[2016-09-06 13:47] VITALS: BP 136/94; PULSE 110; RESP 16
[2016-09-06] MEDS: diphenhydrAMINE 25 mg Capsule PO PRN (14:44)
--- NOTE | 2016-09-06 17:32 | NUR ---
Nursing Dayshift: S: "This is one of the worst days of my life. Not thee worst but one of the worst." O: Patient has been out of his room latter AM and through the rest of this shift thus far. Napped after breakfast. Has been interacting with select peers. Ambulating the bardales within the preset boundaries. Eating well at meals. Made the above statement mid afternoon when requesting Benadryl which he received 50 mg PO at 1444 with fair response per patient. A: Blunted affect. Med compliant. P: CPOC. Monitor mood and behavior.
--- NOTE | 2016-09-06 17:42 | NUR ---
spiritual care: pt animated, asked for conversational attention pt presented his spiritual distress in breathless manner "I want Buddha, are you caodaism? do you know igor benavides (caodaism instructional writer)" "i prayed to Jose G, but i call him bad names, he never helps" conversational visit with another pt in common room, expressed interest in religions, sacred texts, and spirituality. Requested book or access to caodaism teachings. I provided a basic article by igor benavides
--- NOTE | 2016-09-06 17:58 | NUR ---
[facility] Day Shift Pt maintained behavioral control throughout the shift. Pt affect appears mostly flat in the AM, brighter as the shift progresses. Pt spends most of the AM resting in his room, becoming more active on the unit as the shift progresses. Pt participates actively in unit activities throughout the shift. Pt is appropriate with staff and peers when active on the unit. Pt attended all meals and ate approx 100% of all meals.
[2016-09-06] MEDS: Divalproex (QD) 500 mg ER24 Tablet PO SCH (20:13)
[2016-09-06] MEDS: risperiDONE 2 mg Tablet PO SCH (20:16)
--- NOTE | 2016-09-07 03:56 | NUR ---
Nursing Note [id number] Pt up on unit upon arrival to unit. Pt affect flat but did appear to brighten when discussing DC tomorrow. When questioning where he would be going pt stated" Im going to a prison house where they love me and think I'm great then I won't have to be mean to you guys anymore". pt was compliant with HS meds and took PRN Vistaril. Pt noted asleep 2114 and has had 7 hr uninterrupted sleep since. Q15 min safety checks per protocol TM sleep, safety, behavior
--- NOTE | 2016-09-07 04:01 | NUR ---
nursing, nights, 11-7 s/o- has appeared to sleep after 2114 during q 15 minute assessments. a- no apparent distress. p- monitor behavior/emotional state, quality, times and amount of sleep, use and effect of medication. nalini
[2016-09-07] MEDS: LORazepam 1 mg Tablet PO PRN (05:09)
--- NOTE | 2016-09-07 05:14 | NUR ---
Pt out on unit much of evening. Showered and interacted with peers throughout evening. Asleep at 5. Pt observed every 15 minutes as ordered
[2016-09-07 09:17] LABS: Bilirubin, Direct 0.2 mg/dL (0.0-0.3)
[2016-09-07] MEDS ORDERED: Lactulose 20 Gm/30 mL 30 mL Syrup PO SCH (10:05)
--- NOTE | 2016-09-07 10:08 | PCM.DIMED ---
Discharge Instructions Date of Service Sep 07, 2016 Dates of Hospitalization Sep 03, 2016 at 15:08 Discharge Diagnosis Discharge Diagnosis Schizophrenia, Paranoid Methamphetamine Use DO Diet No restrictions Activity No restrictions Omar Tate DO Sep 07, 2016 10:08
[2016-09-07] MEDS ORDERED: LACT10SO60 PO (10:10)
[2016-09-07] MEDS ORDERED: PALI156D IM (10:10)
--- NOTE | 2016-09-07 12:13 | DIS ---
[address] [address] DISCHARGE SUMMARY PATIENT: WILFRED HERNANDEZ : 1985 MR#: [id number] ADMIT: 09/03/2016 JOB ID: [id number] DIS: 09/03/2016 ADMITTING DIAGNOSES: AXIS I: 1. Schizoaffective disorder, bipolar type. Most recent episode manic with psychotic features. 2. Psychotic disorder, not otherwise specified, substance induced. 3. Methamphetamine and cannabis use disorder. AXIS II: Antisocial personality disorder. AXIS III: None. AXIS IV: Stressors are noted for chronic mental health issues, noncompliance and significant substance abuse. AXIS IV: Global Assessment of Functioning: Current 20. DISCHARGE DIAGNOSES: AXIS I: 1. Schizoaffective disorder, bipolar type. Most recent episode manic with psychotic features. 2. Psychotic disorder, not other specified, substance induced. 3. Methamphetamine and cannabis use disorder. AXIS II: Antisocial personality disorder. AXIS III: None. AXIS IV: Stressors are noted for chronic mental health issues, noncompliance and significant substance abuse. AXIS V: Global Assessment of Functioning: Current 45. REASON FOR ADMISSION: The patient was a well-known 31-year-old male, admitted with significant altered mental status, psychoses, delusions, paranoia and significant agitation. He reportedly tested positive for both methamphetamine and cannabis. HOSPITAL COURSE: During the course of hospitalization, the patient was medicated with high end doses of Zyprexa, Haldol and Ativan, and eventually stabilized within the first 48 hours. He openly identified on day three that he had been under the influence but was unaware that he had actually used marijuana that potentially was cut or laced with methamphetamine. During the hospital course, the patient was agreeable to cooperate with medications after interventions of seclusion and agreement to sign a behavioral contract. Throughout hospital course, patient continued on his doses of Depakote. Laboratory data was collected including updated ammonia level, which was elevated at 90. Initiation of lactulose followed. His valproic acid level was 54 on the day of discharge, and LFTs were all within normal range. CONDITION AT TIME OF DISCHARGE: The patient was cooperative, polite. He openly identified the above substance abuse patterns and indicated that he is going to be much more selective. MENTAL STATUS EXAMINATION: His speech was of normal tone, frequency, and volume. His mood was neutral. Affect was elevated to some degree. His thought process showed no evidence of racing thoughts, loose or disorganized thinking. His thought content, he denied any evidence of current suicidal or homicidal ideation. He continues to have evidence of visual hallucinations and has tracking throughout the course of conversations. He was alert, oriented to time and place. Insight and judgment are deemed poor. PLANS: 1. Recommendations to discharge to the care of the pact team with return to [facility]. 2. Recommendations for follow up injections of Invega Sustenna on October 04, 156 mg. No prescription was given. 3. Continuation of Depakote 2000 mg q.h.s. No prescription given. 4. Recommendations for continuation of Risperdal 4 mg q.h.s. with noted discontinuation at his next Invega shot. 5. Continuation of lactulose 20 b.i.d. 1 month supply, no refills, with followup laboratory data including ammonia levels recommended in approximately one month. 6. Recommendations for future interventions to include possible detox referrals through the emergency department or alternative sectors were presented to the treatment team. Discussion was held with the freelance court reporter officers of potential diversion in the future to access a chemical dependency dual diagnosis unit based on the patient's longevity and noted usage of substances. However, final judgment will follow.
[2016-09-07] MEDS: diphenhydrAMINE 25 mg Capsule PO PRN (12:22)
--- NOTE | 2016-09-07 14:07 | NUR ---
Nursing Discharge Note: Patient cooperative with discharge process. Acknowledges understanding of d/c instructions and has a copy with them upon leaving unit at 1405. Belongings accounted for and with patient. Prescriptions faxed to patients pharmacy at [place]. Patient denies harmful thoughts and hallucinations at this time. Left unit with PACT JESSI Alexis.
== END 2016-09-07 14:05 | disposition home or self-care (01) | DRG 750 ==
LOC: SED 05:49 → MHC 15:08
PROVIDERS: ADMIT Psychiatry & Neurology Psychiatry; ATTEND Psychiatry & Neurology Psychiatry
DX: F25.0 Schizoaffective disorder, bipolar type (principal); F12.90 Cannabis use, unspecified, uncomplicated; F19.259 Other psychoactive substance dependence with psychoactive substance-induced psychotic disorder, unspecified; F60.2 Antisocial personality disorder; F15.90 Other stimulant use, unspecified, uncomplicated

== ENCOUNTER 2016-09-08 15:17 | Emergency (ER) | payer MEDICAID, OTHER ==
[~2016-09-08] VITALS: Ht 182.9 cm; Wt 115.9 kg
[~2016-09-08 15:17] MED LIST changes: -HYDR50CA3 PO; +LACT10SO60 PO
[2016-09-08 15:32] VITALS: BP 157/97; PULSE 98; RESP 16; O2SAT 98
--- NOTE | 2016-09-08 17:02 | ED.REPORT ---
HPI-Psychiatric Illness Date of Service Sep 08, 2016 ED Provider: Dona Solitario History of Present Illness: Has TMJ wanting surgery eating chips, doritos. no primary care. On going since his was 12. patient denies SI or HI However, appears to be unable to care for self, he has rambling speech, is redirectable but has a great deal of difficulty processing inforamtion that is provided to him. has frequent requests to leave. Nursing Notes Stated Complaint: MENTAL HEALTH Chief Complaint: Psychiatric Complaint Nursing Notes Reviewed: Yes Allergies: Coded Allergies: cefaclor (Verified Allergy, Unknown, 07/11/16) Pt states he does not know his reaction. Parents told him he was allergic to this med. prednisone (Verified Allergy, Unknown, 07/11/16) sulfamethoxazole (Verified Allergy, Unknown, 07/11/16) Pt does not know reaction. His parents told him. trimethoprim (Verified Allergy, Unknown, 07/11/16) Pt does not know reaction. His parents told him. Scheduled Divalproex ER (Divalproex ER) 500 Mg Tab.er.24h 2,000 MG PO HS Lactulose (Lactulose) 20 Gm/30 Ml Solution 20 GM PO BID Paliperidone Palmitate Inj (Invega Sustenna) 156 Mg/1 Ml Syringe 156 MG IM Q30D Risperidone (Risperdal) 2 Mg Tablet 4 MG PO HS General Time Seen by MD: 17:01 Chief Complaint Bizarre behavior, Other (TMJ) Hx Obtained From: Patient Risk-Psychiatric Illness Risk Notes: patient unable to answer, review of records indicate he has had prior psych admissions Suicide Risk Stratification RF Statements: Risk factors reviewed Past Medical History Past Medical History Schizoaffective disorder, bipolar variant. Polysubstance use disorder. Depression Anxiety Past Surgical History none reported Smoking History Current Every Day Smoker Social History methamphetamine use in past Drug Use: THC Other Social History: Local resident Occupation states lives in [place] 09/08/2016 Ambulatory Status Independent Review of Systems Basic Review of Systems Eyes: Vision NL, No discharge ENT: Hearing NL, No pain, No nasal congestion, No pharyngeal pain : No dysuria, No frequency Musculoskeletal: No extremity swelling, No extremity pain, Full range of motion , Joints NL Hematologic: No bleeding, No bruising Endocrine: No cold intolerance, No heat intolerance, No weight gain, No weight loss Allergy / Immune: No allergy Physical Exam Initial Vital Signs Vital Signs (First) Date Time Temp Pulse Resp B/P Pulse Ox O2 Delivery O2 Flow Rate FiO2 09/08/16 15:32 37 98 16 157/97 98 Room Air Initial VS: Reviewed, Vital signs normal Head / Eyes: Atraumatic, Normocephalic, PERRL ENT: Mucous membranes moist, Conjunctiva normal, No scleral icterus Neck: Supple, Non-tender, Full range of motion Respiratory: Breath sounds normal, Clear to auscultation, No respiratory distress Cardiovascular: Regular rate & rhythm, Heart sounds normal, Intact distal pulses Abdomen / GI: Soft, Non-tender, No guarding, No rebound, No distention Back: No CVA tenderness Lymphatic: No lymphadenopathy Extremities: Vascular intact, Neuro intact, No swelling, No tenderness Skin: Warm, Dry, No cyanosis General/Constitutional: Awake, Alert, No acute distress, Well appearing, Well developed, Well hydrated Neurologic: Oriented X3, Speech NL, No motor deficits Abnormal Thinking / Perception: Positive: Flight of ideas, Insight abnormal, Judgment abnormal, Tangential thinking Head / Eyes: Atraumatic, Normocephalic, PERRL, EOMI ENT: Atraumatic, Airway patent, Mucous membranes moist Respiratory / Chest: Atraumatic, Breath sounds NL, Breath sounds = bilat, No respiratory distress Cardiovascular: Heart rate NL, Regular rhythm, Heart sounds NL, No gallop Abdomen: Atraumatic, Soft, Non-tender, McBurney's non-tender Interpretation & Diagnostics Lab Results Interpretation Test 09/08/16 17:03 Hold Urine Received (Received) Re-Eval/Medical Decision Med Decision/Clinical Course Patient given haldol, ativan and benadryl in attempt to stablize him. Social work will need to evualate him in the AM. Patient requesting to go to [place]. Patient's sister arrives after patient called her to take him to the house. Socail worker has a call to the house and it appears "it is not a good fit" Social work has a phone call to correctional counselor/case manager and is awaiting return phone call. At this time 2126, it appears patient will be spending the evening for possible admission in the morning. Discharge & Departure Impression: Primary Impression: Schizophrenia Schizophrenia type: unspecified Qualified Code: F20.9 - Schizophrenia, unspecified Referrals: NOPCP (PCP) EDSupervising Provider for APC: Zaire Ordaz MD, Sue ARNP Sep 08, 2016 17:02
[2016-09-08] MEDS ORDERED: Ketorolac 30 mg/mL 2 mL Inj IM ONE (17:15)
[2016-09-08] MEDS ORDERED: Haloperidol 5 mg/mL Inj IM STA (18:36)
--- NOTE | 2016-09-08 21:16 | NUR ---
Vitals Vital signs not obtained at this time. Pt was a recent code clement. Pt's sister here to provide support. Pt agreed to take a blanket. He appears drowsy. Plan to request VS from pt in one hour. Sister agrees to stay until this request is made to provide support
--- NOTE | 2016-09-08 22:29 | NUR ---
Behavior Pt woke up easily. Sister came in room with RN along with guardian ad litem Pt agreed to have his VS taken. Pt then got up and used the bathroom. Steady gait. Currently speaking with social sciences chair. Security with pt and social sciences chair along with pt's sister. Care ongoing
[2016-09-08 22:35] VITALS: BP 106/65; PULSE 83; RESP 20; O2SAT 98
[2016-09-09 06:13] VITALS: BP 132/86; PULSE 86; RESP 18; O2SAT 98
[2016-09-09] MEDS ORDERED: Haloperidol 5 mg/mL Inj IM ONE (07:20)
[2016-09-09] MEDS ORDERED: LORazepam 2 mg Tablet PO ONE (10:35)
[2016-09-09] MEDS ORDERED: OLANZapine Zydis ODT 5 mg Tablet PO ONE (10:35)
[2016-09-09 12:17] LABS: BASOPHILS % (AUTO) 0.2 % (0-3); EOSINOPHILS % (AUTO) 3.1 % (0-5); MONOCYTES % (AUTO) 9.7 % (4-12); Mean Corpuscular Hemoglobin 28.8 pg (27.0-35.0); Mean Corpuscular Volume 83.6 fL (81-100); NEUTROPHILS % (AUTO) 61.5 % (40-74); Platelet Count 207 bil/L (150-400)
[2016-09-09 12:32] LABS: INR 0.98 ratio
[2016-09-09 13:33] VITALS: BP 133/71; PULSE 100; RESP 20
[2016-09-09 13:58] LABS: APPEARANCE,URINE CLEAR (CLEAR,HAZY); COLOR,URINE YELLOW (YELLOW); OCCULT BLOOD,URINE NEGATIVE (NEGATIVE); PH,URINE 7.5 (5.0-8.0); UROBILINOGEN,URINE NORMAL (NORMAL)
== END 2016-09-09 17:15 | disposition home or self-care (01) ==
LOC: SED 15:17
DX: F25.0 Schizoaffective disorder, bipolar type (principal); M26.609 Unspecified temporomandibular joint disorder, unspecified side; F17.200 Nicotine dependence, unspecified, uncomplicated; Z73.89 Other problems related to life management difficulty; Z88.1 Allergy status to other antibiotic agents; Z88.8 Allergy status to other drugs, medicaments and biological substances; Z88.2 Allergy status to sulfonamides
CPT/HCPCS: 36415; 80053; 81000; 82075; 82140; 85025; 85610; 96372; 99285; J1200; J1630; J2060

== ENCOUNTER 2016-09-25 13:37 | Inpatient (IN) | payer OTHER ==
[~2016-09-25] VITALS: Ht 185.4 cm; Wt 100.0 kg
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
[2016-09-25 14:23] VITALS: BP 153/98; PULSE 90; RESP 18; O2SAT 98
[2016-09-25 18:13] VITALS: BP 106/71; PULSE 68; RESP 20; O2SAT 100
[2016-09-25] MEDS ORDERED: Haloperidol 5 mg/mL Inj IM ONE (19:45)
[2016-09-25 20:13] LABS: BASOPHILS % (AUTO) 0.4 % (0-3); EOSINOPHILS % (AUTO) 2.1 % (0-5); MONOCYTES % (AUTO) 12.1 % (4-12); Mean Corpuscular Hemoglobin 29.1 pg (27.0-35.0); NEUTROPHILS % (AUTO) 46.7 % (40-74); Platelet Count 196 bil/L (150-400)
[2016-09-25 20:31] LABS: INR 0.94 ratio
[2016-09-25 20:58] VITALS: BP 123/68; PULSE 81; O2SAT 98
[2016-09-25 22:37] VITALS: BP 139/80; PULSE 85; O2SAT 99
--- NOTE | 2016-09-25 23:36 | NUR ---
ER Seclusion Pt was scheduled for a blood draw so lab came down escorted by security. We attempted to get him to let the lab draw blood but he was just messing around with them and being very inappropriate so they walked out and pt started getting agitated. He began yelling at the phlebotomists, so they left but security stuck around since he was getting more angry and hostile. The door was closed and pt stood at the door yelling rude and derogatory comments, racial slurs at staff (repeatedly using the N word, calling one of the security guards a beaner, yelling bitch, saying the security guards were going to rape me etc.) He was trying to elicit a reaction out of staff but wasn't getting one so he became increasingly upset and began screaming and then proceeded to punch and kick the door really hard so a becky clement was called at 194. Staff came to assist, he was placed on a hospital bed and he was put in 4 point restraints at 1999.
[2016-09-26] MEDS ORDERED: Magnesium Hydroxide 10 mL Oral Concentration PO PRN (00:55)
[2016-09-26] MEDS ORDERED: Alum-Mag Hydrox-Simeth 30 mL Suspension PO PRN (00:55)
[2016-09-26] MEDS ORDERED: Benzocaine-Menthol Lozenge 2/Pkg PO PRN (00:55)
--- NOTE | 2016-09-26 01:12 | NUR ---
Observations 1900 to 0700 Pt arrived on the floor at 22:50 and was not able to partake in any of the intake process. Pt has been in his room ever since.
--- NOTE | 2016-09-26 02:24 | NUR ---
New Admit Detained on revocation of 90 LR. MATA @ 2220. Pt had been out of 4 point restraints for over an hour before coming onto the unit. He was sedate from receiving Haldol 5mg/Ativan 2mg IM in the ED. Unable to participate in admission process. He has remained asleep since arriving on the unit. He was revoked for poor compliance and threatening self & others. Addendum: 09/26/16 at 0535 by BIANKA GALLARDO RN Adequate sleep. He has remained asleep since admission with over 6 hours sleep.
[2016-09-26] MEDS: LORazepam 2 mg Tablet PO PRN ×2 (06:39→15:38)
[2016-09-26] MEDS ORDERED: risperiDONE 2 mg Tablet PO SCH ×2 (08:30→21:00)
--- NOTE | 2016-09-26 14:19 | NUR ---
Nursing; Day shift 929. Emery accepted Risperdal 2 mg po. Questioned getting it in morning but took it. 934 Running down bardalse beyond dining room toward security staff outside court room. Pt was told to back off and did so. 936 Emery again ran toward security staff. Jumped up and hit tile on ceiling as he ran. Came to a stop right over staff, face inches from staff face. Security staff told Emery to back away. Pt initially refused. Another staff intervened verbally and Emery moved. 937 Code Mccarthy called [id number] Order received for restraints. 941 Restraints applied. Emery walked to room with show of force. At time of being told to lie on bed for restraints to be applied, Emery did not move. Hands on were applied by security staff, Emery was put on bed. Four limbs were restrained to bed as pt attempted to kick and struggle. Emery complained You are hurting my collar bone. Staff moved hand to arm, Emery lashed at staff with locked restraint scraping skin and making noticeable reddened area on staffs right hand. After restraints applied, Emery shouted and then lay back on bed. Pt debriefed that he cannot be out on unit if he threatens harm to others. 1000. First 2 hour assessment done. Stated that he has No Idea why he is in restraints. Did not acknowledge that his behavior on unit had been threatening. Shows no insight into reason for restraint and what appropriate behavior on unit shows danger to staff or peers. 1200: Second two hour assessment. At 1115, psychiatrist and immigration case manager were in to assess patient. At 1135, pt was trying to engage staff with inappropriate comments. "Hi [facility]. Where do you live?" Pt debriefed about need to not be threatening toward staff. 1245. Pt requested to use the BR. Security staff assisted with release of right upper extremity to use urinal. Pt cooperated with process. Urinated 400 ml. Banging head on wall. Mattress repositioned to not allow him to bang head on wall. continued to bang arm against side of bed. 1315. Pt states he needs to have a bowel movement. Facilitated with show of force and a bedpan. Two point restraints reapplied. Currently restraints are on right arm and left leg. 1320: Pt shouting at observation staff. Making sexual inappropriate what if statements to staff. Shouting " why are you looking at me?" At 1330 the patient managed to lunge and throw body over the side of the bed where his arm was restrained. 1340: Code racquel called and 4 point restraint reapplied. New order obtained for restraint due to pt threatening/inappropriate behavior. 1400 Two hour assessment. Pt remains hollering at staff. Pt debriefed again. Note: Circulation checks and range of motion have been done systematically throughout the restraint process. Addendum: 09/26/16 at 1826 by MARY DELGADO RN Nursing. Day shift continued. Also Discharge note. 1600. Within the last 2 hours, Emery was hollgilson, was moving his body on the mattress to make the mattress go half off the bed. He beat his arm with the restraint against the wall until the plaster came off the wall in the area he was hitting. He hit his knuckles on right hand against the wall until they were red and had one small abrasion about 1 cm diameter on the posterior of his hand. Pt voided 400 ml again. He received a sandwich snack. Restraints were removed at 1653. He dressed himself and left the unit with belongs accompanied by security staff and the commercial front load driver. He was to return to [facility].
[2016-09-26] MEDS ORDERED: Paliperidone Palmitate 156 mg/mL Inj (NC) IM SCH (16:00)
--- NOTE | 2016-09-26 16:12 | PCM.DIMED ---
Discharge Instructions Date of Service Sep 26, 2016 Dates of Hospitalization Sep 25, 2016 at 22:31 Discharge Diagnosis Discharge Diagnosis AXIS I: 1. Schizoaffective disorder, bipolar type, in early remission. 2. Cannabis use disorder 3. Methamphetamine use disorder, in early remission. AXIS II: Antisocial personality disorder. AXIS III: None. AXIS IV: Stressors are noted for chronic mental health issues, medication nonadherence, and significant substance use disorder. AXIS V: Global Assessment of Functioning: Current 45. Test Results Laboratory Tests 72 Hours Test 09/25/16 14:59 09/25/16 20:00 09/26/16 12:28 Hold Urine Received (Received) White Blood Count 10.6th/mm3 (3.8-10.1) Red Blood Count 5.61mil/mm3 (4.40-5.80) Hemoglobin 16.3g/dL (13.8-17.2) Hematocrit 47.7% (41.0-50.0) Mean Corpuscular Volume 85.0fL (81-100) Mean Corpuscular Hemoglobin 29.1pg (27.0-35.0) Mean Corpuscular Hemoglobin Concent 34.2% (32.0-37.0) Red Cell Distribution Width 13.5% (12.3-15.4) Platelet Count 196bil/L (150-400) Neutrophils (%) (Auto) 46.7% (40-74) Lymphocytes (%) (Auto) 38.2% (14-46) Monocytes (%) (Auto) 12.1% (4-12) Eosinophils (%) (Auto) 2.1% (0-5) Basophils (%) (Auto) 0.4% (0-3) Prothrombin Time 10.0sec (8.1-12.5) Prothromb Time International Ratio 0.94ratio Sodium Level 144mEq/L (134-144) Potassium Level 3.7mEq/L (3.5-5.2) Chloride Level 103mEq/L (97-108) Carbon Dioxide Level 17mmol/L (18-29) Blood Urea Nitrogen 13mg/dL (6-20) Creatinine 0.82mg/dL (0.76-1.27) Estimat Glomerular Filtration Rate 117mL/min (>59) Glucose Level 90mg/dL (60-99) Calcium Level 9.4mg/dL (8.5-10.1) Total Bilirubin 0.6mg/dL (0.0-1.2) Aspartate Amino Transf (AST/SGOT) 20U/L (0-50) Alanine Aminotransferase (ALT/SGPT) 23U/L (0-44) Alkaline Phosphatase 55U/L (25-150) Total Protein 7.2g/dL (6.4-8.4) Albumin 4.3g/dL (3.4-5.0) Thyroid Stimulating Hormone (TSH) 1.040uIU/mL (0.450-4.500) Hold Aguilar Top Tube Received (Received) Valproic Acid (Depakene) Level 84ug/mL (50-125) Diet No restrictions Activity No restrictions Patient Instructions Should you have any thoughts of harming yourself or others, please call the crisis line, your provider/PACT team, 911, or go to the nearest Emergency Department. Do not change or discontinue your medications without discussing with your provider. You have been given the bubble pack of your evening medication. Follow-up plan PACT team will see you tomorrow. Additional instructions per counselor and nursing. Discuss with your provider adjusting your oral risperidone now that you are receiving Invega Sustenna. Charbel Sahu MD Sep 26, 2016 16:12
--- NOTE | 2016-09-26 18:34 | NUR ---
Case Management/Counseling: S: "I only get sleep when I'm here." O: Patient slept 6+ hours last night per staff. He denies S/I and H/I. He also denies auditory and visual hallucinations. Depression is 0/10 and anxiety is 0/10. Out-patient appointment: Clark Sands, PACT counselor, [facility], 09/29/16 at 2:20pm. A: Patient is unkept, guarded, restricted affect, limited insight, poor judgment. P: Follow care plan, coordinate discharge with PACT Team. Addendum: 09/26/16 at 1907 by [place] LATIF [facility] Patient stated that he has several outstanding warrants. This service writer spoke with Officer Xin of [place] [employer] to get more information about outstanding warrants. Officer Xin stated that patient does not have any outstanding warrants in [facility] or [facility], per their information/system check.
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
[2016-09-26] MEDS ORDERED: Divalproex (QD) 500 mg ER24 Tablet PO SCH (21:00)
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
== END 2016-09-26 17:05 | disposition home or self-care (01) | DRG 750 ==
LOC: SED 13:37 → MHC 22:31
PROVIDERS: ADMIT Psychiatry & Neurology Psychiatry; ATTEND Psychiatry & Neurology Psychiatry
DX: F25.0 Schizoaffective disorder, bipolar type (principal); R45.851 Suicidal ideations; Z65.3 Problems related to other legal circumstances; F17.210 Nicotine dependence, cigarettes, uncomplicated; F60.2 Antisocial personality disorder; F12.10 Cannabis abuse, uncomplicated; F15.10 Other stimulant abuse, uncomplicated

== ENCOUNTER 2016-11-09 15:37 | Emergency (ER) | payer OTHER ==
[~2016-11-09] VITALS: Ht 182.9 cm; Wt 113.6 kg
[~2016-11-09 15:37] MED LIST changes: -LACT10SO60 PO
[2016-11-09 15:41] VITALS: BP 151/96; PULSE 96; O2SAT 100
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
[2016-11-09 16:28] LABS: BASOPHILS % (AUTO) 0.3 % (0-3); EOSINOPHILS % (AUTO) 0.5 % (0-5); MONOCYTES % (AUTO) 9.6 % (4-12); Mean Corpuscular Volume 84.8 fL (81-100); NEUTROPHILS % (AUTO) 67.3 % (40-74); Platelet Count 206 bil/L (150-400)
== END 2016-11-09 17:58 | disposition home or self-care (01) ==
LOC: SED 15:37
DX: F43.0 Acute stress reaction (principal); F25.0 Schizoaffective disorder, bipolar type; F17.200 Nicotine dependence, unspecified, uncomplicated; Z91.5 Personal history of self-harm; Z88.1 Allergy status to other antibiotic agents; Z88.8 Allergy status to other drugs, medicaments and biological substances; Z88.2 Allergy status to sulfonamides

== ENCOUNTER 2016-11-17 08:13 | Emergency (ER) | payer OTHER ==
[~2016-11-17] VITALS: Ht 185.4 cm; Wt 113.6 kg
[2016-11-17 08:16] VITALS: BP 148/101; PULSE 94; RESP 14; O2SAT 98
--- NOTE | 2016-11-17 08:26 | ED.REPORT ---
HPI-Psychiatric Illness Date of Service Nov 17, 2016 ED Provider: Osman Eric MD Pt is a 31 y.o. male with a hx of schizoaffective disorder, polysubstance abuse , anxiety, and depression who presents to the ED seeking medication adjustment. Pt states that he is currently staying in a correction house and is having difficulty sleeping. He would like to be prescribed Seroquel because it "helps regulate his sleep". He is currently a pt under PACT, and they have been notified of his arrival in the ED. Pt endorses to THC use prior to arrival but denies all other drug use. He denies current SI, HI, anxiety, fever, nausea, and vomiting. He does report a sore throat from "years of smoking". He also states his sister has pneumonia. Pt claims he was recently admitted at [facility] and was discharged 2 days ago. Nursing Notes Stated Complaint: PSYCH EVAL Chief Complaint: Psychiatric Complaint Nursing Notes Reviewed: Yes Allergies: Coded Allergies: cefaclor (Verified Allergy, Unknown, 07/11/16) Pt states he does not know his reaction. Parents told him he was allergic to this med. prednisone (Verified Allergy, Unknown, 07/11/16) sulfamethoxazole (Verified Allergy, Unknown, 07/11/16) Pt does not know reaction. His parents told him. trimethoprim (Verified Allergy, Unknown, 07/11/16) Pt does not know reaction. His parents told him. Scheduled Divalproex ER (Divalproex ER) 500 Mg Tab.er.24h 2,000 MG PO HS Paliperidone Palmitate Inj (Invega Sustenna) 156 Mg/1 Ml Syringe 156 MG IM Q30D Risperidone (Risperdal) 2 Mg Tablet 4 MG PO HS General Time Seen by MD: 08:22 Transferred From: skilled nursing [place] Chief Complaint Other (Adjustment of medication) Hx Obtained From: Patient Arrived By: Walk-in Onset Occurred: Onset unknown Severity: Current: No pain currently Risk-Psychiatric Illness Suicide Risk Stratification Suicide Risk Factors - Adult: : Previous attempt: Prior psych admission: Substance abuse RF Statements: Risk factors reviewed Past Medical History Past Medical History Schizoaffective disorder, bipolar variant. Polysubstance use disorder. Depression Anxiety Past Surgical History none reported Smoking History Current Every Day Smoker Social History methamphetamine use in past. Previous Sucicide attemt via OD. Alcohol Use: "Social" Drug Use: THC Other Social History: Local resident Occupation states lives in [place] 09/08/2016 Ambulatory Status Independent Review of Systems Constitutional: Denies: Fever GI: Denies: Nausea, Vomiting Psychiatric: Denies: Anxiety, Homicidal ideation, Suicidal ideation Complete sys rev & neg: except as marked. Ears / Nose / Throat: Reports: Sore throat Physical Exam Initial Vital Signs Vital Signs (First) Date Time Temp Pulse Resp B/P Pulse Ox O2 Delivery O2 Flow Rate FiO2 11/17/16 08:16 36.2 94 14 148/101 98 Initial VS: Reviewed Head / Eyes: Atraumatic, Normocephalic Abdomen / GI: No distention Extremities: Vascular intact, Neuro intact Skin: Warm, Dry, No cyanosis General/Constitutional: Awake, Alert, Well appearing, Well developed, Well hydrated, Well nourished, Not toxic appearing Behavior: Positive: Agitated Neurologic: Oriented X3 Psychiatric: Not suicidal, Not homicidal Abnormal Mood/Affect: Positive: Inappropriate, Labile, Pressured speech Abnormal Thinking / Perception: Positive: Insight abnormal, Judgment abnormal, Loose associations Respiratory / Chest: Atraumatic, Breath sounds NL, Breath sounds = bilat, No respiratory distress, No stridor Cardiovascular: Heart rate NL, Regular rhythm, Heart sounds NL, Peripheral circulation NL Re-Eval/Medical Decision Source of Hx: Old records Re-Evaluation/Progress #1: Time of Eval: 08:50 Re-Evaluation/Progress Note: Discussed consult with PACT. Re-Evaluation/Progress #2: Time of Eval: 10:18 Re-Evaluation/Progress Note: Pt rechecked. He is asking to leave and states he may call PACT to discuss medication changes. Consultation : Consulted With: cement storage worker Call Returned at: 08:39 Note: Consulted with PACT, on there way to see pt. Counseled Regarding: Diagnosis, When/why to return to ED Discharge & Departure Impression: Primary Impression: Schizophrenia Schizophrenia type: unspecified Qualified Code: F20.9 - Schizophrenia, unspecified )( Condition at Discharge: No danger to self, No danger to others, No suicidal ideation, No homicidal ideation Disposition: Home Discharge Condition All VS Reviewed: Yes Condition: No Change Patient Instructions: Schizophrenia (ED) Additional Instructions: Continue the medications as they have been prescribed. If you want to change her medications, talk to your prescriber. Referrals: [facility] (PCP) Emily Attestation Portions of this note were transcribed by Robert Odom. I, Dr. Eric personally performed the history, physical exam and medical decision-making; I reviewed and confirmed the accuracy of the information in the transcribed note. Signed by: Emily Phelps, 11/17/16 and 1039 Osman Eric MD Nov 17, 2016 08:26 ROBERT ODOM Nov 17, 2016 08:49
== END 2016-11-17 10:31 | disposition home or self-care (01) ==
LOC: SED 08:13
DX: F20.9 Schizophrenia, unspecified (principal); F17.200 Nicotine dependence, unspecified, uncomplicated; Z88.1 Allergy status to other antibiotic agents; Z88.2 Allergy status to sulfonamides; Z88.8 Allergy status to other drugs, medicaments and biological substances

== ENCOUNTER 2016-11-17 21:14 | Emergency (ER) | payer OTHER ==
--- NOTE | 2016-11-17 21:44 | ED.REPORT ---
HPI-Psychiatric Illness Date of Service Nov 17, 2016 ED Provider: Eliud Herrera MD Patient is a 31 year old male with a history of schizoaffective disorder, polysubstance abuse, and depression who presents to the ED via Police seeking medication for sleep following 3 days of insomnia. Patient states that he was released from [facility] 3 days ago and he has not slept since that time. Per Police report the patient admitted to his roommate that he had not slept in 3 days and he had not taken any of his medications. The patient was discussing the possibility of finding knives to harm himself. On arrival to the ED the patient states that he is not sleeping well and "wants to see his friends on the second floor". He lives at a group home house, with "a bunch of crazy people and convicts". He states that it is difficult to sleep there and that he does not have any medications to help him sleep. Patient was seen in the ED this morning due to the same request for Seroquel. His PACT team was contacted but the patient wished to leave the ED before they arrived at the facility. The patient spoke with his PACT team following this visit, who made him an appointment for medication adjustment. The patient admits that he does not know when his appointment is, as he did not look at his appointment card. Seroquel has helped him sleep previously but he states that he became too sedated when he took 600mg daily. He was previously on 200mg while in [facility] in [place], which was several weeks ago. When told that he can be discharged home after receiving medication he states that the patient states that he 'feels down and no one loves me". Patient states that he feels "pedro suicidal" and that he "he pedro wants to grab a gun and shoot himself". But he admits that he will not do so if he is given medication to help him sleep. Patient admits to smoking marijuana daily. He denies other illicit drug use, stating that he has not used methamphetamine for 3 years. Patient denies alcohol use. Nursing Notes Stated Complaint: MENTAL HEALTH Chief Complaint: Psychiatric Complaint Nursing Notes Reviewed: Yes Allergies: Coded Allergies: cefaclor (Verified Allergy, Unknown, 11/17/16) Pt states he does not know his reaction. Parents told him he was allergic to this med. prednisone (Verified Allergy, Unknown, 11/17/16) sulfamethoxazole (Verified Allergy, Unknown, 11/17/16) Pt does not know reaction. His parents told him. trimethoprim (Verified Allergy, Unknown, 11/17/16) Pt does not know reaction. His parents told him. Scheduled Divalproex ER (Divalproex ER) 500 Mg Tab.er.24h 2,000 MG PO HS Paliperidone Palmitate Inj (Invega Sustenna) 156 Mg/1 Ml Syringe 156 MG IM Q30D Risperidone (Risperdal) 2 Mg Tablet 4 MG PO HS General Time Seen by MD: 21:37 Chief Complaint Other (requesting medication for sleep) Hx Obtained From: Patient Arrived By: Police Onset Occurred: 3 days ago Symptom Duration: Since onset Progression Since Onset: Gradually worsening Recent Healthcare: Recent doctor visit, Recent hospitalization Similar Sx Previous: Yes Risk-Psychiatric Illness Suicide Risk Stratification Suicide Risk Factors - Adult: : Previous attempt: Prior psych admission: Substance abuseNo: Alcohol use RF Statements: Risk factors reviewed Past Medical History Past Medical History Schizoaffective disorder, bipolar variant. Polysubstance use disorder. Depression Anxiety Past Surgical History none reported Smoking History Current Every Day Smoker Social History methamphetamine use in past. Previous Sucicide attemt via OD. Alcohol Use: "Social" Drug Use: THC Other Social History: Local resident Occupation states lives in [place] 09/08/2016 Ambulatory Status Independent Review of Systems Constitutional: Denies: Chills, Fever Psychiatric: Reports: Insomnia, Suicidal ideation, Denies: Homicidal ideation Complete sys rev & neg: except as marked. Physical Exam Initial Vital Signs Vital Signs (First) Date Time Temp Pulse Resp B/P Pulse Ox O2 Delivery O2 Flow Rate FiO2 11/17/16 21:52 83 16 115/66 97 Room Air Initial VS: Reviewed, Vital signs normal Head / Eyes: Atraumatic, Normocephalic, PERRL ENT: Conjunctiva normal, No scleral icterus Neck: Supple, Full range of motion Respiratory: Breath sounds normal, Clear to auscultation, No respiratory distress Cardiovascular: Regular rate & rhythm, Heart sounds normal, Intact distal pulses Abdomen / GI: Soft, Non-tender Extremities: Vascular intact, Neuro intact Skin: Warm, Dry, No cyanosis General/Constitutional: Awake, Alert, No acute distress Neurologic: Oriented X3, No motor deficits, No sensory deficits Speech: Positive: Slurred (runs words together, this may be his baseline) Psychiatric: Affect NL Abnormal Thinking / Perception: Positive: Suicidal, no plan (no intent) manipulative angry outbursts, but general mood is not one of anger or depression Interpretation & Diagnostics Lab Results Interpretation Test 11/17/16 21:15 Hold Urine Received (Received) Re-Eval/Medical Decision Med Decision/Clinical Course 31-year-old male who has schizoaffective illness with considerable personality and behavioral factors involved. He is having trouble sleeping the last 3 nights and is not getting along well with his roommates. He requested to be brought to the hospital. He mentions suicidal ideation but is very noncommittal about any intent. What he truly wants his medication for his insomnia. He has used Seroquel effectively in the past, fairly high doses and fairly recently in the [facility]. His case was discussed with his PAC team by the rn social work, Michael. The [facility] report was reviewed. He was given Seroquel 400 mg and a taxi ride back to his apartment. He will follow up with his activities in the morning. He will call or return if he has further problems tonight. Source of Hx: Old records Re-Evaluation/Progress : Time of Eval: 22:00 Patient Status: Condition improved Re-Evaluation/Progress Note: Patient will receive Seroquel in the ED and be discharged in a taxi. Patient understands and agrees with the plan. Discharge instructions and follow-up discussed. All questions were addressed. Return to the ED warnings given. Consultation : Consulted With: sheet metal worker Call Returned at: 21:50 Note: Spoke with the ED PODIATRIC TECHNICIANMichael, who spoke with the patient's PACT team. As long as the patient is not psychotic or suicidal he can be medically cleared and discharged home. He can call the PACT team 24 hours per day for services. PACT team will see him tomorrow. Counseled Regarding: Diagnosis, Need for follow-up, When/why to return to ED Discharge & Departure Impression: Primary Impression: Acute situational disturbance Additional Impression: Insomnia Insomnia type: due to other mental disorder Qualified Code: F51.05 - Insomnia due to other mental disorder )( Condition at Discharge: No danger to self, No danger to others, No homicidal ideation Disposition: Home Discharge Condition All VS Reviewed: Yes Condition: Stable Patient Instructions: Quetiapine (By mouth) Additional Instructions: Continue your ongoing outpatient counseling with the PACT team. Seroquel 400 mg tonight for sleep and then follow up as planned tomorrow. Call the PACT team if you have any concerns tonight. Referrals: [facility] Attestation Portions of this note were transcribed by Ricarda Bird. I, Dr. Herrera personally performed the history, physical exam and medical decision-making; I reviewed and confirmed the accuracy of the information in the transcribed note. Signed by: Emily Floyd, 11/17/2016 2303 Eliud Herrera MD Nov 17, 2016 21:44 Ricarda Bird Nov 17, 2016 21:53
[2016-11-17 21:52] VITALS: BP 115/66; PULSE 83; RESP 16; O2SAT 97
[2016-11-17 23:02] VITALS: BP 115/66; PULSE 83; RESP 16; O2SAT 97
== END 2016-11-17 23:03 | disposition home or self-care (01) ==
LOC: SED 21:14
DX: F43.22 Adjustment disorder with anxiety (principal); F51.05 Insomnia due to other mental disorder; F17.200 Nicotine dependence, unspecified, uncomplicated; Z88.8 Allergy status to other drugs, medicaments and biological substances; Z88.2 Allergy status to sulfonamides

== ENCOUNTER 2017-03-21 13:28 | Emergency (ER) | payer OTHER ==
[2017-03-21 13:36] VITALS: BP 144/88; PULSE 92; RESP 20; O2SAT 98
--- NOTE | 2017-03-21 14:53 | ED.REPORT ---
HPI-General Illness Date of Service Mar 21, 2017 ED Provider: Doc,Ed MD Patient is a 31-year-old man with schizoaffective disorder, polysubstance abuse , depression, and anxiety with previous suicide attempt who presents to the emergency department after being found shaking and severely sunburned in front of [employer] in [place]. He is unable to coherently answer questions. He does not state that he is in any pain. He is able to communicate that he has been kicked out of his residence, his medications are not with him. When asked if he wants his family to know that he is here he states "they kicked me out". Patient has been seen in the emergency department multiple times and much of the following history was obtained from previous records. Nursing Notes Stated Complaint: CONFUSED Chief Complaint: General Complaint Nursing Notes Reviewed: Yes Allergies: Coded Allergies: cefaclor (Verified Allergy, Unknown, 11/17/16) Pt states he does not know his reaction. Parents told him he was allergic to this med. prednisone (Verified Allergy, Unknown, 11/17/16) sulfamethoxazole (Verified Allergy, Unknown, 11/17/16) Pt does not know reaction. His parents told him. trimethoprim (Verified Allergy, Unknown, 11/17/16) Pt does not know reaction. His parents told him. Scheduled Divalproex ER (Divalproex ER) 500 Mg Tab.er.24h 2,000 MG PO HS Paliperidone Palmitate Inj (Invega Sustenna) 156 Mg/1 Ml Syringe 156 MG IM Q30D Risperidone (Risperdal) 2 Mg Tablet 4 MG PO HS General Time Seen by MD: 14:53 Chief Complaint Altered mental status Hx Obtained From: Patient Arrived By: Ambulance Past Medical History Past Medical History Schizoaffective disorder, bipolar variant. Polysubstance use disorder. Depression Anxiety Previous suicide attempt by overdose Past Surgical History none reported Smoking History Current Every Day Smoker Social History methamphetamine use in past. Previous Sucicide attemt via OD. Alcohol Use: "Social" Drug Use: THC Other Social History: Local resident Occupation states lives in [place] 09/08/2016 Ambulatory Status Independent Review of Systems Unable to Obtain ROS Uncooperative, Mental status Physical Exam Vital Signs Vital Signs Date Time Temp Pulse Resp B/P Pulse Ox O2 Delivery O2 Flow Rate FiO2 03/21/17 13:36 32.2 92 20 144/88 98 Room Air Initial VS: Reviewed, Vital signs normal (mildly hypertensive) General/Constitutional: Well-developed, Well-nourished Head / Eyes: Atraumatic, Normocephalic, PERRL ENT: Mucous membranes moist, Conjunctiva normal, No scleral icterus Neck: Supple, Non-tender, Full range of motion Respiratory: Breath sounds normal, Clear to auscultation, No respiratory distress Cardiovascular: Regular rate & rhythm, Heart sounds normal, Intact distal pulses Abdomen / GI: Soft, Non-tender, No guarding, No rebound, No distention Lymphatic: No lymphadenopathy Extremities: Vascular intact, Neuro intact, No swelling, No tenderness Sunburn covering arms bilaterally and face. Abnormal Mood/Affect: Positive: Anxious Abnormal Thinking / Perception: Positive: Confused Patient speaking in a very quiet mousy voice in between incoherent speech. He is answering some questions but not always appropriately. Patient has shifting eye movements as if he is responding to internal stimuli. He is not able to confirm or deny that he is hearing voices. Interpretation & Diagnostics Urine drug screen is negative Tox screen of the blood is negative for alcohol, acetaminophen, and salicylates. Patient has mild leukocytosis of 10.5 likely due to a stress reaction and not clinically significant. Lab Results Interpretation Result Diagram: 03/21/17 1511 03/21/17 1511 Test 03/21/17 15:11 03/21/17 15:40 White Blood Count 10.5th/mm3 (3.8-10.1) Red Blood Count 4.83mil/mm3 (4.40-5.80) Hemoglobin 14.3g/dL (13.8-17.2) Hematocrit 40.7% (41.0-50.0) Mean Corpuscular Volume 84.3fL (81-100) Mean Corpuscular Hemoglobin 29.6pg (27.0-35.0) Mean Corpuscular Hemoglobin Concent 35.1% (32.0-37.0) Red Cell Distribution Width 12.8% (12.3-15.4) Platelet Count 204bil/L (150-400) Neutrophils (%) (Auto) 61.6% (40-74) Lymphocytes (%) (Auto) 23.4% (14-46) Monocytes (%) (Auto) 12.7% (4-12) Eosinophils (%) (Auto) 1.2% (0-5) Basophils (%) (Auto) 0.3% (0-3) Sodium Level 139mEq/L (134-144) Potassium Level 4.0mEq/L (3.5-5.2) Chloride Level 104mEq/L (97-108) Carbon Dioxide Level 20mmol/L (18-29) Blood Urea Nitrogen 11mg/dL (6-20) Creatinine 0.62mg/dL (0.76-1.27) Estimat Glomerular Filtration Rate 162mL/min (>59) Glucose Level 93mg/dL (60-99) Lactic Acid Level 1.0mmol/L (0.4-2.0) Calcium Level 8.8mg/dL (8.5-10.1) Magnesium Level 2.2mg/dL (1.6-2.6) Total Bilirubin 0.7mg/dL (0.0-1.2) Aspartate Amino Transf (AST/SGOT) 19U/L (0-50) Alanine Aminotransferase (ALT/SGPT) 16U/L (0-44) Alkaline Phosphatase 49U/L (25-150) Total Protein 6.5g/dL (6.4-8.4) Albumin 4.1g/dL (3.4-5.0) Salicylates Level < 3.0ug/mL (30-250) Acetaminophen Level < 15.0ug/mL Rx (10-25) Alcohols < 10mg/dL (0-10) Urine Color Yellow (YELLOW) Urine Appearance Clear (CLEAR,HAZY) Urine pH 7.5 (5.0-8.0) Urine Specific [place] <1.005 (1.003-1.035) Urine Protein Negativemg/dL (NEG,TRACE) Urine Glucose (UA) Negativemg/dL (NEGATIVE) Urine Ketones Negativemg/dL (NEGATIVE) Urine Occult Blood Negative (NEGATIVE) Urine Nitrite Negative (NEGATIVE) Urine Bilirubin Negative (NEGATIVE) Urine Urobilinogen Normalmg/dL (NORMAL) Urine Leukocyte Esterase Negative (NEGATIVE) Urine RBC 0-2/hpf (0-2) Urine WBC 0-5/hpf (0-5) Urine Epithelial Cells Few/hpf (NONE-MOD) Urine Crystals None seen (NONE SEEN) Urine Bacteria Few/hpf (NONE-FEW) Urine Hyaline Casts None/lpf (NONE) Urine Granular Casts None seen (NONE SEEN) Urine Waxy Casts None seen (NONE SEEN) Urine Red Blood Cell Casts None seen (NONE SEEN) Urine White Blood Cell Casts None seen (NONE SEEN) Urine Mucus None seen (None Seen) Urine Trichomonas None seen (NONE SEEN) Urine Yeast None (NONE SEEN) Urinalysis Comment None Urine Culture Reflexed Not indicated Re-Eval/Medical Decision Med Decision/Clinical Course Patient is a 31-year-old man with schizoaffective disorder, polysubstance abuse , depression, and anxiety with previous suicide attempt who presents to the emergency department after being found shaking and severely sunburned in front of [employer] in [place]. Urine drug screen was negative, alcohol, salicylates, and acetaminophen all negative blood. Nonfocal neuro exam. No SI or HI. Called [facility] team who helps manage patient's care. They are aware of the situation and that he is currently homeless. Their recommendation is to medically clear the patient and discharge him. Social work has seen patient. He denies suicidal ideation to social work. He has no plan or intent at this time. Time of Eval: 18:00 Patient Status: Condition improved Re-Evaluation/Progress Note: Patient is more conversive however still not answering questions entirely appropriately. He is feeding himself with a large bites showing decreased impulse control. I have discussed with social work patient's current state. He has previously needed escort out our facility with security. He does not benefit from inpatient mental health treatment. Discharge & Departure Primary Impression: Acute situational disturbance Additional Impression: Acute psychosis Disposition: Home Discharge Condition All VS Reviewed: Yes Condition: No Change Patient Instructions: Sunburn (ED) Additional Instructions: Thank you for entrusting us with her care today. It is important that you follow up with a primary care provider and [facility] care team. It is important to find a dose of medications that is helpful for you without adverse side affects. You may use calamine lotion or Aloe Vera gel for your sunburn. Cool compresses can be helpful as well to decrease discomfort. If you decide to kill yourself and develop a plan please come to the emergency department or call 911. Referrals: [facility] (PCP) Attending Statement I saw the patient with the resident. I agree with the plan and findings and documentation as noted above. In brief, 31-year-old male with a long-standing history of psychiatric illness p /w odd behavior. His care team saw him in the emergency department and feels that he is acting at his baseline. He is not actively suicidal or homicidal at this time; not felt to be at imminent risk to himself or others. Discussed with the social problems specialist as well, who agrees with this; it is felt that he is safe to be discharged at this time. Omer Cherry MD Mar 21, 2017 14:53 Alexandra Sanabria DO Mar 21, 2017 16:00
[2017-03-21 15:28] LABS: BASOPHILS % (AUTO) 0.3 % (0-3); EOSINOPHILS % (AUTO) 1.2 % (0-5); MONOCYTES % (AUTO) 12.7 % (4-12); Mean Corpuscular Hemoglobin 29.6 pg (27.0-35.0); Mean Corpuscular Volume 84.3 fL (81-100); NEUTROPHILS % (AUTO) 61.6 % (40-74); Platelet Count 204 bil/L (150-400)
[2017-03-21 15:58] LABS: Magnesium 2.2 mg/dL (1.6-2.6)
[2017-03-21 16:08] LABS: APPEARANCE,URINE CLEAR (CLEAR,HAZY); COLOR,URINE YELLOW (YELLOW); OCCULT BLOOD,URINE NEGATIVE (NEGATIVE); PH,URINE 7.5 (5.0-8.0); UROBILINOGEN,URINE NORMAL (NORMAL)
== END 2017-03-21 19:35 | disposition home or self-care (01) ==
LOC: SED 13:28 → EDBD 13:28 → SED 19:35
DX: F23 Brief psychotic disorder (principal); F43.0 Acute stress reaction; F41.8 Other specified anxiety disorders; F17.200 Nicotine dependence, unspecified, uncomplicated; Z88.8 Allergy status to other drugs, medicaments and biological substances
CPT/HCPCS: 36415; 80053; 81000; 81002; 83605; 83735; 85025; 90791; 93005; 99284; G0480

== ENCOUNTER 2017-03-22 00:23 | Emergency (ER) | payer OTHER ==
[~2017-03-22] VITALS: Ht 182.9 cm; Wt 97.7 kg
[2017-03-22 00:33] VITALS: BP 144/97; RESP 20; O2SAT 97
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
[2017-03-22 04:04] VITALS: BP 130/82; PULSE 131; RESP 18; O2SAT 98
== END 2017-03-22 04:05 | disposition home or self-care (01) ==
LOC: SED 00:23
DX: F25.0 Schizoaffective disorder, bipolar type (principal); F19.20 Other psychoactive substance dependence, uncomplicated; F32.9 Major depressive disorder, single episode, unspecified; F41.9 Anxiety disorder, unspecified; F17.200 Nicotine dependence, unspecified, uncomplicated; Z91.5 Personal history of self-harm; Z59.0 Homelessness; Z88.1 Allergy status to other antibiotic agents; Z88.8 Allergy status to other drugs, medicaments and biological substances; Z88.2 Allergy status to sulfonamides

== ENCOUNTER 2017-03-23 00:29 | Inpatient (IN) | payer OTHER ==
[2017-03-23 00:37] VITALS: BP 143/94; PULSE 103; RESP 18; O2SAT 97
--- NOTE | 2017-03-23 01:44 | ED.REPORT ---
HPI-Psychiatric Illness Date of Service Mar 23, 2017 ED Provider: Zaire Ordaz MD Patient is a 31 year old male with a history of schizoaffective disorder, polysubstance abuse, and depression who presents to the ED via Police after wandering into traffic. Via police report, at approximately 0640 hrs on 03/22/17 , the pt was contacted by police while urinating in public. The pt pointed his finger at the officer's head and lifted his finger up indicating he was shooting at the officer's head. He his hands demonstrating an explosion. Earlier in the evening, he was standing in the roadway near the shoulder as cars passed by him without fear. The patient asked medics to be brought to the hospital. He was released from the hospital yesterday morning. Nursing Notes Stated Complaint: SUICIDAL Chief Complaint: Psychiatric Complaint Nursing Notes Reviewed: Yes Allergies: Coded Allergies: cefaclor (Verified Allergy, Unknown, 03/22/17) Pt states he does not know his reaction. Parents told him he was allergic to this med. prednisone (Verified Allergy, Unknown, 03/22/17) sulfamethoxazole (Verified Allergy, Unknown, 03/22/17) Pt does not know reaction. His parents told him. trimethoprim (Verified Allergy, Unknown, 03/22/17) Pt does not know reaction. His parents told him. Scheduled Divalproex ER (Divalproex ER) 500 Mg Tab.er.24h 2,000 MG PO HS Paliperidone Palmitate Inj (Invega Sustenna) 156 Mg/1 Ml Syringe 156 MG IM Q30D Risperidone (Risperdal) 2 Mg Tablet 4 MG PO HS General Time Seen by MD: 00:32 Chief Complaint Bizarre behavior Hx Obtained From: Police Arrived By: Police Onset Occurred: Just prior to arrival Symptom Duration: Since onset Severity: Current: No pain currently Recent Healthcare: Recent doctor visit Similar Sx Previous: Yes Risk-Psychiatric Illness Suicide Risk Stratification Suicide Risk Factors - Adult: : Prior psych admission RF Statements: Risk factors reviewed Past Medical History Past Medical History Schizoaffective disorder, bipolar variant. Polysubstance use disorder. Depression Anxiety Previous suicide attempt by overdose Past Surgical History none reported Smoking History Current Every Day Smoker Social History methamphetamine use in past. Previous Sucicide attemt via OD. Alcohol Use: "Social" Drug Use: THC Other Social History: Local resident Occupation states lives in [place] 09/08/2016 Ambulatory Status Independent Review of Systems Unable to Obtain ROS Patient condition Physical Exam Initial Vital Signs Vital Signs (First) Date Time Temp Pulse Resp B/P Pulse Ox O2 Delivery O2 Flow Rate FiO2 03/23/17 00:37 36.5 103 18 143/94 97 Room Air Initial VS: Reviewed General/Constitutional: Awake Neurologic: Oriented X3 Psychiatric: Not homicidal responding to internal stimuli poor eye contact laughing inappropriately mostly refusing to answer questions Head / Eyes: Atraumatic, Normocephalic Skin: Atraumatic, Color NL, No rash Upper Extremity / MS: Atraumatic, Full range of motion, No deformity Wrist / Hand: Atraumatic, Full range of motion, No deformity Lower Extremity / Pelvis / MS: Atraumatic, Full range of motion, No deformity Ankle / Foot: Atraumatic, Full range of motion, No deformity Re-Eval/Medical Decision Med Decision/Clinical Course 31-year-old with schizoaffective disorder and increasingly difficult and bizarre behavior in the community. His been seen here three times in the last two days, evaluated by the [facility] yesterday with no credible report of dangerous behaviors suicidal or homicidal behavior. General interpretation of psychiatry has been the he is a malingerer, seeking to be in the hospital and doing whatever it takes to cause that to happen. However, his behavior has increased to the point that he is endangering himself by wandering in traffic, and is being threatening towards police officers. Packed freight team associate was here to evaluate him and agrees that there is no choice except to have him evaluated, although the therapeutic value of this is questionable. It does accomplish the goal of keeping him out of traffic and out of confrontations with the police temporarily. The possibility of usp and then court-ordered drug therapy to get around his chronic noncompliance might be considered. Monthly Inveiga shot under court order and with enforcement might be affected. Re-Evaluation/Progress #1: Time of Eval: 02:48 Re-Evaluation/Progress Note: PACT worker visits pt in the ED. Re-Evaluation/Progress #2: Time of Eval: 06:01 Re-Evaluation/Progress Note: Pt care transferred to Dr. Justo Flores at change of shift. Consultation : Call Returned at: 04:17 Talent Acquisition Project Manager: Agrees with eval Note: Case discussed with [facility]. Counseled Regarding: Diagnosis, Lab results, Need for follow-up, When/why to return to ED Discharge & Departure Shift Change Sign-Out Patient Care Transferred: Yes Discussed Complaint(s): Yes Impression: Primary Impression: Altered mental status Altered mental status type: unspecified Qualified Code: R41.82 - Altered mental status, unspecified Additional Impressions: Homelessness Malingering Acute psychosis Discharge Condition All VS Reviewed: Yes Condition: Stable Referrals: NOPCP (PCP) [facility] Care Transferred to: Care transferred to Dr. Justo Flores at change of shift. Care Transferred at: 06:01 Scribe Attestation Portion of this note were transcribed by Heather Jackson. I, Dr. Ordaz, personally performed the history, physical exam, and medical decision-making: I reviewed and confirmed the accuracy for the information in the transcribed note. Signed by: [email or web address] 03/23/17 0500 copies to: [facility] Zaire Ordaz MD Mar 23, 2017 01:44 Heather Jackson Mar 23, 2017 01:49
[2017-03-23 06:44] VITALS: BP 128/72; PULSE 77; RESP 16; O2SAT 98
[2017-03-23 10:48] VITALS: BP 155/97; PULSE 80; RESP 18; O2SAT 98
[2017-03-23] MEDS ORDERED: OLANZapine Zydis ODT 5 mg Tablet PO ONE (13:05)
[2017-03-23 15:15] VITALS: BP 116/58; PULSE 54; RESP 18; O2SAT 100
[2017-03-23] MEDS: risperiDONE 2 mg Tablet PO SCH (20:39)
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
[2017-03-24 06:57] VITALS: BP 121/66; PULSE 60; RESP 18; O2SAT 100
[2017-03-24] MEDS: LORazepam 1 mg Tablet PO PRN ×2 (09:19→18:30)
[2017-03-24 09:20] VITALS: BP 138/100; PULSE 82; RESP 19; O2SAT 100
[2017-03-24] MEDS: risperiDONE 2 mg Tablet PO SCH (09:33)
[2017-03-24 15:18] VITALS: BP 126/87; PULSE 115; RESP 16
--- NOTE | 2017-03-24 15:57 | NUR ---
[id number]. nurs. ADMIT NOTE. 31 y.o. male admitted to [facility] from [facility] ED at 1340. Pt had been JENNI'd on 72 hour hold as danger to self as 0845am 03/23/17 after police brought pt to ED on pt's request after pt found urinating on private property and wandering in traffic, on approach by police, pt gesturing with hands that he would shoot police or blow them up. On evaluation by CDP pt responding to questions with unintelligible bizarre ramblings and inappropriate laughing. Pt has long hx of MH hospitalizations on this unit and in [facility] with hx of dx of schizoaffective d.o., polysubstance abuse and depression. Pt continuing to present with confused inaudible, incoherent speech, sentence fragments. Pt did mention that he was recently in long term unable to accurately remember meds last taken and unclear re outpt PACT team follow up. After arrival on unit pt showered, ate food, wandered unit, and when not engaged with staff appeared more alert ,focused and was then enc. to rest due to his vague, confused presentation and slurred speech. Pt did at one point state that he was suicidal without details could not numerically score anxiety or depression. Pt did state could maintain no harm contract on unit.
[2017-03-24] MEDS ORDERED: diphenhydrAMINE 50 mg Capsule PO PRN (17:40)
[2017-03-24] MEDS: risperiDONE 1 mg Tablet PO SCH (20:54)
--- NOTE | 2017-03-25 06:24 | NUR ---
[id number] Nursing Note Sleep=6.5+ hrs uninterrupted sleep S:/O: Patient restless/pacing but appropriate. Requested a shower tonight and defecated there. Found with 4 other patient in piano room praying. A: Poor judgement/insight, impulsive. P: Monitor for safety and response to treatment. Follow plan of care.
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
--- NOTE | 2017-03-25 15:33 | NUR ---
[id number]. nurs S:" I'd rather be ...I heard (in [facility]) that you can kill yourself drinking water...I'm suicide ideating... O: Pt wandering around unit , some interacting with peers, smiling affect with poor focus, some alert eye contact, with sudden fleeting glances around rm with some question re. VHs. Pt unable to rate depression ,did not appear anxious, a lot of disjointed sentence fragments intermittent laughing very distractible. Nebulous presentation, vague responses, brushing of arms, some silly attention seeking mannerisms. While expressing that he would rather be and talking about ways of dying pt stating "It's too hard out there" pt stating that he was more depressed by trying to deal with daily living than concerned re. global issues. Pt's smiling/joking confused affect incongruent with statements re. serious SI. Pt stating can be safe on unit. Pt not isolative. P:CNCP
--- NOTE | 2017-03-25 17:57 | NUR ---
[facility] Day Shift Pt maintained behavioral control throughout the shift. Pt affect appears mostly flat, occasionally bright. Pt affect cycles appear random throughout the shift, ranging from flat and blunt to bright and interactive. Pt speech appears mostly blunt, though occasionally pt speech appears pressured and manic, speaking in [id number] sentences. Pt is appropriate with staff and peers when active on the unit, but is generally not interactive with peers unless engaged. Pt attended group activities throughout the shift and participated to the best of his ability. Pt attended all meals and ate approx 100% of all meals.
[2017-03-25] MEDS: risperiDONE 1 mg Tablet PO SCH (20:17)
--- NOTE | 2017-03-26 05:54 | NUR ---
mold shifter [phone] Pt participated in wrap up group and had no behavioral issues or outburst this shift. Pt does not socialize much with other peers, instead he sat quietly alone watching television, sitting at DR tables or is in his room. Pt took all HS medications including Trazodone 50mg at bedtime. Pt has AM labs-Ammonia, Electrolytes, and Hepatic Function. Pt slept 7.75 hrs uninterrupted. Continue to monitor for mood changes, emotional wellbeing, and q15min checks for safety. Care continues. Addendum: 03/26/17 at 0556 by BILL POLLACK RN mold shifter [phone]
[2017-03-26 08:00] LABS: Bilirubin, Direct 0.2 mg/dL (0.0-0.3)
[2017-03-26] MEDS ORDERED: Paliperidone Palmitate 234 mg/1.5 mL Inj (NC) IM ONE (08:30)
[2017-03-26] MEDS ORDERED: Paliperidone Palmitate 234 mg/1.5 mL Inj IM SCH (12:45)
--- NOTE | 2017-03-26 14:14 | PROG NOTE ---
[address] [address] PROGRESS NOTE PATIENT: WILFRED HERNANDEZ : 1985 MR#: [id number] ADMIT: 03/24/2017 JOB ID: [id number] DATE:03/26/2017 CHIEF COMPLAINT: "I will take the shot." This is per patient report. HISTORY OF PRESENT ILLNESS: As noted, above, the patient met with myself and Angela, the case finisher, to review his current status. Per report, the patient has had multiple hospitalizations over the past six months and is well known to myself. The patient does carry a previous diagnoses of schizoaffective disorder, antisocial personality disorder, polysubstance use disorder, and per report of his last discharge, the patient was maintained on doses of Invega Sustenna 156 mg q. month, Risperdal 4 mg q.h.s. and Depakote 2000 mg q.h.s. In meeting with myself and Angela, the patient had a noted change of affect from prior with significant blunted responses and hesitancy and latency of speech. The patient previously has a long-term history of very animated presentation with some elevation of affect and noted agitation. Per report, there is a suspicion that the patient had been using substances which are unknown, and per ER report, the patient did test negative for substance screening. Updated laboratory data collected did show mildly elevated ammonia level at 80 on March 26, this morning. Other factors of a chemistry panel and liver function panel was within normal limits. There is some concern that patient has been noncompliant with his medications. It is unknown whether the patient continues to have connections with [facility] and the patient was unable to recall his last injection noted. OBJECTIVE: On mental status exam, as noted above, the patient is blunted. He makes minimal eye contact. His speech is delayed and hesitant. His mood is neutral. His affect is blunted. His thought process shows no evidence of racing thoughts, flight of ideas, loose or disconnected thinking. There is significant paucity of thought. His thought content: He reportedly had identified significant suicidal ideation and was attempting to walk into traffic, per report through the emergency department. He is quite paranoid on presentation. He does appear to be responding to internal stimulus. He was alert. Orientation was untestable. Insight and judgment are deemed poor. PHYSICAL EXAM: Vital signs are current. Temperature is 36.2, pulse 115, respirations 16, BP 126/87. MEDICATION REVIEW: Includes: 1. Depakote 500 mg q.h.s. 2. Risperdal 3 mg q.h.s. 3. Trazodone 50 mg p.r.n. at h.s. 4. Ativan 1-2 mg t.i.d. p.r.n. LABORATORY DATA: Reviewed. Elevated ammonia level at 80. ASSESSMENT: [place] I. 1. Schizoaffective disorder. 2. Methamphetamine use disorder by history. 3. Marijuana use disorder by history. 4. Rule out substance-induced psychoses. [place] II. Antisocial personality disorder. [place] III. Elevated ammonia levels, more than likely correlated to Depakote. [place] IV. Stressors are noted for chronic substance use, current status of homelessness, noncompliance with medications. [place] V. Global Assessment of Functioning current 30. PLAN: 1. Recommendations for titration of Depakote to 1500 mg q.h.s. 2. Continuation of Risperdal with titration to 3 mg b.i.d. 3. Institution of Invega Sustenna at 234 mg, based on patient's stature and also history of noncompliance. 4. Introduction of lactulose due to elevated ammonia 20 mg daily. 5. Continuation of pursuit of 14-day order based on the patient's status of suicidality and significant concerns of grave disability. MTDD
--- NOTE | 2017-03-26 14:35 | NUR ---
Nursing 7a-3p Pt has remained calm and cooperative on the unit. He received his Invega shot this afternoon without incident. Out eating meals and napping through the day. No complaints. No prn medications requested or needed.
--- NOTE | 2017-03-26 18:00 | NUR ---
Observations [id number] Pt isolative to room for much of the morning, didn't attend breakfast. Pt had limited communication with peers and staff, attending lunch and dinner and eating 100% but no other unit activities, sleeping much of the afternoon. He was observed every 15 minutes of shift as directed.
[2017-03-26] MEDS: risperiDONE 1 mg Tablet PO SCH (20:26)
--- NOTE | 2017-03-26 22:23 | NUR ---
NURSING NOTE [id number] Mood: "okay" Affect: blunted, calm, cooperative Behavior: isolating more this shift than evenings prior. Visible for meals but otherwise mostly keeping to his room. Med compliant at HS. Thought processes: tangential in conversation; will fixate on a trivial word in questions phrased by this repairer typewriter and not able to answer coherently. Pt appears paranoid at times and unsure of himself on the unit, keeping to the fringes and avoiding eye contact or conversation. Did not answer verbally when asked about SI but shook his head.
--- NOTE | 2017-03-27 05:39 | NUR ---
Nursing Note World Language Teacher 11pm to 7am Pt asleep at start of shift and remained asleep the remainder of the shift. No issues observed or reported. Monitored pt. with q 15 minute face checks for safety location and accountability
[2017-03-27] MEDS: risperiDONE 1 mg Tablet PO SCH ×2 (09:19→19:58)
[2017-03-27] MEDS: Lactulose 20 Gm/30 mL 30 mL Syrup PO SCH (09:19)
--- NOTE | 2017-03-27 13:28 | PROG NOTE ---
[address] [address] PROGRESS NOTE PATIENT: WILFRED HERNANDEZ : 1985 MR#: [id number] ADMIT: 03/24/2017 JOB ID: [id number] DATE: 03/27/2017 CHIEF COMPLAINT: "I am having a really hard morning." This is per patient report. HISTORY OF PRESENT ILLNESS: As stated above, the patient did meet with myself and openly identified that he is struggling this morning. He was quite tearful and indicated that he is feeling very hopeless at this time. He was given a 14-day order, which was stipulated by his legal paraprofessional with noted refusal to attend the court process. The patient has had significant reclusiveness with this admission and appears to be quite depressed and distraught. He openly agreed to initiation of medications yesterday with initiation of doses of Depakote 1500 mg q.h.s., Risperdal 3 mg b.i.d. and an Invega injection of 234 mg. He indicated that he has a history of being kicked out with a no trespassing order from the [facility] in [place] and the [facility]. I have discussed possible alternatives including the [employer] [facility], and he indicated that he would be open to this option with connection with community-based service services including referrals for [facility] or [facility]. He remains suicidal indicating that he really feels that his life is worth nothing and that there is no reason for him to even be alive. OBJECTIVE: On mental status exam he is quite downcast. Makes intermittent eye contact. He becomes tearful readily. His speech is hesitant. His mood is depressed. His affect is blunted. His thought process shows no evidence of racing thoughts, flight of ideas, loose or disconnected thinking. His thought content, he readily identified significant suicidal ideation with preoccupation of . He denied any homicidal ideation at this time. There is a mild degree of paranoia. He denies any evidence of hallucinations or delusions but continues to have evidence of visual tracking. He was alert, oriented to time and place. Attention and concentration are poor. Memory untested. Insight and judgment are poor. PHYSICAL EXAMINATION: Vital signs are current. Temperature is 36.2, pulse 115, respirations 16, BP 126/87. MEDICATION REVIEW: Includes: 1. Lactulose 20 g daily. 2. Depakote 1500 mg q.h.s. 3. Risperdal 3 mg b.i.d. 4. Invega Sustenna injection, given on March 26. 5. Trazodone 50-100 mg q.h.s. 6. Ativan 1-2 mg p.o. t.i.d. p.r.n. for anxiety. ASSESSMENT: AXIS I 1. Schizoaffective disorder, bipolar type. 2. Cannabis use disorder. 3. Methamphetamine use disorder. 4. Polysubstance use disorder. AXIS II Antisocial personality disorder. AXIS III None. AXIS IV Stressors are noted for chronic mental health issues, medication noncompliance, chronic substance abuse. AXIS V Global Assessment of Functioning current 30. PLAN: 1. Recommendation is for continuation of hospitalization under MR 14. 2. Recommendation is for continuation of all medications noted. 3. Continuation of disposition planning including possible access of services in [place]. Discussed with the treatment team. HOLLIS
--- NOTE | 2017-03-27 14:51 | NUR ---
Nursing 7a-3p Pt out for meals otherwise isolating in his room majority of the shift lying on his bed staring at the ceiling. He was seen by the doctor. When approached by staff and asked how his mood was he just stared for a while and did not answer. It appeared that he was having difficulty processing the conversation. This staff then asked if he had any concerns he just stared at the ceiling and placed his hands formed in a fist on each side of his head. He gave a delayed response of "I'm good" then continued to stare at the ceiling. Mood depressed, delayed cognition and minimally engaged on the unit. Pt appears to be most responsive to the doctor. He is not engaging with his peers. Taking medications as prescribed. Continue to monitor mood, assess SI & thought content.
--- NOTE | 2017-03-27 16:48 | NUR ---
Observations [id number] Pt continues to isolate to room, sleeping or laying on bed. Affect is flat and aloof. Pt limited in conversation with staff and peers, shows little interest in participating in unit activities. Pt attended all meals, eating 100%. Pt did not request shower or laundry today. He wandered the halls at times, appearing lost. Pt was observed every 15 minutes of shift as directed.
--- NOTE | 2017-03-27 21:17 | NUR ---
NURSING NOTE [id number] Mood: "I'm well" Affect: incongruent w/mood statement-- pt. appears profoundly depressed, blunted. He is guarded. Behavior: pt. mostly keeping to his room this shift, paced the hallways a few times and has been out for meals. He asked for his HS meds at 20:00. Received PRN Trazodone 100 mg. Thought processes: pt. endorses SI this evening, stating in a low murmur: "I want to ". He chuckled when this contract technical writer asked if he had any plan or intent and stated "no, I can't do anything". Pt. unable to articulate to this contract technical writer why he is feeling suicidal. Nodded affirmatively that he could let staff know if he develops plan or intent.
--- NOTE | 2017-03-28 05:00 | NUR ---
Observations 1900 to 0700 Pt was in D.R. when my shift started. Pt was flat, guarded, withdrawn and unsocial. Pt was polite and cooperative when approached. Pt ate snack before going to his room for the night. Pt first appeared asleep at 2114 and was observed every 15 minutes through the night as ordered. Pt slept well through the night.
[2017-03-28] MEDS: risperiDONE 1 mg Tablet PO SCH ×2 (08:07→21:11)
[2017-03-28] MEDS: Lactulose 20 Gm/30 mL 30 mL Syrup PO SCH (08:55)
--- NOTE | 2017-03-28 13:22 | PROG NOTE ---
[address] [address] PROGRESS NOTE PATIENT: WILFRED HERNANDEZ : 1985 MR#: [id number] ADMIT: 03/24/2017 JOB ID: [id number] DATE: 03/28/2017 CHIEF COMPLAINT: "I did talk to the staff last night. I am still having suicidal thoughts but no plan. I will agree to talk to staff if I feel that I cannot control it." HISTORY OF PRESENT ILLNESS: As stated above, the patient did identify that last evening he spoke with nursing staff about his continuation of suicidal thoughts, identifying that he continues to feel quite depressed and suicidal with myself. He reportedly identified that this morning as a little bit better than yesterday. He shows a continuation of despondency with visual tracking throughout the course of conversation. He did smile and laugh somewhat spontaneously which was incongruent to the topic. OBJECTIVE/MENTAL STATUS EXAMINATION: The patient was cooperative, polite. He maintained intermittent eye contact as noted above. The patient did have evidence of visual tracking and at one point laughed incongruent of his current conversation. His mood was depressed. His affect was congruent. For the most part, he denied any evidence of current homicidal ideation. He admitted to suicidal ideation with no expressed intent or plan. He denied any evidence of active hallucinations; however there is some question of validity. There is a mild degree of paranoia. He was alert, oriented to time and place. Attention and concentration are fleeting. Insight and judgment are fair. PHYSICAL EXAMINATION: All vital signs of current. Temperature is 36.2, pulse 115, respirations 16, BP 126/87. CURRENT MEDICATION: Includes: 1. Lactulose 20 g daily. 2. Depakote 1500 mg q.h.s. 3. Risperdal 3 mg b.i.d. 4. Trazodone 50 mg q.h.s. 5. Ativan 1-2 mg t.i.d. p.r.n. ASSESSMENT: AXIS I: 1. Schizoaffective disorder, bipolar type. 2. Cannabis use disorder. 3. Methamphetamine use disorder. 4. Polysubstance use disorder. AXIS II: Antisocial personality disorder. AXIS III: None. AXIS IV: Stressors are noted for chronic mental health issues, medication noncompliance, chronic substance use. AXIS V: Global Assessment of Functioning, current 30. PLAN: 1. Recommendation for Depakote level to be obtained tomorrow morning along with ammonia level. 2. Recommendations for continuation of all medications with further titration of Depakote to follow. 3. Consideration of additional antidepressants will be discussed with the patient based on the above findings. 4. Continuation of 14 day order. 5. Recommendations for followup disposition including referrals to [facility] and connections with community based mental health in that region. HOLLIS
[2017-03-28 16:21] VITALS: BP 138/88; PULSE 88; RESP 18
--- NOTE | 2017-03-28 17:31 | NUR ---
[facility] Day Shift Pt maintained behavioral control throughout the shift. Pt affect appears flat, blunt. Pt appears less impaired and more focused than noted on previous shifts. Pt spends most of the shift resting in his room in the AM, and interacting with peers/engaging in unit activities in the afternoon/evening. Pt is appropriate with staff and peers when active on the unit. Pt did not attend community meeting in the AM, but did participate in unit activities throughout the shift. Pt attended all meals and ate approx 30% of breakfast and 100% of lunch and dinner.
--- NOTE | 2017-03-28 18:07 | NUR ---
[id number]. nurs. S: "Maybe a 5 ,maybe a 2 maybe ....(rating depression numerically) O: Pt with brighter affect this marilin, appeared more depressed in am. Pt continues to have very scattered thinking and poor recall. Pt reporting that he has no current SI or anxiety and denying SI. Pt stating he has some depression but very imprecise with his evaluation. Pt easily distracted by things such as particles in the air. Pt appearing to be trying to concentrate, and draw thoughts together some improvement, still confused disorganized thinking. Pt out on unit participating in grp activities. Pt does not seek interaction with others but pleasant and light when approached. P:CNCP
[2017-03-28] MEDS: LORazepam 1 mg Tablet PO PRN (21:11)
--- NOTE | 2017-03-28 21:24 | NUR ---
behavior: pt. chuckling, talking to himself. Pt. looking into med room waiting for meds made a reference that "computers are taking over the world, while pointing to the omnicell," pt. stated was hoping for a good night sleep.
[2017-03-29] MEDS: risperiDONE 1 mg Tablet PO SCH ×2 (08:38→20:46)
[2017-03-29 10:00] VITALS: BP 115/64; PULSE 80; RESP 16
[2017-03-29] MEDS: Lactulose 20 Gm/30 mL 30 mL Syrup PO SCH (12:08)
--- NOTE | 2017-03-29 13:19 | PROG NOTE ---
[address] [address] PROGRESS NOTE PATIENT: WILFRED HERNANDEZ : 1985 MR#: [id number] ADMIT: 03/24/2017 JOB ID: [id number] DATE: 03/29/2017 CHIEF COMPLAINT: "I am having a better day.: HISTORY OF PRESENT ILLNESS: As stated above, the patient did identify that he does feel that he is having a much better day. He indicates that his mood is brighter this morning and states that he was able to actually interact with staff and peers yesterday afternoon. He reportedly has had no evidence of agitation or volatility during his course of hospitalization. He remains somewhat isolative at times but shows much more animation of affect this morning. Laboratory data collected did show a continuation of elevated ammonia. However, the levels have dropped from 80 down to 61 with administration of lactulose. His Depakote level was noted at 63. OBJECTIVE: On mental status examination, he was much brighter. He made good eye contact with myself and the medical student. His speech was of normal tone, frequency and volume. His mood was neutral. Affect was congruent. His thought process showed no evidence of racing thoughts, flight of ideas, loose or disconnected thinking. Thought content: He denied any evidence of current suicidal ideation. He indicated that he has not had any thoughts over the past two days. He denied any active hallucinations, delusions. No evidence of paranoia. His insight and judgment were gaining. PHYSICAL EXAM: Vital signs are current. Temperature is 36.4, pulse 88, respirations 18, BP 138/88. MEDICATION REVIEW: Includes: 1. Lactulose 20 g daily. 2. Depakote 1500 mg q.h.s. 3. Risperdal 3 mg b.i.d. 4. Trazodone 50-100 mg p.r.n. at h.s. 5. Ativan 1-2 mg t.i.d. p.r.n. ASSESSMENT: AXIS I 1. Schizoaffective disorder, bipolar variant. 2. Polysubstance use disorder including cannabis and methamphetamine. 3. Posttraumatic stress disorder, chronic. AXIS II Antisocial personality disorder. AXIS III None. AXIS IV Stressors are noted for chronic mental health issues, medication noncompliance, chronic substance abuse. AXIS V Global assessment of functioning of current 30. PLANS: 1. Recommendations for titration of Depakote to 2000 mg q.h.s. 2. Continuation of Risperdal, trazodone, Ativan and lactulose. 3. Recommendations for probable discharge the middle of next week with transition to [facility] in [facility] with applications of LR to be filed for continuation of services at [facility] or [facility] or possibilities of transfer of PACT team enrollment. . MTDD
--- NOTE | 2017-03-29 16:17 | NUR ---
. nurs. S: " I burned all my bridges here.. I'm confused about the crimes I supposedly did, ..[facility] I have not seen my financial aid officer how do they know I'm in hospital ." O: Pt stated that he does not know about being on probation in a new area. Pt concerned about a " homeless person possibly at the mission that has it out me" . Pt states that he is still having some "weird feelings" ,still having some confusion, some difficulty with clarity of thinking. Pt stating that he is concerned about the possibility of gynecomastia with risperdal stating that he could not remember if he has had it before or if it was a hallucination. Pt denying having any hallucinations at present. Pt non specific but identifying some depression and some anxiety no SI. A: Although improved in presentation pt does continue to have some floating focus, some distractibility and some concrete concerns. P:CNCP
--- NOTE | 2017-03-29 17:32 | NUR ---
[facility] Day Shift Pt maintained behavioral control throughout the shift. Pt affect appears brighter than noted on previous shifts. Pt appears less impaired and more focused than noted on previous shifts. Pt spends most of the shift resting in his room in the AM, and interacting with peers/engaging in unit activities in the afternoon/evening. Pt is appropriate with staff and peers when active on the unit. Pt participated in unit activities throughout the shift. Pt attended all meals and ate approx 100% of all meals.
[2017-03-29] MEDS: LORazepam 1 mg Tablet PO PRN (21:05)
--- NOTE | 2017-03-29 21:43 | NUR ---
KATHY PT out in the milieu interacting with other residents. PT came up to med room and was talking with this RN. PT denies any SI/HI. PT does state "I dont really think about it until someone brings it up." PT able to contract for safety. PT continues to have disorganized thoughts. Pt states that "IG has it out for us, but the aliens are protecting us." THen he started laughing. PT rated anxiety at a 6/10 and 0/10 for depression. PT requested trazadone for sleep and was also given 2mg of ativan. PT is currently sleeping. WIll continue with current POC at this time and monitor for any A/R.
[2017-03-30] MEDS: risperiDONE 1 mg Tablet PO SCH ×2 (08:26→20:23)
[2017-03-30] MEDS: Lactulose 20 Gm/30 mL 30 mL Syrup PO SCH (08:26)
[2017-03-30 10:00] VITALS: BP 122/85; PULSE 93; RESP 16
--- NOTE | 2017-03-30 13:41 | PROG NOTE ---
[address] [address] PROGRESS NOTE PATIENT: WILFRED HERNANDEZ : 1985 MR#: [id number] ADMIT: 03/24/2017 JOB ID: [id number] DATE: 03/30/2017 CHIEF COMPLAINT: "I am worried that I won't have my food card." This per patient report. HISTORY OF PRESENT ILLNESS: As stated above the patient identified that he believes that he has lost his food stamps card and went through a variance of discussion with myself in the hallway. He indicated that after his release from [facility] he evidently went to his biological mother's home in [place] and purchased a bunch of food for her and later was kicked out within three days. He indicates that she has told him that she never wants to see his face again. He became quite distraught, tearful, indicating that he essentially has no one. He did make reference of his understanding that we are pursuing a possible transfer of his probation to [facility] for possible enlistment of services in [facility]. He indicated that he would be willing to agree to an LR 90, which I believe is appropriate for the patient due to his long-term history of noncompliance with medication management and interventions of case management. He indicated that in the past he has been given no trespassing orders both at [facility] [place] and also [facility]. His most recent contact has been with the PAC team and it is my understanding that he is not involved with services with them at this point in time. OBJECTIVE: On mental status exam, he was cooperative, polite. He made good eye contact. He did become quite tearful in discussing his current life situation with disconnection with all family members. He remains cooperative on the unit and has been consenting to all medications. His Depakote level was notably decreased below 60 of recent and I have titrated his dose to 2000 mg ER q.h.s. He remains cooperative with dose administration of Risperdal and received his injection of Invega Sustenna this last week. His demeanor is significantly improved from prior contacts. He has shown no evidence of agitation, irritability with staff members. His speech is of normal tone, frequency, and volume. His mood is neutral. Affect is congruent. His thought process shows no evidence of racing thoughts, flight of ideas, loose or disconnected thinking. Thought content: He denied any evidence of current suicidal, homicidal ideation. No evidence of active hallucinations, delusions. He was alert, oriented to time and place. His attention and concentration are impaired. Insight and judgment are poor. PHYSICAL EXAMINATION: Vital signs of current: Temperature is 36.3, pulse 80, respirations 16, BP 115/64. MEDICATION REVIEW: Includes Depakote 2000 mg ER q.h.s., lactulose 20 g daily, Risperdal 3 mg b.i.d., Invega Sustenna last injection March 26, trazodone 50-100 mg q.h.s., and Ativan 2 mg t.i.d. p.r.n., last dose on March 29. ASSESSMENT: [place] I: 1. Schizoaffective disorder, bipolar variant. 2. Polysubstance use disorder. 3. Post-traumatic stress disorder, chronic. [place] II: Antisocial personality disorder. [place] III: None. [place] IV: Stressors are noted for chronic disturbance of mental health, noncompliance, substance use. [place] V: Global Assessment of Functioning of current 35. PLAN: 1. Recommendations for continuation of all medications noted. 2. Recommendations for plan of discharge Sunday/ of next week, with hopeful transition of services under LR 90 to [facility]. Probation will be notified via welfare case worker to receive transfer of probation as well. HOLLIS
--- NOTE | 2017-03-30 16:49 | NUR ---
Observations 0900 - 0 Pt affect and mood was friendly, social and active on the unit. Pt was pleasant, polite and cooperative when approached. Pt maintained behavior throughout the shift. Pt speech and eye contact was good. Pt attended meals in D.R. and ate 100% of his meals. Pt ate snack. Pt attended group and unit activities today. Pt went out on patio with staff and peers to get some fresh air. Pt walked the hallway, sat in [facility] and socialized with peers during free time. Pt was observed every 15 minutes through the shift as ordered.
--- NOTE | 2017-03-30 17:41 | NUR ---
Nursing Day Shift S: "I took a vacation to [place] once from a longterm house." O: Patient discussing possibility of being discharged to [place] with f/u in that city. Speech clear. At times a delayed response during interaction noted. Good appetite at meals. Has been out of his room much of the shift. Out on the patio earlier with peers. Anxiety "a 2-11/03". Denies depression, harmful thoughts, and hallucinations. A: Calm. Cooperative. Directable. Pleasant on approach. P: CPOC. Monitor mood and behavior.
--- NOTE | 2017-03-31 05:31 | NUR ---
nursing, nights, 11-7 s/o- has appeared to sleep after 2300 during q 15 minute assessments. a- no apparent distress. p- monitor behavior/emotional state, quality, times and amount of sleep, use and effect of medication. nalini
[2017-03-31] MEDS: risperiDONE 1 mg Tablet PO SCH ×2 (08:29→21:32)
[2017-03-31] MEDS: Lactulose 20 Gm/30 mL 30 mL Syrup PO SCH (08:29)
[2017-03-31 11:15] VITALS: BP 128/80; PULSE 90; RESP 17
--- NOTE | 2017-03-31 12:30 | NUR ---
Nursing Dayshift: S: "Can I get one of those things...you know...." O: Patient requesting a nicotine lozenge per the above subjective. Has been out in the public areas today. Calm and cooperative. Good appetite at meals. Pleasant on approach. Denies anxiety and depression, harmful thoughts, and hallucinations. A: Calm. Cooperative. P: CPOC. Monitor mood and behavior.
--- NOTE | 2017-03-31 13:47 | PROG NOTE ---
[address] [address] PROGRESS NOTE PATIENT: WILFRED HERNANDEZ : 1985 MR#: [id number] ADMIT: 03/24/2017 JOB ID: [id number] DATE: 03/31/2017 CHIEF COMPLAINT: "I am feeling better, I hope it works out in [place]." This per patient report. HISTORY OF PRESENT ILLNESS: As stated above, the patient did spend some time with myself and smiled appropriately throughout the course of conversation with increasing animated affect. He has admitted over the past several days that prior to his admission, he had been using resin, which is a combination of both heroin and methamphetamine. He indicated that he realizes that it had its effect on him and he indicated that over the past several days, he feels that his mood has dramatically improved. He did review his previous history of residence indicating that after he was discharged from correction he tried to develop a relationship with his biological mother and her boyfriend and children, but essentially stated that he was kicked out of that home as well. He became tearful, identifying that essentially he has no one and no family at this time. He indicated that his adoptive mother resides in [place], [place]. His adoptive father is from a cardiac within the past two years. He spent some time discussing that he would like to eventually move to [place], [place], after he is off of probation due to the fact that his adoptive grandfather owns a home there and he stated that he is pretty close to him and recently talked with him on the telephone when he was in correction. He indicates that he realizes that he has burned most of his bridges in the region and states that he essentially just wants to be part of something and "wants to be loved." OBJECTIVE: On mental status exam, the patient was much more animated on affect. He maintained good eye contact throughout. His speech was of normal tone, frequency, and volume. His mood is mildly depressed but congruent. His affect is much more animated as noted. His thought process shows no evidence of random flight of ideas, loose or disconnected thinking. Thought content: He denied any evidence of current suicidal or homicidal ideation. He indicated that previous experiences with hallucinations, delusions have not been present over the past 2-3 days. He maintains cooperative with his medication administration. He was alert, oriented to time and place. Attention and concentration improved. Insight and judgment are gaining. PHYSICAL EXAM: Vital signs of current: Temperature is 36.8, pulse 93, respirations 16, BP 122/85. MEDICATION REVIEW: Includes: 1. Depakote 2000 mg q.h.s. 2. Lactulose 20 g daily. 3. Risperdal 3 mg b.i.d. 4. Invega Sustenna, last injection March 26, 234 mg daily. 5. Benadryl 50 mg q.4 h. p.r.n. 6. Trazodone 50 mg q.h.s. 7. Ativan 2 mg t.i.d. p.r.n. ASSESSMENT: [place] I. 1. Schizoaffective disorder, bipolar variant. 2. Posttraumatic stress disorder, chronic. 3. Polysubstance use disorder. [place] II. Antisocial personality disorder. [place] III. None. [place] IV. Stressors noted for chronic disturbance to mental health, noncompliance with medications, substance use. [place] V. Global Assessment of Functioning current 35. PLAN: 1. Continuation of all medications noted. 2. Continuation of planned discharge on Sunday/ next week, with transition to [facility], either via PACT team or possibility of applications of LR 90. 3. Depakote level to be obtained on Sunday morning along with ammonia level at that time.
--- NOTE | 2017-03-31 16:11 | NUR ---
Observations 0700 to 1900. Pt set a daily goal. Pt attended recreational activities. Pt ate a snack. Pt is pleasant, cooperative and mildly social with staff and peers. Pt maintained behavioral control and showed no signs of abnormal behavior. Staff completed 15 min close observations as ordered.
[2017-04-01] MEDS: Lactulose 20 Gm/30 mL 30 mL Syrup PO SCH (08:23)
[2017-04-01] MEDS: risperiDONE 1 mg Tablet PO SCH ×2 (08:24→19:33)
[2017-04-01 11:00] VITALS: BP 144/80; PULSE 84; RESP 16
--- NOTE | 2017-04-01 12:29 | NUR ---
Nursing Dayshift: S: O: A: P: CPOC. Monitor mood and behavior.
--- NOTE | 2017-04-01 12:31 | PROG NOTE ---
[address] [address] PROGRESS NOTE PATIENT: WILFRED HERNANDEZ : 1985 MR#: [id number] ADMIT: 03/24/2017 JOB ID: [id number] DATE: 04/01/2017 CHIEF COMPLAINT: "I am really sorry about what I have done before, I do not remember doing those horrible things." HISTORY OF PRESENT ILLNESS: As stated above, the patient met with myself this morning and openly identified that he is struggling with feelings of guilt and shame as related to his previous behavior on the inpatient unit both here and at other treatment facilities including [facility]. He reports that he is aware that he has had difficulties in the past with explosive and violent behaviors and indicates that he was apologetic with staff members as well. He indicates that he feels that he is not worthy of the care that he is currently receiving and appeared to be very sincere in overall presentation. The patient has inquired about his current transition residence to [place]. He reports that his patient case coordinator through the PAC team had made reference of the possibility of [facility]. The patient identifies that he is hopeful that this will begin a new life and that he can basically transition into other care facilities for maintenance of medication management. OBJECTIVE: On mental status exam, he was bright, cooperative. He smiled appropriately throughout. His speech is of normal tone, frequency, and volume. His mood is neutral. Affect was congruent. His thought process showed no evidence of racing thoughts, flight of ideas, loose or disconnected thinking. Thought content: He denied any evidence of current suicidal, homicidal ideation. No evidence of active hallucinations, delusions. There is a mild degree of paranoia. He was alert, oriented to person, place, time, situation. Attention and concentration intact. Insight and judgment are fair. PHYSICAL EXAMINATION: Vital signs of current: Temperature is 35.2, pulse 98, respirations 17, BP 128/80. MEDICATION REVIEW: Includes: Depakote 2000 mg q.h.s. Lactulose 20 g daily. Risperdal 3 mg b.i.d. Invega Sustenna, last injection March 26, 234 mg daily. Trazodone 50-100 mg, last dose on the , 50 mg. ASSESSMENT: [place] I: 1. Schizoaffective disorder, bipolar variant. 2. Post-traumatic stress disorder, chronic. 3. Polysubstance use disorder including methamphetamine, opiates, THC. [place] II: Antisocial personality disorder. [place] III: None. [place] IV: Stressors are noted for chronic disturbance of mental health, chronic substance use. [place] V: Global Assessment of Functioning of current 30. PLAN: 1. Recommendations for continuation of care under 14 day order. Discussion has been held with the transition of services with PAC team transfer to the [facility] PAC team. 2. Continuation of all medications noted. 3. Clarification through probation of possible transfer of probationary status to [facility] as well. HOLLIS
--- NOTE | 2017-04-01 14:56 | NUR ---
Nursing Dayshift: S: "How far is the [place] from the [place]?" O: Patient ambulating bardales during interaction with this staff. When asked if he had any questions he made the above statement. Eating well at meals. Social with staff and peers. Humorous at times. Denies anxiety, depression, harmful thoughts, and hallucinations. A: Calm. Cooperative. Interactive. P: CPOC. Monitor mood and behavior. Addendum: 04/01/17 at 2014 by SHADY MOORE RN Patient continues with cooperative behavior. Social with staff and peers.
--- NOTE | 2017-04-01 17:28 | NUR ---
Observations 0300 - 1900 Pt was asleep when my shift started and slept well. Pt affect and mood was friendly, social and active on the unit. Pt was pleasant, polite and cooperative when approached. Pt maintained behavior throughout the shift. Pt speech and eye contact was good. Pt attended all 3 meals in D.R. and ate 100% of his meals. Pt ate snack. Pt went out on patio with staff and peers to get some fresh air. Pt walked the hallway, sat in [facility], watched baseball game and was minimally social with peers during free time. Pt watched some TV in group room. Pt was observed every 15 minutes through the shift as ordered.
[2017-04-01] MEDS: LORazepam 1 mg Tablet PO PRN (20:44)
--- NOTE | 2017-04-02 06:17 | NUR ---
Nursing Note Metal Washing Machine Operator 11pm to 7am Pt in bed at start of shift and remained asleep for the duration without interruption. Monitored pt with q 15 minutes for safety, location and accountability
[2017-04-02] MEDS: Lactulose 20 Gm/30 mL 30 mL Syrup PO SCH ×2 (08:02→20:17)
[2017-04-02] MEDS: risperiDONE 1 mg Tablet PO SCH ×2 (08:02→20:17)
[2017-04-02 09:15] VITALS: BP 85/45; PULSE 63; RESP 17
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
[2017-04-02 13:43] VITALS: BP 127/79; PULSE 112
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
--- NOTE | 2017-04-03 04:09 | NUR ---
Observations 2300 to 0700 Pt was asleep when my shift started. Pt remained asleep and in bed. Pt first appeared asleep at 2100 and was observed every 15 minutes through the night as ordered. Pt has slept well through the night.
--- NOTE | 2017-04-03 05:58 | NUR ---
Nursing Note Caddy 11pm -7am Pt asleep at start of shift and remained asleep for the duration. Monitored pt q 15 minutes for safety location and accountability
[2017-04-03] MEDS: risperiDONE 1 mg Tablet PO SCH ×2 (08:01→21:20)
[2017-04-03] MEDS: Lactulose 20 Gm/30 mL 30 mL Syrup PO SCH ×2 (08:01→21:20)
--- NOTE | 2017-04-03 10:49 | PROG NOTE ---
[address] [address] PROGRESS NOTE PATIENT: WILFRED HERNANDEZ : 1985 MR#: [id number] ADMIT: 03/24/2017 JOB ID: [id number] DATE: 04/03/2017 CHIEF COMPLAINT: "I'm pretty excited, hopefully things will work out." This per patient report. HISTORY OF PRESENT ILLNESS: As stated above, the patient did identify that he is excited about the upcoming transition to [facility] indicating that he has not had any [facility] social worker, but he is aware that they are working on a transfer. He indicated that he is hopeful as well that the home school liaison officer will agree to a transfer of his case. OBJECTIVE: On mental status examination, he was bright, cooperative, interactive. He is much more animated today than of prior. He has had some difficulties with a need of redirection with nursing staff. At times appears to be flirtatious but is redirectable. He was alert, oriented to person, place, time, situation. He denies any active hallucinations, delusions. He did admit with nursing staff that historically he has struggled with seeing and hearing demons but he indicated that he is able to ignore them at this time. He denies any evidence of paranoia. His insight and judgment were fair. PHYSICAL EXAMINATION: Vital signs are current. Temperature is unlisted. Pulse 112, respirations unlisted, BP 127/79. MEDICATION REVIEW: Includes: 1. Lactulose 20 g b.i.d. 2. Depakote 2000 mg q.h.s. 3. Risperdal 3 mg b.i.d. 4. Invega Sustenna 234 mg, last injection March 26. 5. Trazodone 50-100 mg q.h.s. 6. Ativan 1-2 mg t.i.d. p.r.n. ASSESSMENT: [place] I 1. Schizoaffective disorder bipolar variant. 2. Polysubstance use disorder including methamphetamines, opiates, THC. 3. Posttraumatic stress disorder, chronic. [place] II Antisocial personality disorder. [place] III None. [place] IV Stressors are noted for chronic substance abuse, history of noncompliance with medications, history of trauma. [place] V Global assessment of functioning of current 35. PLAN: 1. Recommendations for continuation of pursuit to discharge on Sunday or of this week. 2. Collaboration with case management for connections with PACT team employee relations representative and status of a probationary reassignment.
[2017-04-03 11:20] VITALS: BP 99/59; PULSE 72; RESP 16
[2017-04-03 11:22] VITALS: BP 110/73; PULSE 120
--- NOTE | 2017-04-03 16:32 | NUR ---
Obs Dayshift Pt is spending most of the day out on the unit, pacing, engaging w/ peers and staff, playing games, watching TV, listening to music. Pt is goofy, laughing, slightly inappropriate w/ staff, engages well w/ peers, making jokes, dancing, walking. Pt states that he would like to DC soon and is ok w/ being homeless for a short time with the johnny weather. Good/OK ADL's, Good meals
--- NOTE | 2017-04-03 17:56 | NUR ---
NURSE NOTE DAY Mood: "I'm pretty happy." Endorses anxiety 2/10 related to upcoming discharge; denies depression. Affect: Elevated. Thought Process/Content: "I'm a little worried about leaving here and where Ill go. I like when people pay attention to me." Linear, logical. Denies SI, HI. Denies AH, VH. Behavior: Pt in bed all morning, up for meals. Somewhat inappropriate with staff. PRNs/NURS: Pt has had several low blood pressures and elevated readings. BP 9/59, HR 72 lying at 1120; 110/73, 120 standing at 1122.
--- NOTE | 2017-04-04 04:39 | NUR ---
Nursing Nocshift: S: "Are my meds ready yet?" O: Patient cooperative with meds. Social with staff and peers. Has been sleeping well this shift. A: Pleasant. A little anxious. P: CPOC. Monitor mood and behavior.
[2017-04-04] MEDS: risperiDONE 1 mg Tablet PO SCH ×2 (08:19→20:38)
[2017-04-04] MEDS: Lactulose 20 Gm/30 mL 30 mL Syrup PO SCH ×2 (08:19→20:38)
--- NOTE | 2017-04-04 12:38 | PROG NOTE ---
[address] [address] PROGRESS NOTE PATIENT: WILFRED HERNANDEZ : 1985 MR#: [id number] ADMIT: 03/24/2017 JOB ID: [id number] DATE: 04/04/2017 CHIEF COMPLAINT: "I spoke with Gabriel yesterday, have you heard anything back?" This per patient report. HISTORY OF PRESENT ILLNESS: As stated above the patient did identify that he spoke with his PAC team disease case manager rn yesterday and clarification is pending with AJ about the plan and intent to transition the patient's case to [facility]. It was clarified during the morning report that the patient is not on formal probation at this time and therefore his transition to [facility] would not be prohibited through legal court representation. OBJECTIVE: On mental status exam, he was cooperative, polite. He maintained good eye contact throughout. His speech was of normal tone, frequency, and volume. His mood was neutral. Affect was congruent. His thought process showed no evidence of racing thoughts, flight of ideas, loose or disconnected thinking. Thought content: He denied any evidence of current suicidal, homicidal ideation. No evidence of active hallucinations, delusions. He was alert, oriented to time and place. Attention and concentration intact. Memory intact in the short term, termite treater helper, recent. Insight and judgment were fair. PHYSICAL EXAMINATION: Vital signs are current: Temperature is unlisted, pulse 120, respirations unlisted, BP 110/73. MEDICATIONS: Review includes lactulose 20 g b.i.d., Depakote 2000 mg q.h.s., Risperdal 3 mg b.i.d., Invega Sustenna last injection on March 26, and p.r.n. doses of trazodone and Ativan. ASSESSMENT: [place] I: 1. Schizoaffective disorder, bipolar variant. 2. Polysubstance use disorder. 3. Post-traumatic stress disorder, chronic. [place] II: Antisocial personality disorder. [place] III: None. [place] IV: Stressors are noted for chronic substance abuse, history of noncompliance. [place] V: Global Assessment of Functioning of current 35. PLAN: 1. Recommendations for continuation of all medications noted. 2. Clarification pending with the PAC team of the plan and intent to transition to [facility]. [facility]
--- NOTE | 2017-04-04 16:58 | NUR ---
NURSE NOTE DAY Mood: When asked about mood pt stated "terrible" while smiling. When asked if he was experiencing anxiety pt stated "I'm shaky as a leaf." When asked about depression pt stated, "I'm sad as a dog." Affect: Elevated. Thought Process/Content: "Why do you have clement hairs?" Linear, logical, reality focused. Behavior: Attention seeking.
--- NOTE | 2017-04-04 17:48 | NUR ---
Special Event Assistant/Counselor: S: "I'm getting my exercise in right now." O: Patient slept 8.25 hours last night per staff. Patient denies S/I and H/I. He also denies auditory and visual hallucinations. Depression and anxiety were not rated. This engineering writer left a voice message for patient's out-patient counselor giving an update on patient's outcome in court today. A: Patient is cooperative, polite, improving, fair insight, fair judgment. P: Follow the care plan, coordinate with out-patient providers.
--- NOTE | 2017-04-04 18:26 | NUR ---
[facility] Day Shift Pt affect and behavior unchanged from previous shifts. Pt maintained behavioral control throughout the shift. Pt affect appears brighter than noted on previous shifts. Pt appears less impaired and more focused than noted on previous shifts. Pt spends most of the shift resting in his room in the AM, and interacting with peers/engaging in unit activities in the afternoon/evening. Pt is appropriate with staff and peers when active on the unit. Pt participated in unit activities throughout the shift. Pt attended all meals and ate approx 100% of all meals.
[2017-04-04 18:42] VITALS: BP 121/74; PULSE 78; RESP 16
--- NOTE | 2017-04-05 05:20 | NUR ---
shift production supervisor [id number] Patient stated, "Did you hear anything about me going home tomorrow?" Pt appeared excited about the possibility of discharge and had no behavioral issues or outburst noted. Pt participated in wrap up group with peers and took all HS meds. Slept 7.25 hrs. Continues to monitor for mood changes, emotional well being, and q15min checks for safety. Care continues. Addendum: 04/05/17 at 0539 by BILL POLLACK RN Correction: shift production supervisor [id number]
[2017-04-05] MEDS: Lactulose 20 Gm/30 mL 30 mL Syrup PO SCH ×2 (08:47→20:52)
[2017-04-05] MEDS: risperiDONE 1 mg Tablet PO SCH ×2 (08:48→20:53)
[2017-04-05 11:00] VITALS: BP 116/79; PULSE 101; RESP 16
--- NOTE | 2017-04-05 13:14 | NUR ---
Nursing Dayshift: S: "Is it breakfast yet?" O: Patient verbalizing getting a good night sleep. Up and to the dining room when he found out breakfast trays had arrived. Good appetite. Has been in his room much of the day. States looking forward to discharge soon. Denies anxiety, depression, harmful thoughts, and hallucinations. A: Calm. Cooperative. P: CPOC. Monitor mood and behavior.
--- NOTE | 2017-04-05 14:51 | NUR ---
Sheet Metal Installer/Counselor: S: "I want to stay around here when I discharge." O: Patient slept 8 hours last night per staff. Patient denies S/I and H/I. He also denies auditory and visual hallucinations. Depression and anxiety were not rated. This fiction writer spoke with patient's out-patient counselor, Gabriel, and will coordinate a discharge plan with Hodan CASSIDY/Gabriel. A: Patient is cooperative, polite, improving, fair insight, fair judgment. P: Follow the care plan, coordinate with out-patient providers.
--- NOTE | 2017-04-05 15:01 | PROG NOTE ---
[address] [address] PROGRESS NOTE PATIENT: WILFRED HERNANDEZ : 1985 MR#: [id number] ADMIT: 03/24/2017 JOB ID: [id number] DATE: 04/05/2017 CHIEF COMPLAINT: "I will be fine going to the long-term and waiting until I can get into placement." This per patient report. HISTORY OF PRESENT ILLNESS: As stated above the patient met with myself, telehealth case manager SHILO, and medical student. He confirmed once again that he is fine with transitioning to [facility] and did have a willingness to cooperate with the eventual transition of the PAC team to possible housing in [place]. The patient reports that he is concerned about his food card through [facility] and further clarification will follow up. OBJECTIVE: On mental status exam the patient was cooperative, polite. He maintained good eye contact throughout. His speech was of normal tone, frequency, and volume. His mood was neutral. Affect was congruent. He denied any evidence of current suicidal, homicidal thoughts. No evidence of paranoia. No evidence of active hallucinations, delusions for quite some time. His insight and judgment are gaining. PHYSICAL EXAMINATION: Vital signs are current: Temperature is listed at 36.4, pulse 78, respirations 16, BP 121/74. MEDICATION REVIEW: Includes lactulose 20 g b.i.d., Depakote 2000 mg q.h.s., Risperdal 3 mg b.i.d., Invega Sustenna last injection on March 26, 234 mg daily, trazodone 100 mg q.h.s., Ativan 1 mg q.h.s. ASSESSMENT: [place] I: 1. Schizoaffective disorder, bipolar variant. 2. Post-traumatic stress disorder, chronic. [place] II: Antisocial personality disorder. [place] III: None. [place] IV: Stressors are noted for chronic mental health, chronic substance use. [place] V: Global Assessment of Functioning of current 35. PLAN: 1. Recommendations for probable discharge on Sunday at the end of his 14 day order with transition to [facility], awaiting eventual placement in PAC team group housing in [place]. 2. Recommended continuation of all medications as noted.
--- NOTE | 2017-04-05 17:20 | NUR ---
Observations [id number] Pt cooperative, friendly and less isolative today. He attended all meals, eating 100%. Pt spent time on patio and socializing with fellow patients. Pt showered, did laundry. Discussed discharge plan with this financial writer that he would be trying to get into a fdc in [place]. Pt observed every 15 minutes of shift as directed.
[2017-04-05] MEDS: LORazepam 1 mg Tablet PO PRN (20:55)
--- NOTE | 2017-04-06 01:05 | NUR ---
Observations 1900 to 0700 Pt attended and participated in wrap up group. Pt ate a snack. Pt spends free time watching football and interacting with staff and peers. Pt has a bright, cheerful affect. Pt maintained behavioral control and showed no signs of abnormal behavior. Pt appeared asleep at 2200 and has remained asleep. Pt respirations were observed when asleep. Staff completed 15 min close observations as ordered.
--- NOTE | 2017-04-06 05:40 | NUR ---
Sleep Patient anxious about sleep during HS medication administration. Stating he "feels like he is not going to sleep well tonight". Patient requesting Trazodone and Ativan with HS medications. Medications administered and effective with seven hours of sleep noted currently and patient still sleeping.
[2017-04-06] MEDS: risperiDONE 1 mg Tablet PO SCH ×2 (09:17→21:01)
[2017-04-06] MEDS: Lactulose 20 Gm/30 mL 30 mL Syrup PO SCH ×2 (09:17→21:03)
--- NOTE | 2017-04-06 14:06 | NUR ---
Nursing Note [id number] Behavior S/O: Pt took am medications as ordered. Appetite good. Pt in room most of the day resting. Flat affect. Conversation tracking clear & organized with normal rate & rhythm. Eyes are downcast. Pleasant & cooperative. A: Pt continues to slowly improve. P: Provide supportive environment. Monitor medications & effects.
--- NOTE | 2017-04-06 14:20 | PROG NOTE ---
[address] [address] PROGRESS NOTE PATIENT: WILFRED HERNANDEZ : 1985 MR#: [id number] ADMIT: 03/24/2017 JOB ID: [id number] DATE: 04/06/2017 CHIEF COMPLAINT: "I haven't spoken to my mother since Mother's Day. I suppose I could call her to get my grandfather's phone number in [place]. I haven't talked to him for quite some time." This per patient report. HISTORY OF PRESENT ILLNESS: As stated above, the patient did identify that he would be willing to consider placing calls with his mother to obtain phone numbers for his grandmother and grandfather. He indicated that he has often thought about moving to [place], [place] to help out with his grandfather and I have encouraged him to begin a course to pursue such. The patient is aware of the plans for discharge on Sunday of next week. Medicaid hopefully will be providing transport for the patient to the [facility] in [place] and the patient will remain on a waiting list for PACT team housing in [facility]. OBJECTIVE: On mental status examination, the patient was cooperative, polite, communicating, good eye contact throughout. He denied any evidence of acute distress. His speech was of normal tone, frequency and volume. His mood was neutral. Affect was congruent. His thought process showed no evidence of racing thoughts, flight of ideas, loose or disconnection of thoughts. He was alert, oriented to time and place. Attention and concentration intact. Memory intact in the short term, mcc, recent. Insight and judgment are fair. PHYSICAL EXAMINATION: All vital signs are current. Temperature is 35.1, pulse 101, respirations 16, BP 116/79. MEDICATION REVIEW: Includes: 1. Lactulose 20 g b.i.d. 2. Depakote 2000 mg q.h.s. 3. Risperdal 3 mg b.i.d. 4. Invega Sustenna last injection on March 26 234 mg daily. 5. Trazodone 50 mg last night. 6. 2 mg of Ativan as well last night. ASSESSMENT: AXIS I 1. Schizoaffective disorder, bipolar variant. 2. Posttraumatic stress disorder, chronic. 3. Polysubstance use disorder. AXIS II Antisocial personality disorder. AXIS III None. AXIS IV Stressors are noted for disturbance of coping, history of trauma, polysubstance use. AXIS V Global assessment of functioning of current 35. PLAN: 1. Recommendations to discharge on Sunday. 2. Followup with PACT team coordination and transfer of care to a [facility] PACT team. 3. Continuation of all medications noted.
[2017-04-06 14:40] VITALS: BP 129/83; PULSE 104; RESP 16
--- NOTE | 2017-04-06 18:00 | NUR ---
Observations 0700 - 1900 Pt affect and mood was happy, friendly, social and active on the unit. Pt was pleasant, polite and cooperative when approached. Pt maintained behavior throughout the shift. Pt speech and eye contact was good. Pt attended meals in D.[facility]. and ate 100% of all 3 meals. Pt ate snack. Pt watched some TV, walked the hallway and would joke around with staff. Pt was observed every 15 minutes through the shift as ordered.
--- NOTE | 2017-04-06 20:05 | NUR ---
Four H Agent/Counselor: S: "I'm trying not to get anxious about discharge next week." O: Patient slept 8 hours last night per staff. Patient denies S/I and H/I. He also denies auditory and visual hallucinations. Depression and anxiety were not rated. Patient met with Reuben Sands of the PACT Team and signed paperwork to transfer out-patient services to PACT Team [place]. A: Patient is cooperative, polite, improving, fair insight, fair judgment. P: Follow the care plan, coordinate with out-patient providers.
--- NOTE | 2017-04-06 20:08 | NUR ---
NURSING NOTE [id number] Mood: "up in the air... I don't know how to feel" Affect: pleasant, friendly, playful Behavior: pt. paces the halls off and on, stopping at the [facility] often to chat w/staff and tell jokes. Pt. attending all unit activities. No behavioral issues. Med compliant. Thought processes: pt has been logical and linear, telling appropriate jokes, smiling often, denies AH/VH/SI/HI. He reports he is mostly looking forward to discharging on Sunday but does have concerns about how to procure a food stamp card for himself. Offered pt. some ideas for seeking out these resources. Addendum: 04/07/17 at 0646 by DIEUDONNE GUARDADO RN Pt. received PRN Ativan 2 mg @ 0100 for nightmares/anxiety. Pt. slept 7.75 hrs.
[2017-04-07] MEDS: LORazepam 1 mg Tablet PO PRN ×2 (00:59→20:58)
[2017-04-07] MEDS: Lactulose 20 Gm/30 mL 30 mL Syrup PO SCH ×2 (08:30→19:41)
[2017-04-07] MEDS: risperiDONE 1 mg Tablet PO SCH ×2 (08:30→19:41)
[2017-04-07 09:05] VITALS: BP 113/76; PULSE 67; RESP 14
--- NOTE | 2017-04-07 13:11 | PROG NOTE ---
[address] [address] PROGRESS NOTE PATIENT: WILFRED HERNANDEZ : 1985 MR#: [id number] ADMIT: 03/24/2017 JOB ID: [id number] DATE: 04/07/2017 CHIEF COMPLAINT: "I talked to Reuben. She said that they will file the paperwork for my transition to [facility]." HISTORY OF PRESENT ILLNESS: As stated above, the patient did affirm that he is aware that they are in process through the PACT team to transition his care to [facility]. He indicates that he is hopeful that this will be correct. He is aware that we will continue to work on transport to the [facility] on Sunday and will arrange medication interventions appropriately. OBJECTIVE: On mental status examination, he was bright, cooperative, interactive. He denied any evidence of acute distress. His speech was of normal tone, frequency and volume. His mood was neutral. Affect was congruent. His thought process shows no evidence of racing thoughts, flight of ideas, loose or disconnected thinking. Thought content: He denied any evidence of current suicidal or homicidal ideation. No evidence of active hallucinations, delusions. He was alert, oriented to time and place. Attention and concentration intact. Memory intact in the short term, jail, recent. Insight and judgment are fair. PHYSICAL EXAMINATION: Vital signs of current. Temperature is 36.3, pulse 67, respirations 14, BP 113/76. MEDICATION REVIEW: Includes: 1. Lactulose 20 g b.i.d. 2. Depakote 2000 mg q.h.s. 3. Risperdal 3 mg b.i.d. 4. Invega Sustenna last injection on March 26. 5. Trazodone 50-100 at h.s. 6. Ativan 1-2 mg t.i.d. p.r.n. ASSESSMENT: AXIS I 1. Schizoaffective disorder, bipolar variant. 2. Posttraumatic stress disorder, chronic. 3. Polysubstance use disorder. AXIS II Antisocial personality disorder. AXIS III None. AXIS IV Stressors are noted for transition of housing care, chronic mental health issues, polysubstance abuse. AXIS V Global assessment of functioning of current 35. PLAN: 1. Recommendations to continue with the transition as noted above. 2. Continuation of all medications noted.
--- NOTE | 2017-04-07 13:44 | NUR ---
Nursing Note [id number] Behavior, Psychotic Sx S/O: Pt has good appetite. He appeared tired this morning, but much more perky in the afternoon. He denies audio hallucinations. Slightly blunted affect. Resting in room most of the morning. Conversation tracking clear & organized with normal rate & rhythm. Pt is pleasant & cooperative. A: Pt is slowly improving. P: Provide supportive environment. Monitor medications & effects.
--- NOTE | 2017-04-07 17:33 | NUR ---
Observations 0700 to 1900 Pt did not attend recreational activities. Pt remained in bed throughout the morning hours and watching TV during afternoon hours. Pt is pleasant and cooperative with no change in behavior from recent previous shifts. Pt maintained behavioral control and showed no signs of abnormal behavior, except for being overly flirtatious at times and needing to be reminded of appropriate boundaries with staff. Respirations were observed while asleep. Breakfast: 100%. Lunch: 100%. Dinner: 100%. Staff completed 15 min close observations as ordered.
--- NOTE | 2017-04-07 21:59 | NUR ---
Nursing Note [id number] S: "I am feeling pretty good". O: Patient visible on unit. Watching TV. Denies current suicidal/homicidal ideation, or audio/visual hallucinations. A: Bright affect, smiling, interacting appropriately/cooperative. P: Monitor for response to treatment. Q 15 min checks for safety. Follow plan of care.
--- NOTE | 2017-04-08 06:50 | NUR ---
Nursing Note Braille Operator 11pm to 7am Pt asleep at start of shift and remained asleep for the duration of the shift. No complaints voiced or observed. Monitored pt q 15 minutes for safety, location and accountability
[2017-04-08] MEDS: risperiDONE 1 mg Tablet PO SCH ×2 (07:51→20:43)
[2017-04-08] MEDS: Lactulose 20 Gm/30 mL 30 mL Syrup PO SCH ×2 (07:51→20:45)
--- NOTE | 2017-04-08 12:17 | NUR ---
Nursing Note [id number] Behavior S/O: Pt has good appetite. Conversation tracking clear & organized with normal rate & rhythm. Pleasant & cooperative with staff & peers. Smiling & joking with staff. Pt staying in room most of the day except for meals. A: Pt con't to improve daily. P: Provide supportive environment. Monitor medications & effects.
--- NOTE | 2017-04-08 17:54 | NUR ---
NURSING NOTE [id number] Mood: "good, I think?" Affect: pleasant, cooperative, playful Behavior: pt. is visible in milieu most of the shift, played ping pong w/a peer, paced off and on, interacting w/peers and staff appropriately Thought processes: logical and linear, denies depression/SI. No delusional thought content noted.
--- NOTE | 2017-04-08 18:49 | NUR ---
Obs Dayshift Pt has been out in the milieu most of the shift, playing games w/ peers, appropriate, calm, reasonable, joking, laughing. Pt is looking forward to DC Good ADL's, Good meals
[2017-04-09] MEDS: LORazepam 1 mg Tablet PO PRN (02:16)
--- NOTE | 2017-04-09 06:44 | NUR ---
Nursing Note Supervisor Correspondence Section 11pm to 7am Pt asleep at start of shift. Awoke at 0230 requested a repeat of trazadone and ativan and went back to sleep for the duration of the shift. Monitored pt q 15 minutes for safety, location and accountability.
--- NOTE | 2017-04-09 07:59 | PROG NOTE ---
[address] [address] PROGRESS NOTE PATIENT: WILFRED HERNANDEZ : 1985 MR#: [id number] ADMIT: 03/24/2017 JOB ID: [id number] DATE: 04/08/2017 CHIEF COMPLAINT: " I guess will just have to work through it." This is per patient report. HISTORY OF PRESENT ILLNESS: As stated above, the patient did identify that he is aware that it may take some time for the PAC team to coordinate a transfer to [facility] but he indicated that he knows that he will be doing telephone check-ins with his case management assistant, Gabriel. He reports that he is excited to move on with his life but has some anxiety with transitioning to [place]. He indicated that he is hopeful that he will be able to obtain his food bank card and indicates that he has over 540 dollars at this time. OBJECTIVE: On mental status exam, he was bright, cooperative, interactive. He denies any evidence of acute distress. His speech is of normal tone, frequency, and volume. His mood is neutral. Affect is congruent. Thought process shows no evidence of random flight of ideas, loose or disconnected thinking. Thought content: He denied any evidence of current suicidal, homicidal ideation. No evidence of active hallucinations, delusions. Mental grasp: He was alert, oriented to time and place. Attention and concentration intact. Memory intact in the short term, care home, recent. Insight and judgment are fair. PHYSICAL EXAM: Vital signs of current, temperature is 36.3, pulse 67, respirations 14, BP 113/76. MEDICATION REVIEW: Includes: 1. Lactulose 20 g b.i.d. 2. Depakote 2000 mg q.h.s. 3. Risperdal 3 mg b.i.d. 4. Trazodone 50-100 at h.s. 5. Ativan 1-2 mg t.i.d. p.r.n. ASSESSMENT: [place] I. 1. Schizoaffective disorder, bipolar type. 2. Polysubstance use disorder. 3. Posttraumatic stress disorder, chronic. [place] II. Antisocial personality disorder. [place] III. None. [place] IV. Stressors are noted for transition of housing, chronic mental health issues, polysubstance use. [place] V. Global Assessment of Functioning current 35. PLAN: 1. Continuation of medications as noted. 2. Continuation of plans for discharge on Sunday with transition to [facility] and PAC team wait list for snf placement in [facility].
[2017-04-09] MEDS: Lactulose 20 Gm/30 mL 30 mL Syrup PO SCH ×2 (08:39→21:21)
[2017-04-09] MEDS: risperiDONE 1 mg Tablet PO SCH ×2 (08:39→21:22)
--- NOTE | 2017-04-09 14:18 | NUR ---
Nursing 7a-3p Pt has remained calm and cooperative on the unit. Out eating meals and napping through the day. Behavior remains appropriate. Georgette from [facility] called to inform Dr Gresham that pt's medicaid insurance . Case management and Dr Gresham informed. Case management is currently working this issue. Doctor provided list of medication pricing. [facility] ph# [phone] hit 3 to get Georgette.
--- NOTE | 2017-04-09 16:41 | NUR ---
Counselor/Flame Gouger: This comic book writer spoke with Coty [facility] [place] [place] ([facility]) in reference to this patient's Medicaid insurance. Patient's insurance March 26, 2017 and Coty stated that she will update [facility] case management once she gets an update.
--- NOTE | 2017-04-09 18:12 | NUR ---
NURSING NOTE [id number] Mood: "good, good, good" Affect: pleasant, calm, cooperative Behavior: pt. visible in milieu, participating in unit activities, social w/staff and peers. Med compliant. Thought processes: pt. denies any safety concerns this evening. No delusional thought content or AH/VH. He is expressing concerns re: his discharge plans tomorrow. He has reservations about going to [place] as he is unfamiliar w/the area and asked "What if I prefer to be homeless around here instead?" (referring to [place]). Provided pt. with reassurance. Also provided pt. w/directions and instructions for obtaining food stamps in the [place] area. When this press writer explained to him the expectation that he take his medications as prescribed upon discharge the pt. insinuated that he didn't plan on taking them and said "I don't usually take them when I leave the hospital..." education provided and at the end of our conversation the pt. did state he was willing to take medications upon discharge.
--- NOTE | 2017-04-09 21:44 | PROG NOTE ---
[address] [address] PROGRESS NOTE PATIENT: WILFRED HERNANDEZ : 1985 MR#: [id number] ADMIT: 03/24/2017 JOB ID: [id number] DATE: 04/09/2017 CHIEF COMPLAINT: "I hope it works out." This per patient report in reference to a transition to [facility]. HISTORY OF PRESENT ILLNESS: As stated above, the patient identified that he is fearful about the upcoming plan of transfer to [facility]. He indicated that he is excited but also understands that there will be some transition. To my understanding, the patient has filled out the applications for transfer of services to [facility]. He indicates that essentially he feels that he is ready to move on with his life. He denies any evidence of current distress. Further clarification is pending with housing case manager of the plan of transport. OBJECTIVE: On mental status exam, the patient is bright, cooperative, interactive. He maintains good eye contact. His speech is of normal tone, frequency, and volume. His mood is neutral. Affect was congruent. His thought process showed no evidence of racing thoughts, flight of ideas, loose or disconnected thinking. Thought content: He denies any evidence of current suicidal, homicidal ideation. No evidence of paranoia. He was alert, oriented to time and place. Attention and concentration intact. Memory intact in the short term, longterm, recent. Insight and judgment are fair. ASSESSMENT: [place] I. 1. Schizoaffective disorder, bipolar variant. 2. Posttraumatic stress disorder, chronic. 3. Polysubstance use disorder. [place] II. Antisocial personality disorder. [place] III. None. [place] IV. Stressors are noted for chronic mental health issues, chronic substance use. [place] V. Global Assessment of Functioning current 40. PLAN: 1. Recommendations for discharge tomorrow. 2. Calls have been placed with [facility] for delivery of medications, one-month supply was noted. 3. Recommendations for transition/transportation to be coordinated with Case Management.
--- NOTE | 2017-04-10 00:23 | NUR ---
Observations 1900 to 0700 Pt attended and participated in wrap up group. Pt ate a snack. Pt showered at start of shift. Pt was social with peers and staff. Pt maintained behavioral control and showed no signs of abnormal behavior. Pt appeared asleep at 2200 and has remained asleep. Pt respirations were observed when asleep. Staff completed 15 min close observations as ordered.
[2017-04-10] MEDS: Lactulose 20 Gm/30 mL 30 mL Syrup PO SCH (08:15)
[2017-04-10] MEDS: risperiDONE 1 mg Tablet PO SCH (08:16)
[2017-04-10 09:28] LABS: Bilirubin, Direct 0.2 mg/dL (0.0-0.3)
[2017-04-10 10:17] VITALS: BP 107/73; PULSE 90
--- NOTE | 2017-04-10 12:36 | NUR ---
Nursing 7a-3p Pt continues to be calm, pleasant and cooperative. He reports his mood as "good! I get to leave today. I am ready to get out of here and do something!" Pt offered activities but declined stating I will just watch something. Out in the milieu, eating at all meals, taking medication as ordered. No distress or complaints.
[2017-04-10] MEDS ORDERED: LACT10SO60 PO (13:46)
[2017-04-10] MEDS ORDERED: DIVA500T14 PO (13:46)
[2017-04-10] MEDS ORDERED: PALI234D IM (13:46)
[2017-04-10] MEDS ORDERED: RISP1TAB90 PO (13:46)
--- NOTE | 2017-04-10 14:33 | DIS ---
[address] [address] DISCHARGE SUMMARY PATIENT: WILFRED HERNANDEZ : 1985 MR#: [id number] ADMIT: 03/24/2017 JOB ID: [id number] DIS: ADMITTING DIAGNOSES: AXIS I 1. Schizoaffective disorder bipolar type. 2. Polysubstance use disorder including cannabis and methamphetamine. AXIS II Antisocial personality disorder. AXIS III None. AXIS IV Stressors are noted for chronic mental health medication non adherence, significant substance abuse. AXIS V Global assessment of functioning of current 30. DISCHARGE DIAGNOSES: AXIS I 1. Schizoaffective disorder bipolar type. 2. Polysubstance use disorder including cannabis and methamphetamine. 3. Posttraumatic stress disorder, chronic. AXIS II Deferred. AXIS III None. AXIS IV Stressors are noted for chronic mental health noncompliance of medications, substance use and financial difficulties with insurance. AXIS V Global assessment of functioning of current 40. REASON FOR ADMISSION: The patient was a well-known 31-year-old male admitted with multiple hospitalizations, this being his 6th hospitalization to the [facility] since June of 2016. During the course of hospitalization, the patient was agreeable to reinitiate the doses of Invega Sustenna at 234 mg every month and also a continuation of oral doses of Risperdal 3 mg b.i.d. combined with Cogentin 1 mg b.i.d. as well as Depakote eventually titrated to 2000 mg q.h.s. Throughout hospital course, the patient did have laboratory data collected included an ammonia level which was elevated on the at 80, introductions of lactulose followed with decreased ammonia levels to 61 on the and follow up levels of 75 on the , the day of discharge. On the day of discharge, his AST and ALT were within normal limits. Bilirubin was within normal limits. Albumin 4.0. His Depakote level was noted on the at 79. Throughout hospital course, discussion was held with the PACT team about the possible transfer to PACT [facility] with possible housing and continuation of services. The patient did fill out the applications with a plan of transfer. However, there was a significant delay noted. During the course of hospitalization, it was also found that the patient's Medicaid had not been reviewed since March 26 and the PACT team case technician, Gabriel, was informed on the day of discharge to continue to pursue reapplication notice. The patient was agreeable to continue to work with the PACT team in point of transition with the plan and intent [facility] and continuation of medication management services. He denied any evidence of recurrent suicidal themes. CONDITION ON TIME OF DISCHARGE: On the patient's mental status examination, he was bright, cooperative, interactive. He maintained good eye contact throughout. His mood was neutral. Affect was congruent. His thought process showed no evidence of random flight of ideas, loose or disconnected thinking. Thought content: He denied any evidence of current suicidal or homicidal ideation. No evidence of active hallucinations, delusions. He was alert, oriented to time and place. Attention and concentration intact. 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 Insight and judgment were fair. DISCHARGE PLANS: Include: 1. The patient would be transported via taxi to PACT team. mental health program manager, Gabriel, who will continue to work on placement options in [facility] and reapplication of Medicaid. 2. Continuation medications including Depakote ER 2000 mg one month supply, no refills. Reason for usage: Mood stabilizer. 3. Continuation of lactulose 20 g b.i.d., one month supply, no refills. Reason for usage: Elevated ammonia. 4. Continuation of Invega Sustenna 234 mg q.30 days, last injection March 26, one month supply, no refills. Reason for usage: Antipsychotic. 5. Continuation of Risperdal 3 mg b.i.d., one month supply, no refills. Reason for usage: Antipsychotic.
--- NOTE | 2017-04-10 14:42 | NUR ---
Discharge Pt discharged @ 1440. [employer] came and picked pt up and will be taking him straight to his appointment at [facility] in [place]. He was bright, cheerful and looking forward to being back out in the community. Ambulatory, A/O x 4. Pt signed all discharge paperwork. Gabriel his PAC team provider called and notified that Emery is on his way to see him. Prescriptions faxed to [place] and will be delivered to the PAC team office.
--- NOTE | 2017-04-12 13:15 | PROG NOTE ---
[address] [address] PROGRESS NOTE PATIENT: WILFRED HERNANDEZ : 1985 MR#: [id number] ADMIT: 03/24/2017 JOB ID: [id number] DATE: 04/02/2017 CHIEF COMPLAINT: "I just want to get out here." This per patient report. HISTORY OF PRESENT ILLNESS: As stated above, the patient continues to work on discharge planning. He is aware that we are looking at transition to the PACT team of [facility] with a temporary placement at the local correction. OBJECTIVE: On mental status examination, he was cooperative, polite. He maintained good eye contact. He denied any evidence of current suicidal or homicidal ideation. He denied any evidence of active hallucinations, delusions. He was alert, oriented to person, place, time, situation. Attention and concentration are intact. Insight and judgment were fair. MEDICATION REVIEW: Included: 1. Lactulose 20 mg b.i.d. 2. Depakote 2000 mg q.h.s. 3. Risperdal 3 mg b.i.d. 4. Invega Sustenna 234 mg, last injection March 26. 5. Trazodone 50-100 mg q.h.s. 6. Ativan 1-2 mg t.i.d. p.r.n. ASSESSMENT: AXIS I 1. Schizoaffective disorder, bipolar variant. 2. Polysubstance use disorder including methamphetamines, opiates, THC. 3. Posttraumatic stress disorder, chronic. AXIS II Antisocial personality disorder. AXIS III None. AXIS IV Stressors are noted for chronic substance use, history of noncompliance with medications, history of trauma. AXIS V Global assessment of functioning of current 35. PLANS: 1. Recommendations for continuation of discharge planning for next week. 2. Continuation of connections with PACT team. 3. Continuation of all medications noted.
[2017-04-26] MEDS ORDERED: Paliperidone Palmitate 234 mg/1.5 mL Inj IM SCH (08:30)
== END 2017-04-10 14:40 | disposition home or self-care (01) | DRG 885 ==
LOC: SED 00:29 → MHC 03-24 13:42
PROVIDERS: ADMIT Psychiatry & Neurology Psychiatry; ATTEND Psychiatry & Neurology Psychiatry
DX: F25.0 Schizoaffective disorder, bipolar type (principal); R45.851 Suicidal ideations; F12.90 Cannabis use, unspecified, uncomplicated; F15.90 Other stimulant use, unspecified, uncomplicated; F60.2 Antisocial personality disorder; F43.12 Post-traumatic stress disorder, chronic

== ENCOUNTER 2017-04-18 10:47 | Emergency (ER) | payer OTHER ==
[~2017-04-18] VITALS: Ht 182.9 cm; Wt 120.5 kg
[~2017-04-18 10:47] MED LIST changes: +LACT10SO60 PO; +PALI234D IM; +RISP1TAB90 PO
[2017-04-18 10:54] VITALS: BP 142/91; PULSE 80; RESP 22; O2SAT 97
--- NOTE | 2017-04-18 11:05 | ED.REPORT ---
HPI-Psychiatric Illness Date of Service Apr 18, 2017 ED Provider: Noble Daly MD History of Present Illness: Patient sent from Urgent Care for mental health kim mcmanus/STEVE Pt is a 31 year old male with a history of schizoaffective disorder, polysubstance use disorder, depression, and previous suicide attempts who presents to the ED complaining of suicidal ideation. He c/o associated insomnia onset 4 days ago. He denies itching and attempting to hurt himself. Pt reports that he last used methamphetamine 3 days ago. The pt presented to complaining of a foot rash bilaterally and he was referred to the ED after reporting suicidal ideations. He states "I want to go upstairs and be transferred to [facility] because I'm a bad person and need to be institutionalized." When inquired why he wants to be institutionalized, he states "because I am institutionalized. I' m probably going to alf just for coming in here for these drug tests you ordered." Nursing Notes Stated Complaint: POSSIBLE WOUND INFECTION Chief Complaint: Psychiatric Complaint Nursing Notes Reviewed: Yes ([employer], meds not reconciled) Allergies: Coded Allergies: cefaclor (Verified Allergy, Unknown, 03/22/17) Pt states he does not know his reaction. Parents told him he was allergic to this med. prednisone (Verified Allergy, Unknown, 03/22/17) sulfamethoxazole (Verified Allergy, Unknown, 03/22/17) Pt does not know reaction. His parents told him. trimethoprim (Verified Allergy, Unknown, 03/22/17) Pt does not know reaction. His parents told him. Scheduled Divalproex ER (Divalproex ER) 500 Mg Tab.er.24h 2,000 MG PO HS Lactulose (Lactulose) 20 Gm/30 Ml Solution 20 GM PO BID Paliperidone Palmitate Inj (Invega Sustenna) 156 Mg/1 Ml Syringe 156 MG IM Q30D Paliperidone Palmitate Inj (Invega Sustenna) 234 Mg/1.5 Ml Syringe 234 MG IM Q30D Risperidone (Risperdal) 2 Mg Tablet 4 MG PO HS Risperidone (Risperdal) 1 Mg Tablet 3 MG PO BID General Time Seen by MD: 11:01 Chief Complaint Suicidal ideation Hx Obtained From: Patient Arrived By: Walk-in Onset Occurred: Just prior to arrival Symptom Duration: Since onset Severity: Current: No pain currently Severity: Maximum: No pain Recent Healthcare: Recent doctor visit Similar Sx Previous: Yes Risk-Psychiatric Illness Suicide Risk Stratification RF Statements: Risk factors reviewed (not predictive) Past Medical History Past Medical History Notes: Multiple psychiatric hospitalization ([facility], most recent 02/2017) Past Medical History Schizoaffective disorder, bipolar variant. Polysubstance use disorder. Anxiety Previous suicide attempt by overdose Reports: Depression Past Surgical History none reported Smoking History Current Every Day Smoker Social History methamphetamine use in past. Previous Sucicide attemt via OD. Alcohol Use: "Social" Drug Use: Meth (per EMR), THC Other Social History: Local resident Occupation states lives in [place] 09/08/2016 Ambulatory Status Independent Review of Systems Unable to Obtain ROS Patient condition Physical Exam Initial Vital Signs Vital Signs (First) Date Time Temp Pulse Resp B/P Pulse Ox O2 Delivery O2 Flow Rate FiO2 04/18/17 10:54 36.6 80 22 142/91 97 Initial VS: Reviewed, Vital signs normal Head / Eyes: Atraumatic, Normocephalic Neck: Supple, Full range of motion Respiratory: Breath sounds normal, Clear to auscultation, No respiratory distress Cardiovascular: Regular rate & rhythm, Heart sounds normal, Intact distal pulses Abdomen / GI: Soft, Non-tender Extremities: Vascular intact, Neuro intact Skin: Warm, Dry, No cyanosis General/Constitutional: Awake Neurologic: CN II - XII intact PSYCHIATRIC: Disorganized and making multiple inappropriate comments to scribe and supervisor [employer]. I cannot tell if he is suicidal as he would not give clear answers. He has limited insight and poor judgement. He voluntarily requested to be institutionalized, but he could not say why. Erythema with a few satelite lesions on both feet. Patient this related to contact with poor wool socks. No clinical signs of infection. Patient states not currently pruritic, denies pain. No signs of induration or abscess. No open wounds. Aside from feet, no other rash/exams Ankle / Foot: Neurologic intact, Vascular intact Non-specific erythematous rash. Differential includes atopic vs. tinnea. Interpretation & Diagnostics Lab Results Interpretation Result Diagram: 04/18/17 1150 04/18/17 1150 Test 04/18/17 11:03 04/18/17 11:50 Hold Urine Received (Received) White Blood Count 10.7th/mm3 (3.8-10.1) Red Blood Count 4.86mil/mm3 (4.40-5.80) Hemoglobin 14.4g/dL (13.8-17.2) Hematocrit 41.6% (41.0-50.0) Mean Corpuscular Volume 85.6fL (81-100) Mean Corpuscular Hemoglobin 29.6pg (27.0-35.0) Mean Corpuscular Hemoglobin Concent 34.6% (32.0-37.0) Red Cell Distribution Width 13.2% (12.3-15.4) Platelet Count 186bil/L (150-400) Neutrophils (%) (Auto) 66.9% (40-74) Lymphocytes (%) (Auto) 21.6% (14-46) Monocytes (%) (Auto) 10.3% (4-12) Eosinophils (%) (Auto) 0.7% (0-5) Basophils (%) (Auto) 0.2% (0-3) Prothrombin Time 10.1sec (8.1-12.5) Prothromb Time International Ratio 0.95ratio Sodium Level 137mEq/L (134-144) Potassium Level 3.9mEq/L (3.5-5.2) Chloride Level 100mEq/L (97-108) Carbon Dioxide Level 21mmol/L (18-29) Blood Urea Nitrogen 15mg/dL (6-20) Creatinine 0.78mg/dL (0.76-1.27) Estimat Glomerular Filtration Rate 124mL/min (>59) Glucose Level 82mg/dL (60-99) Calcium Level 8.9mg/dL (8.5-10.1) Total Bilirubin 1.0mg/dL (0.0-1.2) Aspartate Amino Transf (AST/SGOT) 18U/L (0-50) Alanine Aminotransferase (ALT/SGPT) 14U/L (0-44) Alkaline Phosphatase 58U/L (25-150) Ammonia 46ug/dL (18-53) Total Protein 6.8g/dL (6.4-8.4) Albumin 4.5g/dL (3.4-5.0) Thyroid Stimulating Hormone (TSH) 0.820uIU/mL (0.450-4.500) Hold Aguilar Top Tube Received (Received) Lab Results Interpretation: CBC normal CMP normal TSH normal Ammonia normal (ammonia level was obtained due to recent hospitalization there was a mildly elevated ammonia level at that time) Alcohol negative U tox positive THC Re-Eval/Medical Decision Med Decision/Clinical Course This is a 31-year-old male sent over from urgent care for mental health evaluation. He apparently is homeless, he is followed by the PACT team has an extensive psychiatric history with multiple recent psychiatric hospitalizations to the [facility]. He apparently initially showed up at urgent care concerned about a rash in his feet, thus thought to be possibly contact dermatitis from wool socks and his feet were cleaned. He has no pain, she does not describe any itching or pruritus, the differential on my evaluation also included the possibly of tinea. Over while he was very talked about being suicidal and ED be admitted to the [facility] so sent over for further evaluation. Patient's a disorganized, poor historian here in the department and I cannot get him to really scribe what is going on or why he thinks he hospitalized. He tells me he needs to be "institutionalized in the [facility] down at [place], but gets frustrated when I asked him to explain why. Increasing inappropriate making inappropriate sexual comments regarding the described in staff the room, then became labile and intermittently angry and inappropriately to staff such as the supervisor [employer] who is driving blood, and I attempted to group home counselor the patient is inappropriate behavior he escalated and attempted to elope indicating "I will see you on the back end of a gun", at which point security was contacted and the patient was brought back to where he was placed in seclusion immediately following his face to face exam. While he was labile, he was able to be redirected. He would not talk to me about suicidal ideation or homicidal ideation. Minutes to marijuana use, as previously used methamphetamines but denies any recent days. Exams have extremely limited insight, and poor judgment, as well as a labile mood. She does not answer questions about auditory hallucinations. Medication compliance is unknown. His thinking is very simple, to the point that he may have an underlying developmental delay- or at least gives that impression. He is focused on hungry and requesting a meal, and through his labile behavior that is his one singular request-despite his lack of cooperative ability with us. he does not clinically appear intoxicated or withdrawal. An METABOLIC SPECIALIST evaluation is being requested, and the pact team is been notified of the patient's arrival on the department. See METABOLIC SPECIALIST notes - PACT team came and saw patient and reviewed case with METABOLIC SPECIALIST and gave the patient is at baseline, they do not think the patient requires hospitalization and do not recommend hospitalization or further change-they recommend direct discharge. Patient has no acute medical issues, and I have no further alternatives the patient's being discharged per their recommendations. Source of Hx: Old records Re-Evaluation/Progress #1: Time of Eval: 11:11 Re-Evaluation/Progress Note: The pt was making entirely inappropriate comments to the scribe and supervisor [employer]. Upon asking him to correct his behavior, the pt cursed "I'm out. I'll see you on the other side of a gun" and attempted to leave the ED. Re-Evaluation/Progress #2: Time of Eval: 11:20 Re-Evaluation/Progress Note: [id number] evaluation was completed within 11:01-11:20. Consultation : Call Returned at: 13:38 Note: Mental Health Personal consulted with the pt and determined that the pt does not require hospitalization and should be discharged. Differential Diagnosis: Negative: Alcohol abuse, Anxiety, Bipolar disorder, Homicidal, Mood disorder Counseled Regarding: Diagnosis, Lab results, Need for follow-up, When/why to return to ED Discharge & Departure Impression: Primary Impression: Schizoaffective disorder Schizoaffective disorder type: bipolar Qualified Code: F25.0 - Schizoaffective disorder, bipolar type Additional Impressions: Rash and nonspecific skin eruption Antisocial behavior Homelessness Disposition: Home Discharge Condition All VS Reviewed: Yes Condition: Stable Additional Instructions: 1. No acute medical issue was identified. 2. You were seen and evaluated by the mental health personnel and determined not to require hospitalization. 3. Continue your current medications. 4. Contiue to follow up with the PACT team and your case advocate Gabriel. 5. Call the crisis line at or return to the ED if new or worsening symptoms. 6. Avoid the wool socks that may have caused a contact dermatitis. Additionally , I recommend applying the antifungal cream clotrimazole once a day (available over the counter) as this may be mild athlete's foot. Referrals: NOPCP (PCP) Scribe Attestation Portions of this note were transcribed by Arabella Mahan. I, Dr. Daly personally performed the history, physical exam and medical decision-making; I reviewed and confirmed the accuracy of the information in the transcribed note. Signed by: Emily Cheung, 04/18/17. copies to: Noble Roger MD Apr 18, 2017 11:05 Arabella Landa Apr 18, 2017 11:21
[2017-04-18 12:01] LABS: BASOPHILS % (AUTO) 0.2 % (0-3); EOSINOPHILS % (AUTO) 0.7 % (0-5); MONOCYTES % (AUTO) 10.3 % (4-12); Mean Corpuscular Hemoglobin 29.6 pg (27.0-35.0); Mean Corpuscular Volume 85.6 fL (81-100); NEUTROPHILS % (AUTO) 66.9 % (40-74); Platelet Count 186 bil/L (150-400)
[2017-04-18 12:13] LABS: INR 0.95 ratio
== END 2017-04-18 14:30 | disposition home or self-care (01) ==
LOC: SED 10:47
DX: F25.0 Schizoaffective disorder, bipolar type (principal); R21 Rash and other nonspecific skin eruption; G47.00 Insomnia, unspecified; F41.8 Other specified anxiety disorders; F17.200 Nicotine dependence, unspecified, uncomplicated; Z72.811 Adult antisocial behavior; Z91.5 Personal history of self-harm; Z59.0 Homelessness; Z88.2 Allergy status to sulfonamides; Z88.8 Allergy status to other drugs, medicaments and biological substances

== ENCOUNTER 2017-04-19 21:30 | Emergency (ER) | payer OTHER ==
[~2017-04-19] VITALS: Ht 185.4 cm; Wt 122.7 kg
[2017-04-19 21:33] VITALS: BP 156/94; PULSE 100; RESP 18; O2SAT 97
--- NOTE | 2017-04-19 22:08 | ED.REPORT ---
HPI-Psychiatric Illness Date of Service Apr 19, 2017 ED Provider: Eliud Herrera MD Pt is a 31 year old male with a hx of depression, Schizoaffective disorder, and multiple psych admissions presenting to the ED complaining of suicidal ideation without a plan. He was recently admitted to the psychiatric unit until last week for similar symptoms. Pt arrives to the ED laying on the bed masturbating and won't cover up. Aggressively expressing sexual comments toward the female nurses. Nursing Notes Stated Complaint: MENTAL HEALTH Chief Complaint: Psychiatric Complaint Nursing Notes Reviewed: Yes Allergies: Coded Allergies: cefaclor (Verified Allergy, Unknown, 04/19/17) Pt states he does not know his reaction. Parents told him he was allergic to this med. prednisone (Verified Allergy, Unknown, 04/19/17) sulfamethoxazole (Verified Allergy, Unknown, 04/19/17) Pt does not know reaction. His parents told him. trimethoprim (Verified Allergy, Unknown, 04/19/17) Pt does not know reaction. His parents told him. Scheduled Divalproex ER (Divalproex ER) 500 Mg Tab.er.24h 2,000 MG PO HS Lactulose (Lactulose) 20 Gm/30 Ml Solution 20 GM PO BID Paliperidone Palmitate Inj (Invega Sustenna) 156 Mg/1 Ml Syringe 156 MG IM Q30D Paliperidone Palmitate Inj (Invega Sustenna) 234 Mg/1.5 Ml Syringe 234 MG IM Q30D Risperidone (Risperdal) 2 Mg Tablet 4 MG PO HS Risperidone (Risperdal) 1 Mg Tablet 3 MG PO BID General Time Seen by MD: 21:54 Chief Complaint Suicidal ideation Hx Obtained From: Patient Arrived By: Walk-in Symptom Duration: Since onset Recent Healthcare: Recent hospitalization Similar Sx Previous: Yes Risk-Psychiatric Illness Suicide Risk Stratification Suicide Risk Factors - Adult: : Previous attempt: Prior psych admission RF Statements: Risk factors reviewed Past Medical History Past Medical History Notes: Multiple [facility] ( [facility], most recent [facility]/2017) Past Medical History Schizoaffective disorder, bipolar variant. Polysubstance use disorder. Anxiety Previous suicide attempt by overdose Reports: Depression Past Surgical History none reported Smoking History Current Every Day Smoker Social History methamphetamine use in past. Previous Sucicide attemt via OD. Alcohol Use: "Social" Drug Use: Meth, THC Other Social History: Local resident Occupation states lives in [place] 09/08/2016 Ambulatory Status Independent Review of Systems Unable to Obtain ROS Mental status Physical Exam Initial Vital Signs Vital Signs (First) Date Time Temp Pulse Resp B/P Pulse Ox O2 Delivery O2 Flow Rate FiO2 04/19/17 21:33 36.8 100 18 156/94 97 Room Air Initial VS: Reviewed, Vital signs abnormal ENT: Mucous membranes moist, Conjunctiva normal, No scleral icterus Neck: Supple, Non-tender, Full range of motion Respiratory: Breath sounds normal, Clear to auscultation, No respiratory distress Cardiovascular: Regular rate & rhythm, Heart sounds normal, Intact distal pulses Abdomen / GI: Soft, Non-tender, No guarding, No rebound, No distention Extremities: Vascular intact, Neuro intact, No swelling, No tenderness Skin: Warm, Dry, No cyanosis General/Constitutional: Awake, Alert Psychiatric: Not homicidal Abnormal Thinking / Perception: Positive: Suicidal, no plan Wide eyed stare, responds to most questions with a question and gets really personal with his questions. Interpretation & Diagnostics Lab Results Interpretation Test 04/19/17 23:48 Hold Urine Received (Received) Re-Eval/Medical Decision Med Decision/Clinical Course 31-year-old male who was brought in by police because of his behavior. He was evaluated by his PAC team counselor who recommended discharge and follow-up later today with the PAC team. Re-Evaluation/Progress : Time of Eval: 01:55 Patient Status: Condition improved Re-Evaluation/Progress Note: Pt sleeping soundly. Counseled Regarding: Diagnosis, Lab results, Need for follow-up, When/why to return to ED Discharge & Departure Impression: Primary Impression: Schizoaffective disorder Additional Impression: Homelessness )( Condition at Discharge: No danger to self, No danger to others, No suicidal ideation, No homicidal ideation Disposition: Home Discharge Condition All VS Reviewed: Yes Condition: Improved Patient Instructions: Schizoaffective Disorder (ED) Additional Instructions: Follow-up later today with your PAC team. Continue your medications as prescribed. Referrals: NOPCP (PCP) Scribe Attestation Portions of this note were transcribed by Tulio Crawford. I, Dr. Herrera personally performed the history, physical exam and medical decision-making; I reviewed and confirmed the accuracy of the information in the transcribed note. Signed by: Emily Sheriff, 04/19/2017. Eliud Herrera MD Apr 19, 2017 22:08 TULIO CRAWFORD Apr 19, 2017 22:12
[2017-04-19 23:30] VITALS: BP 148/88; PULSE 102; RESP 18; O2SAT 98
[2017-04-20 03:30] VITALS: BP 146/74; PULSE 82; RESP 16; O2SAT 98
[2017-04-20 06:15] VITALS: BP 148/72; PULSE 78; RESP 18; O2SAT 98
== END 2017-04-20 06:01 | disposition home or self-care (01) ==
LOC: SED 21:30
DX: F25.0 Schizoaffective disorder, bipolar type (principal); F25.1 Schizoaffective disorder, depressive type; F17.200 Nicotine dependence, unspecified, uncomplicated; Z59.0 Homelessness; Z88.1 Allergy status to other antibiotic agents; Z88.8 Allergy status to other drugs, medicaments and biological substances